=== PATIENT | male | born 1980 | race Caucasian/White ===

== ENCOUNTER 2020-09-24 00:54 | Inpatient (IN) ==
[2020-09-24] MEDS ORDERED: SODIUM CHLORIDE 0.9% 1000ML 1,000 ML IV SCH (01:45)
[2020-09-24 01:46] LABS: iSTAT Creatinine 1.3 mg/dl (0.6-1.3); iSTAT Hemoglobin 18.4 g/dl (14.0-18.0); iSTAT Ionized Calcium 0.98 mmol/l (1.12-1.32); iSTAT Potassium 4.1 mmol/L (3.3-5.0)
[2020-09-24] MEDS ORDERED: LABETALOL HCL IV 5 MG/ML 20ML IV STA (01:46)
[2020-09-24 01:57] LABS: Basophils # (auto) 0.04 K/uL (0-0.2); Basophils % (auto) 0.4 %; Eosinophils # (auto) 0.04 K/uL (0-0.5); Eosinophils % (auto) 0.4 %; Hematocrit (blood only) 51.4 % (42-52); Hemoglobin 17.2 g/dL (14.0-18.0); Immature Granulocytes # (auto) 0.03 K/uL (0.00-0.02); Immature Granulocytes % (auto) 0.3 %; Lymphocytes # (auto) 2.13 K/uL (1.2-3.4); Lymphocytes % (auto) 21.6 %; Mean Corpuscular Hemoglobin 29.8 pg (25-34); Mean Corpuscular Hgb Conc 33.5 g/dL (32-36); Mean Corpuscular Volume 88.9 fL (80-100); Mean Platelet Volume 9.5 fL (7.4-10.4); Monocytes # (auto) 0.51 K/uL (0.11-0.59); Monocytes % (auto) 5.2 %; Neutrophils % (auto) 72.1 %; Platelet Count 364 K/uL (130-400); RDW Coefficient of Variation 14.4 % (11.5-14.5); RDW Standard Deviation 46.6 fL (36.4-46.3); Red Blood Count 5.78 M/uL (4.7-6.1); White Blood Count 9.85 K/uL (4.8-10.8)
[2020-09-24] MEDS ORDERED: OPTIRAY 320 125ml IV ONE (02:04)
[2020-09-24 02:08] LABS: INR 1.4 (0.9-1.1); Partial Thromboplastin Time 26.3 Seconds (21.0-31.0)
[2020-09-24 02:15] LABS: BUN Creatinine Ratio 14.9 (10-20); Calcium 9.1 mg/dl (8.5-10.1); Creatinine Clr Calc Pharmacy 97.4 ml/min; Est GFR (African American) 75.9 ml/min; Est GFR (Non-African American) 65.5 ml/min; Magnesium 1.9 mg/dl (1.8-2.4); Potassium 4.1 mmol/L (3.5-5.1)
[2020-09-24 02:31] LABS: Albumin Globulin Ratio 1.1 (0.9-2); Albumin Level 3.7 gm/dl (3.4-5.0); Bilirubin,Total 1.8 mg/dl (0.2-1); Globulin 3.4 gm/dl (2.5-4.0); Total Protein 7.1 gm/dl (6.4-8.2); Troponin I 0.267 ng/ml (0-0.045)
--- NOTE | 2020-09-24 02:34 | CT Scan Report ---
CT angio abd pelvis wo/w con CT DOSE: 3697.58 mGy.cm CLINICAL HISTORY: pain, sob, htn, diaph TECHNIQUE: A dose lowering technique was utilized adhering to the principles of ALARA. COMPARISON STUDY: None FINDINGS: For limited evaluation of lower chest please see report of CT of the chest performed at the same time . Abdominal aorta is normal in caliber without evidence of aortic wall hematoma, aneurysmal dilatation or dissection. Bilateral renal, celiac and superior mesenteric artery and its branches are patent and well opacified. Liver is normal in size with mild decrease in attenuation of its parenchyma and no evidence of focal lesions. Mild ascites is seen. Gallbladder, spleen, pancreas and bilateral adrenal glands are unremarkable. No hydronephrosis or nephrolithiasis is seen. Urinary bladder is partially decompressed which limits evaluation. Prostate gland is not enlarged. Large left inguinal hernia is seen containing nondilated loop of large bowel. Small hiatal hernia is seen. Small amount of fluid collection is seen surrounding distal aspect of es ophagus. Bowel loops are nondilated. Appendix is not well seen. No free intra-abdominal gas is seen. Diffuse mesenteric edema and mild ascites is seen. Small amount of free fluid is also seen within retroperitoneal region. Multiple small lymph nodes are seen within the retroperitoneal region. No definite lymphadenopathy se en within mesentery. Osseous structures: Multilevel degenerative changes of the spine. Old fracture deformity of the right iliac bone. Diffuse subcutaneous edema is seen. IMPRESSION: 1. No evidence of aortic dissection, aneurysmal dilatation, aortic wall hematoma or fractures seen. 2. Large left inguinal hernia containing nondilated loop of large bowel. No evidence of bowel obstru ction. 3. Mild ascites, anasarca and diffuse mesenteric edema most likely representing edematous state and not acute intra-abdominal process. 4. Normal appearance of the bowel and solid organs. ACT 112: Negative or not required by law. The above report was generated using voice recognition software. It may contain grammatical, syntax o r spelling errors. Electronically signed by: Catherine Robertson DO 09/24/2020 2:33 AM
--- NOTE | 2020-09-24 02:45 | CT Scan Report ---
CT ANGIOGRAM OF THE CHEST COMBO CLINICAL HISTORY: Diaphoresis COMPARISON STUDY: None TECHNIQUE: Before and following the IV administration of 180 cc of Optiray, CT angiogram of the chest was performed from the thoracic inlet to the upper abdomen utilizing the dissection protocol. Images are reviewed in the axial, sagittal, and coronal planes. 3-D MIPS images are created and assessed. I V contrast was administered without complication. A dose lowering technique was utilized adhering to the principles of ALARA. CT DOSE: FINDINGS: Thoracic aorta is normal in caliber without evidence of dissection, hematoma or aneurysmal dilatation . Pulmonary artery is normal in caliber. Opacification within pulmonary artery is insufficient for eval uation for pulmonary artery embolus. There is no axillary, supra clavicle or internal mammary lymphadenopathy seen. There are multiple mottled mediastinal and hilar lymph nodes are seen measuring up to 1.8 cm in short axis. Thyroid: Imaged portions of the thyroid gland are normal in size and attenuation. Heart: Mild four-chamber cardiomegaly. Mild pericardial effusion is seen. Lungs and pleural spaces: Tracheobronchial tree is patent. There is 3.3 x 4.0 cm subpleural mass within left lower lobe with central area of decrease attenuatio n which might represent neoplastic or infectious process. Due to decreased attenuation within center of this mass pulmonary infarct is also possible. Small area of groundglass attenuation is seen at dependent portion of the right lower lobe. Trace edu ateral pleural effusion is seen.. Skeletal structures: No definite aggressive osseous lesions are seen. Mild degenerative changes of th e spine. Bilateral gynecomastia is seen. IMPRESSION: 1. Normal appearance of thoracic aorta without aneurysmal dilatation or dissection. 2. Mild four-chamber cardiomegaly. Pericardial effusion is seen. 3. Mediastinal lymphadenopathy. Questionable mass within left lower lobe as detailed above. Please c orrelate above-mentioned findings with prior history of neoplastic process. 4. Bilateral gynecomastia. ACT 112: Positive. There are findings on this exam that require communication between the performing entity and the patient following Patient Test Result Information Act ([place] Act 112) guidelines. The above report was generated using voice recognition software. It may contain grammatical, syntax o r spelling errors. Electronically signed by: Catherine Robertson DO 09/24/2020 2:43 AM
--- NOTE | 2020-09-24 02:58 | Emergency Department Note ---
History of Present Illness General Chief complaint: GI Assessment Stated complaint: UPSET STOMACH,DIARRHEA,SOME TROUBLE BREATHING Time Seen by Provider: 09/24/20 01:15 History of Present Illness This 40-year-old presents to the ER complaining of shortness of breath, abdominal discomfort, leg swelling, vomiting and diarrhea Location: Generalized Quality: Weak Severity: Moderate Duration: Past 2 weeks Timing: Started 2 weeks ago Context: Symptoms got worse and patient came in Modifying factors: better with rest; worse with activity Patient denies chest pain, fevers, flulike illness, urinary symptoms. He has not seen a doctor in greater than 10 years. No drug use. His appendix has been removed. He lives at home with his brother. Home Medications Medication Instructions Recorded Confirmed Type No Known Home Medications 09/24/20 09/24/20 History Allergies Allergy/AdvReac Type Severity Reaction Status Date / Time mold Allergy Intermediate Difficulty Verified 09/24/20 02:22 Breathing pollen extracts Allergy Intermediate Difficulty Verified 09/24/20 02:22 Breathing Past Med/Surg History Medical History High blood pressure Surgical History History of appendectomy Social History Smoking Status: Never smoker Preferred Language: Kosovan Feels Safe at Home: Yes Review of Systems A total of 10 systems reviewed and were otherwise negative Physical Exam Vital Signs Vital Signs - 24 hr 09/24/20 01:02 09/24/20 02:00 09/24/20 02:28 Temperature 36.4 C L Temperature Source Oral Pulse Rate 121 H 111 H Pulse Rate from SpO2 Sensor 111 H Respiratory Rate 20 16 Respiratory Effort / Characteristics Non-Labored Blood Pressure 171/118 H 162/124 H Blood Pressure Mean 135 136 Pulse Oximetry 100 96 99 Oxygen Delivery Method Room Air Room Air Room Air Sepsis Recent Fever Within 48 Hours No Sepsis New/Unexplained Change in Mental Status No Sepsis Action Taken by Nursing No Action Required 09/24/20 02:30 09/24/20 03:00 09/24/20 03:30 Temperature Temperature Source Pulse Rate 108 H 91 H 94 H Pulse Rate from SpO2 Sensor 108 H 91 H Respiratory Rate 13 18 20 Respiratory Effort / Characteristics Non-Labored Blood Pressure 154/117 H 140/108 H 139/98 Blood Pressure Mean 129 118 111 Pulse Oximetry 99 97 98 Oxygen Delivery Method Room Air Room Air Sepsis Recent Fever Within 48 Hours Sepsis New/Unexplained Change in Mental Status Sepsis Action Taken by Nursing 09/24/20 04:00 09/24/20 04:30 Temperature Temperature Source Pulse Rate 93 H 97 H Pulse Rate from SpO2 Sensor Respiratory Rate 22 22 Respiratory Effort / Characteristics Blood Pressure 146/115 H 146/124 H Blood Pressure Mean 125 131 Pulse Oximetry Oxygen Delivery Method Sepsis Recent Fever Within 48 Hours Sepsis New/Unexplained Change in Mental Status Sepsis Action Taken by Nursing VITALS: Vitals are noted on the nurse's note and reviewed by myself. Vital signs hypertensive tachycardic. GENERAL: Diaphoretic white male who appears unwell with anasarca SKIN: The skin was without rashes,or bruising. There is no tenting of the skin. Capillary reflex less than 2 seconds. HEAD: Normocephalic atraumatic. EARS: External auditory canals clear, tympanic membranes pearly moses without erythema or effusion bilaterally. EYES: Pupils equal round and reactive to light and accommodation. Conjunctivae without injection, sclerae without icterus. Extraocular movements intact. NOSE: Patent, turbinates without inflammation or discharge. No sinus tenderness. MOUTH: Mucous membranes moist. Pharynx without erythema or exudate. Uvula midline. Airway patent. Tongue does not deviate. NECK: Supple without nuchal rigidity. No lymphadenopathy. No thyromegaly. Cervical spine is nontender. No JVD. HEART: Tachycardic rate and rhythm LUNGS: Clear to auscultation bilaterally without wheezes, rales or rhonchi. No retractions or accessory muscle use. ABDOMEN: Positive bowel sounds x 4. Normal tympanic percussion. Soft, nontender, without masses or organomegaly. Guerra sign negative. No guarding or rebound tenderness. No CVA tenderness MUSCULOSKELETAL: No muscle atrophy noted. +2 pitting edema up to the knees bilaterally NEURO: Patient was alert and oriented to person place and time. Normal sensation to light and sharp touch. No focal neurological deficits. Course Administered Medications Heparin Sodium/Dextrose (Heparin Sodium/Dextrose) 25,000 units in 500 mls @ 34 mls/hr IV .[id number] [facility]; Protocol Stop: 10/24/20 04:28 Last Admin: 09/24/20 05:05 Dose: 1,700 units/hr, 34 mls/hr Documented by: [id number] Cosigned by: [id number] Discontinued Medications Furosemide (Furosemide 40 Mg/4 Ml Vial) 20 mg IV NOW STA Stop: 09/24/20 04:42 Last Admin: 09/24/20 05:05 Dose: 20 mg Documented by: [id number] Heparin Sodium/Dextrose (Heparin Iv Adult Wt-Based Standard *No* Bolus Protocol) 1 ea N/A NOW STA; Protocol Stop: 09/24/20 04:23 Last Admin: 09/24/20 04:42 Dose: Not Given Documented by: [id number] Sodium Chloride (Nss 1000ml) 1,000 mls @ 999 mls/hr IV .[id number] [facility] Stop: 09/24/20 02:45 Last Infusion: 09/24/20 03:26 Dose: 0 mls/hr Documented by: [id number] Admin: 09/24/20 02:07 Dose: 999 mls/hr Documented by: [id number] Calcium Gluconate 1,000 mg/ (Sodium Chloride) 60 mls @ 240 mls/hr IV NOW ONE Stop: 09/24/20 04:36 Last Admin: 09/24/20 05:05 Dose: 240 mls/hr Documented by: [id number] Ioversol (Optiray 320 125ml) 125 ml IV ONCE ONE Stop: 09/24/20 02:05 Last Admin: 09/24/20 02:04 Dose: 118 ml Documented by: [id number] Labetalol HCl (Labetalol Hcl Iv 5 Mg/Ml 20ml) 10 mg IV NOW STA Stop: 09/24/20 01:47 Last Admin: 09/24/20 02:29 Dose: 10 mg Documented by: [id number] Cosigned by: [id number] Medical Decision Making Medical Records Attestation: I reviewed the patient's medical records. Laboratory Data Attestation: I reviewed the patient's lab results. Result diagrams: 09/24/20 01:35 09/24/20 01:35 Lab Results 09/24/20 09/24/20 09/24/20 Range/Units 01:25 01:33 01:35 WBC 9.85 (4.8-10.8) K/uL RBC 5.78 (4.7-6.1) M/uL Hgb 17.2 (14.0-18.0) g/dL POC Hgb 18.4 H (14.0-18.0) g/dl Hct 51.4 (42-52) % POC Hct 54 H (42-52) % MCV 88.9 (80-100) fL MCH 29.8 (25-34) pg MCHC 33.5 (32-36) g/dL RDW Std Deviation 46.6 H (36.4-46.3) fL RDW Coeff of Camryn 14.4 (11.5-14.5) % Plt Count 364 (130-400) K/uL MPV 9.5 (7.4-10.4) fL Immature Gran % (Auto) 0.3 % Neut % (Auto) 72.1 % Lymph % (Auto) 21.6 % [place] % (Auto) 5.2 % Eos % (Auto) 0.4 % Baso % (Auto) 0.4 % Neut # (Auto) 7.10 H (1.4-6.5) K/uL Lymph # (Auto) 2.13 (1.2-3.4) K/uL [place] # (Auto) 0.51 (0.11-0.59) K/uL Eos # (Auto) 0.04 (0-0.5) K/uL Baso # (Auto) 0.04 (0-0.2) K/uL Immature Gran # (Auto) 0.03 H (0.00-0.02) K/uL PT (9.0-12.0) Seconds INR (0.9-1.1) APTT (21.0-31.0) Seconds PTT Ratio POC Sodium 136 (135-144) mmol/L Sodium (136-145) mmol/L POC Potassium 4.1 (3.3-5.0) mmol/L Potassium (3.5-5.1) mmol/L POC Chloride 99 L (101-112) mmol/L Chloride (98-107) mmol/L Carbon Dioxide (21-32) mmol/L POC Total CO2 21 L (24-31) mmol/L Anion Gap (3-11) POC Anion Gap 20.0 (16-25) mmol/L POC BUN 21 H (7-18) mg/dl BUN (7-18) mg/dl Creatinine (0.6-1.4) mg/dl POC Creatinine 1.3 (0.6-1.3) mg/dl Est Cr Clr Drug Dosing ml/min Est GFR ( Amer) ml/min Est GFR (Non-Af Amer) ml/min BUN/Creatinine Ratio (10-20) Glucose (70-99) mg/dl POC Glucose (other) 104 H (70-99) mg/dl Lactate (0.4-2.0) mmol/L Calcium (8.5-10.1) mg/dl POC Ioniz Calcium Maykel 0.98 L (1.12-1.32) mmol/l Magnesium (1.8-2.4) mg/dl Ferritin (8-388) ng/ml Total Bilirubin (0.2-1) mg/dl AST (15-37) U/L ALT (12-78) U/L Alkaline Phosphatase (45-117) U/L Troponin I (0-0.045) ng/ml NT-Pro-B Natriuret Pep (0-450) pg/ml Total Protein (6.4-8.2) gm/dl Albumin (3.4-5.0) gm/dl Globulin (2.5-4.0) gm/dl Albumin/Globulin Ratio (0.9-2) Procalcitonin (0-0.5) ng/ml TSH (0.300-4.500) uIu/ml Urine Color Urine Appearance (Clear) Urine pH (4.5-7.5) Ur Specific [place] (1.000-1.030) Urine Protein (Negative) Urine Glucose (UA) (Negative) Urine Ketones (Negative) Urine Blood (Negative) Urine Nitrite (Negative) Urine Bilirubin (Negative) Urine Urobilinogen (Negative) Ur Leukocyte Esterase (Negative) Urine WBC (Auto) (0-5) /hpf Urine RBC (Auto) (0-4) /hpf U Hyaline Cast (Auto) (0-5) /lpf U Epithel Cells (Auto) (0-5) /lpf Urine Bacteria (Auto) (Negative) Urine Opiates Screen (Neg) Ur Methadone, Qual (Neg) Urine Barbiturates (Neg) Ur Phencyclidine (PCP) (Neg) U Amphetamin/Meth Scrn (Neg) MDMA (Ecstasy) Screen (Neg) U Benzodiazepines Scrn (Neg) Ur Cocaine Metabolite (Neg) U Marijuana (THC) Screen (Neg) Anaplasma Smear See Comment Lyme Disease IgG Ab (Negative) Lyme Disease IgM Ab (Negative) COVID-19 Eval Order SARS-CoV-2 (PCR) (Negative) Hep Bs Antigen Neg (Neg) Hepatitis C Antibody Neg (Neg) 09/24/20 09/24/20 09/24/20 Range/Units 01:35 01:35 01:35 WBC (4.8-10.8) K/uL RBC (4.7-6.1) M/uL Hgb (14.0-18.0) g/dL POC Hgb (14.0-18.0) g/dl Hct (42-52) % POC Hct (42-52) % MCV (80-100) fL MCH (25-34) pg MCHC (32-36) g/dL RDW Std Deviation (36.4-46.3) fL RDW Coeff of Camryn (11.5-14.5) % Plt Count (130-400) K/uL MPV (7.4-10.4) fL Immature Gran % (Auto) % Neut % (Auto) % Lymph % (Auto) % [place] % (Auto) % Eos % (Auto) % Baso % (Auto) % Neut # (Auto) (1.4-6.5) K/uL Lymph # (Auto) (1.2-3.4) K/uL [place] # (Auto) (0.11-0.59) K/uL Eos # (Auto) (0-0.5) K/uL Baso # (Auto) (0-0.2) K/uL Immature Gran # (Auto) (0.00-0.02) K/uL PT 14.0 H (9.0-12.0) Seconds INR 1.4 H (0.9-1.1) APTT 26.3 (21.0-31.0) Seconds PTT Ratio 1.0 POC Sodium (135-144) mmol/L Sodium 133 L (136-145) mmol/L POC Potassium (3.3-5.0) mmol/L Potassium 4.1 (3.5-5.1) mmol/L POC Chloride (101-112) mmol/L Chloride 102 (98-107) mmol/L Carbon Dioxide 23 (21-32) mmol/L POC Total CO2 (24-31) mmol/L Anion Gap 8.0 (3-11) POC Anion Gap (16-25) mmol/L POC BUN (7-18) mg/dl BUN 20 H (7-18) mg/dl Creatinine 1.33 (0.6-1.4) mg/dl POC Creatinine (0.6-1.3) mg/dl Est Cr Clr Drug Dosing 97.4 ml/min Est GFR ( Amer) 75.9 ml/min Est GFR (Non-Af Amer) 65.5 ml/min BUN/Creatinine Ratio 14.9 (10-20) Glucose 98 (70-99) mg/dl POC Glucose (other) (70-99) mg/dl Lactate (0.4-2.0) mmol/L Calcium 9.1 (8.5-10.1) mg/dl POC Ioniz Calcium Maykel (1.12-1.32) mmol/l Magnesium 1.9 (1.8-2.4) mg/dl Ferritin (8-388) ng/ml Total Bilirubin 1.8 H (0.2-1) mg/dl AST 71 H (15-37) U/L ALT 271 H (12-78) U/L Alkaline Phosphatase 64 (45-117) U/L Troponin I 0.267 H* (0-0.045) ng/ml NT-Pro-B Natriuret Pep 30571 H (0-450) pg/ml Total Protein 7.1 (6.4-8.2) gm/dl Albumin 3.7 (3.4-5.0) gm/dl Globulin 3.4 (2.5-4.0) gm/dl Albumin/Globulin Ratio 1.1 (0.9-2) Procalcitonin < 0.05 (0-0.5) ng/ml TSH (0.300-4.500) uIu/ml Urine Color Urine Appearance (Clear) Urine pH (4.5-7.5) Ur Specific [place] (1.000-1.030) Urine Protein (Negative) Urine Glucose (UA) (Negative) Urine Ketones (Negative) Urine Blood (Negative) Urine Nitrite (Negative) Urine Bilirubin (Negative) Urine Urobilinogen (Negative) Ur Leukocyte Esterase (Negative) Urine WBC (Auto) (0-5) /hpf Urine RBC (Auto) (0-4) /hpf U Hyaline Cast (Auto) (0-5) /lpf U Epithel Cells (Auto) (0-5) /lpf Urine Bacteria (Auto) (Negative) Urine Opiates Screen (Neg) Ur Methadone, Qual (Neg) Urine Barbiturates (Neg) Ur Phencyclidine (PCP) (Neg) U Amphetamin/Meth Scrn (Neg) MDMA (Ecstasy) Screen (Neg) U Benzodiazepines Scrn (Neg) Ur Cocaine Metabolite (Neg) U Marijuana (THC) Screen (Neg) Anaplasma Smear Lyme Disease IgG Ab (Negative) Lyme Disease IgM Ab (Negative) COVID-19 Eval Order SARS-CoV-2 (PCR) (Negative) Hep Bs Antigen (Neg) Hepatitis C Antibody (Neg) 09/24/20 09/24/20 09/24/20 Range/Units 01:35 01:35 02:21 WBC (4.8-10.8) K/uL RBC (4.7-6.1) M/uL Hgb (14.0-18.0) g/dL POC Hgb (14.0-18.0) g/dl Hct (42-52) % POC Hct (42-52) % MCV (80-100) fL MCH (25-34) pg MCHC (32-36) g/dL RDW Std Deviation (36.4-46.3) fL RDW Coeff of Camryn (11.5-14.5) % Plt Count (130-400) K/uL MPV (7.4-10.4) fL Immature Gran % (Auto) % Neut % (Auto) % Lymph % (Auto) % [place] % (Auto) % Eos % (Auto) % Baso % (Auto) % Neut # (Auto) (1.4-6.5) K/uL Lymph # (Auto) (1.2-3.4) K/uL [place] # (Auto) (0.11-0.59) K/uL Eos # (Auto) (0-0.5) K/uL Baso # (Auto) (0-0.2) K/uL Immature Gran # (Auto) (0.00-0.02) K/uL PT (9.0-12.0) Seconds INR (0.9-1.1) APTT (21.0-31.0) Seconds PTT Ratio POC Sodium (135-144) mmol/L Sodium (136-145) mmol/L POC Potassium (3.3-5.0) mmol/L Potassium (3.5-5.1) mmol/L POC Chloride (101-112) mmol/L Chloride (98-107) mmol/L Carbon Dioxide (21-32) mmol/L POC Total CO2 (24-31) mmol/L Anion Gap (3-11) POC Anion Gap (16-25) mmol/L POC BUN (7-18) mg/dl BUN (7-18) mg/dl Creatinine (0.6-1.4) mg/dl POC Creatinine (0.6-1.3) mg/dl Est Cr Clr Drug Dosing ml/min Est GFR ( Amer) ml/min Est GFR (Non-Af Amer) ml/min BUN/Creatinine Ratio (10-20) Glucose (70-99) mg/dl POC Glucose (other) (70-99) mg/dl Lactate 2.5 H* (0.4-2.0) mmol/L Calcium (8.5-10.1) mg/dl POC Ioniz Calcium Maykel (1.12-1.32) mmol/l Magnesium (1.8-2.4) mg/dl Ferritin (8-388) ng/ml Total Bilirubin (0.2-1) mg/dl AST (15-37) U/L ALT (12-78) U/L Alkaline Phosphatase (45-117) U/L Troponin I (0-0.045) ng/ml NT-Pro-B Natriuret Pep (0-450) pg/ml Total Protein (6.4-8.2) gm/dl Albumin (3.4-5.0) gm/dl Globulin (2.5-4.0) gm/dl Albumin/Globulin Ratio (0.9-2) Procalcitonin (0-0.5) ng/ml TSH (0.300-4.500) uIu/ml Urine Color Urine Appearance (Clear) Urine pH (4.5-7.5) Ur Specific [place] (1.000-1.030) Urine Protein (Negative) Urine Glucose (UA) (Negative) Urine Ketones (Negative) Urine Blood (Negative) Urine Nitrite (Negative) Urine Bilirubin (Negative) Urine Urobilinogen (Negative) Ur Leukocyte Esterase (Negative) Urine WBC (Auto) (0-5) /hpf Urine RBC (Auto) (0-4) /hpf U Hyaline Cast (Auto) (0-5) /lpf U Epithel Cells (Auto) (0-5) /lpf Urine Bacteria (Auto) (Negative) Urine Opiates Screen (Neg) Ur Methadone, Qual (Neg) Urine Barbiturates (Neg) Ur Phencyclidine (PCP) (Neg) U Amphetamin/Meth Scrn (Neg) MDMA (Ecstasy) Screen (Neg) U Benzodiazepines Scrn (Neg) Ur Cocaine Metabolite (Neg) U Marijuana (THC) Screen (Neg) Anaplasma Smear Lyme Disease IgG Ab (Negative) Lyme Disease IgM Ab (Negative) COVID-19 Eval Order Covid19 at [facility] SARS-CoV-2 (PCR) NEGATIVE (Negative) Hep Bs Antigen (Neg) Hepatitis C Antibody (Neg) 09/24/20 09/24/20 09/24/20 Range/Units 03:09 03:09 03:20 WBC (4.8-10.8) K/uL RBC (4.7-6.1) M/uL Hgb (14.0-18.0) g/dL POC Hgb (14.0-18.0) g/dl Hct (42-52) % POC Hct (42-52) % MCV (80-100) fL MCH (25-34) pg MCHC (32-36) g/dL RDW Std Deviation (36.4-46.3) fL RDW Coeff of Camryn (11.5-14.5) % Plt Count (130-400) K/uL MPV (7.4-10.4) fL Immature Gran % (Auto) % Neut % (Auto) % Lymph % (Auto) % [place] % (Auto) % Eos % (Auto) % Baso % (Auto) % Neut # (Auto) (1.4-6.5) K/uL Lymph # (Auto) (1.2-3.4) K/uL [place] # (Auto) (0.11-0.59) K/uL Eos # (Auto) (0-0.5) K/uL Baso # (Auto) (0-0.2) K/uL Immature Gran # (Auto) (0.00-0.02) K/uL PT (9.0-12.0) Seconds INR (0.9-1.1) APTT (21.0-31.0) Seconds PTT Ratio POC Sodium (135-144) mmol/L Sodium (136-145) mmol/L POC Potassium (3.3-5.0) mmol/L Potassium (3.5-5.1) mmol/L POC Chloride (101-112) mmol/L Chloride (98-107) mmol/L Carbon Dioxide (21-32) mmol/L POC Total CO2 (24-31) mmol/L Anion Gap (3-11) POC Anion Gap (16-25) mmol/L POC BUN (7-18) mg/dl BUN (7-18) mg/dl Creatinine (0.6-1.4) mg/dl POC Creatinine (0.6-1.3) mg/dl Est Cr Clr Drug Dosing ml/min Est GFR ( Amer) ml/min Est GFR (Non-Af Amer) ml/min BUN/Creatinine Ratio (10-20) Glucose (70-99) mg/dl POC Glucose (other) (70-99) mg/dl Lactate (0.4-2.0) mmol/L Calcium (8.5-10.1) mg/dl POC Ioniz Calcium [place] (1.12-1.32) mmol/l Magnesium (1.8-2.4) mg/dl Ferritin 232.9 (8-388) ng/ml Total Bilirubin (0.2-1) mg/dl AST (15-37) U/L ALT (12-78) U/L Alkaline Phosphatase (45-117) U/L Troponin I 0.286 H* (0-0.045) ng/ml NT-Pro-B Natriuret Pep (0-450) pg/ml Total Protein (6.4-8.2) gm/dl Albumin (3.4-5.0) gm/dl Globulin (2.5-4.0) gm/dl Albumin/Globulin Ratio (0.9-2) Procalcitonin (0-0.5) ng/ml TSH 3.560 (0.300-4.500) uIu/ml Urine Color Yellow Urine Appearance Clear (Clear) Urine pH 5.5 (4.5-7.5) Ur Specific [place] > 1.045 H (1.000-1.030) Urine Protein 1+ H (Negative) Urine Glucose (UA) Negative (Negative) Urine Ketones Negative (Negative) Urine Blood Negative (Negative) Urine Nitrite Negative (Negative) Urine Bilirubin Negative (Negative) Urine Urobilinogen Negative (Negative) Ur Leukocyte Esterase Negative (Negative) Urine WBC (Auto) 1-5 (0-5) /hpf Urine RBC (Auto) 0-4 (0-4) /hpf U Hyaline Cast (Auto) 0 (0-5) /lpf U Epithel Cells (Auto) 5-10 H (0-5) /lpf Urine Bacteria (Auto) Negative (Negative) Urine Opiates Screen (Neg) Ur Methadone, Qual (Neg) Urine Barbiturates (Neg) Ur Phencyclidine (PCP) (Neg) U Amphetamin/Meth Scrn (Neg) MDMA (Ecstasy) Screen (Neg) U Benzodiazepines Scrn (Neg) Ur Cocaine Metabolite (Neg) U Marijuana (THC) Screen (Neg) Anaplasma Smear Lyme Disease IgG Ab Negative (Negative) Lyme Disease IgM Ab Negative (Negative) COVID-19 Eval Order SARS-CoV-2 (PCR) (Negative) Hep Bs Antigen (Neg) Hepatitis C Antibody (Neg) 09/24/20 09/24/20 Range/Units 03:20 04:18 WBC (4.8-10.8) K/uL RBC (4.7-6.1) M/uL Hgb (14.0-18.0) g/dL POC Hgb (14.0-18.0) g/dl Hct (42-52) % POC Hct (42-52) % MCV (80-100) fL MCH (25-34) pg MCHC (32-36) g/dL RDW Std Deviation (36.4-46.3) fL RDW Coeff of Camryn (11.5-14.5) % Plt Count (130-400) K/uL MPV (7.4-10.4) fL Immature Gran % (Auto) % Neut % (Auto) % Lymph % (Auto) % [place] % (Auto) % Eos % (Auto) % Baso % (Auto) % Neut # (Auto) (1.4-6.5) K/uL Lymph # (Auto) (1.2-3.4) K/uL [place] # (Auto) (0.11-0.59) K/uL Eos # (Auto) (0-0.5) K/uL Baso # (Auto) (0-0.2) K/uL Immature Gran # (Auto) (0.00-0.02) K/uL PT (9.0-12.0) Seconds INR (0.9-1.1) APTT (21.0-31.0) Seconds PTT Ratio POC Sodium (135-144) mmol/L Sodium (136-145) mmol/L POC Potassium (3.3-5.0) mmol/L Potassium (3.5-5.1) mmol/L POC Chloride (101-112) mmol/L Chloride (98-107) mmol/L Carbon Dioxide (21-32) mmol/L POC Total CO2 (24-31) mmol/L Anion Gap (3-11) POC Anion Gap (16-25) mmol/L POC BUN (7-18) mg/dl BUN (7-18) mg/dl Creatinine (0.6-1.4) mg/dl POC Creatinine (0.6-1.3) mg/dl Est Cr Clr Drug Dosing ml/min Est GFR ( Amer) ml/min Est GFR (Non-Af Amer) ml/min BUN/Creatinine Ratio (10-20) Glucose (70-99) mg/dl POC Glucose (other) (70-99) mg/dl Lactate 1.9 (0.4-2.0) mmol/L Calcium (8.5-10.1) mg/dl POC Ioniz Calcium [place] (1.12-1.32) mmol/l Magnesium (1.8-2.4) mg/dl Ferritin (8-388) ng/ml Total Bilirubin (0.2-1) mg/dl AST (15-37) U/L ALT (12-78) U/L Alkaline Phosphatase (45-117) U/L Troponin I (0-0.045) ng/ml NT-Pro-B Natriuret Pep (0-450) pg/ml Total Protein (6.4-8.2) gm/dl Albumin (3.4-5.0) gm/dl Globulin (2.5-4.0) gm/dl Albumin/Globulin Ratio (0.9-2) Procalcitonin (0-0.5) ng/ml TSH (0.300-4.500) uIu/ml Urine Color Urine Appearance (Clear) Urine pH (4.5-7.5) Ur Specific [place] (1.000-1.030) Urine Protein (Negative) Urine Glucose (UA) (Negative) Urine Ketones (Negative) Urine Blood (Negative) Urine Nitrite (Negative) Urine Bilirubin (Negative) Urine Urobilinogen (Negative) Ur Leukocyte Esterase (Negative) Urine WBC (Auto) (0-5) /hpf Urine RBC (Auto) (0-4) /hpf U Hyaline Cast (Auto) (0-5) /lpf U Epithel Cells (Auto) (0-5) /lpf Urine Bacteria (Auto) (Negative) Urine Opiates Screen Neg (Neg) Ur Methadone, Qual Neg (Neg) Urine Barbiturates Neg (Neg) Ur Phencyclidine (PCP) Neg (Neg) U Amphetamin/Meth Scrn Neg (Neg) MDMA (Ecstasy) Screen Neg (Neg) U Benzodiazepines Scrn Neg (Neg) Ur Cocaine Metabolite Neg (Neg) U Marijuana (THC) Screen Neg (Neg) Anaplasma Smear Lyme Disease IgG Ab (Negative) Lyme Disease IgM Ab (Negative) COVID-19 Eval Order SARS-CoV-2 (PCR) (Negative) Hep Bs Antigen (Neg) Hepatitis C Antibody (Neg) Imaging Data Attestation: I personally reviewed and interpreted this imaging study as follows: Radiologist's Impression: Abdomen/Pelvis CTA 09/24/20 01:40 CT angio abd pelvis wo/w con CT DOSE: 3697.58 mGy.cm CLINICAL HISTORY: pain, sob, htn, diaph TECHNIQUE: A dose lowering technique was utilized adhering to the principles of ALARA. COMPARISON STUDY: None FINDINGS: For limited evaluation of lower chest please see report of CT of the chest performed at the same time. Abdominal aorta is normal in caliber without evidence of aortic wall hematoma, aneurysmal dilatation or dissection. Bilateral renal, celiac and superior mesenteric artery and its branches are patent and well opacified. Liver is normal in size with mild decrease in attenuation of its parenchyma and no evidence of focal lesions. Mild ascites is seen. Gallbladder, spleen, pancreas and bilateral adrenal glands are unremarkable. No hydronephrosis or nephrolithiasis is seen. Urinary bladder is partially decompressed which limits evaluation. Prostate gland is not enlarged. Large left inguinal hernia is seen containing nondilated loop of large bowel. Small hiatal hernia is seen. Small amount of fluid collection is seen surrounding distal aspect of esophagus. Bowel loops are nondilated. Appendix is not well seen. No free intra-abdominal gas is seen. Diffuse mesenteric edema and mild ascites is seen. Small amount of free fluid is also seen within retroperitoneal region. Multiple small lymph nodes are seen within the retroperitoneal region. No definite lymphadenopathy seen within mesentery. Osseous structures: Multilevel degenerative changes of the spine. Old fracture deformity of the right iliac bone. Diffuse subcutaneous edema is seen. IMPRESSION: 1. No evidence of aortic dissection, aneurysmal dilatation, aortic wall hematoma or fractures seen. 2. Large left inguinal hernia containing nondilated loop of large bowel. No evidence of bowel obstruction. 3. Mild ascites, anasarca and diffuse mesenteric edema most likely representing edematous state and not acute intra-abdominal process. 4. Normal appearance of the bowel and solid organs. ACT 112: Negative or not required by law. The above report was generated using voice recognition software. It may contain grammatical, syntax or spelling errors. Electronically signed by: Catherine Robertson DO 09/24/2020 2:33 AM Chest CTA 09/24/20 01:40 CT ANGIOGRAM OF THE CHEST COMBO CLINICAL HISTORY: Diaphoresis COMPARISON STUDY: None TECHNIQUE: Before and following the IV administration of 180 cc of Optiray, CT angiogram of the chest was performed from the thoracic inlet to the upper ab domen utilizing the dissection protocol. Images are reviewed in the axial, sagittal, and coronal planes. 3-D MIPS images are created and assessed. IV contrast was administered without complication. A dose lowering technique was utilized adhering to the principles of ALARA. CT DOSE: FINDINGS: Thoracic aorta is normal in caliber without evidence of dissection, hematoma or aneurysmal dilatation. Pulmonary artery is normal in caliber. Opacification within pulmonary artery is insufficient for evaluation for pulmonary artery embolus. There is no axillary, supra clavicle or internal mammary lymphadenopathy seen. There are multiple mottled mediastinal and hilar lymph nodes are seen measuring up to 1.8 cm in short axis. Thyroid: Imaged portions of the thyroid gland are normal in size and attenuation. Heart: Mild four-chamber cardiomegaly. Mild pericardial effusion is seen. Lungs and pleural spaces: Tracheobronchial tree is patent. There is 3.3 x 4.0 cm subpleural mass within left lower lobe with central area of decrease attenuation which might represent neoplastic or infectious process. Due to decreased attenuation within center of this mass pulmonary infarct is also possible. Small area of groundglass attenuation is seen at dependent portion of the right lower lobe. Trace bilateral pleural effusion is seen.. Skeletal structures: No definite aggressive osseous lesions are seen. Mild degenerative changes of the spine. Bilateral gynecomastia is seen. IMPRESSION: 1. Normal appearance of thoracic aorta without aneurysmal dilatation or d issection. 2. Mild four-chamber cardiomegaly. Pericardial effusion is seen. 3. Mediastinal lymphadenopathy. Questionable mass within left lower lobe as detailed above. Please correlate above-mentioned findings with prior history of neoplastic process. 4. Bilateral gynecomastia. ACT 112: Positive. There are findings on this exam that require communication between the performing entity and the patient following Patient Test Result Information Act ([place] Act 112) guidelines. The above report was generated using voice recognition software. It may contain grammatical, syntax or spelling errors. Electronically signed by: Catherine Robertson DO 09/24/2020 2:[address] [facility] Narrative Prior records/ancillary studies reviewed and summarized above. Nursing notes reviewed. Additional history obtained from nursing. The patient's history was concerning for shortness of breath, vomiting, diarrhea, weakness. Differential diagnosis: Etiologies such as metabolic, infection, hypo/hyperglycemia, electrolyte abnormalities, cardiac sources, intracerebral event, toxicologic, neurologic, as well as others were entertained. Physical examination: As above. ER treatment provided: IV Lock An order was placed for continuous cardiac monitoring. The monitor shows a rate of 60-1 30 with a sinus rhythm. IV fluids, labetalol On reassessment the patient felt better. Diagnostics interpretation by me: ECG: Ordered for dyspnea EKG: Poor baseline, Normal sinus, left bundle branch, no acute ST-T wave changes, rate of 112. Impression left bundle branch block interpreted by myself I think arrhythmia is unlikely. EKG shows no interval abnormalities such as QT prolongation or WPW. There are no findings to suggest Brugada syndrome. Cardiac monitoring in the emergency department reveals no tachycardic or bradycardic dysrhythmia. Hypertrophic cardiomyopathy was considered but there are no clear historical elements pointing toward this. EKG is not suggestive. The QRS voltage is not extremely large and there are no suggestive Q waves. The labs revealed elevated troponin, elevated LFTs. Negative procalcitonin Elevated BNP Imaging studies: Chest x-ray with cardiomyopathy with questionable widened mediastinum per my interpretation. Dissection study was ordered and this was reviewed as above Consultation: A consultation was placed with the hospitalist. The case was discussed and diagnostics were reviewed. The patient was evaluated in the ER for further treatment. Exam and history seem consistent with cardiomyopathy with positive troponin and uncontrolled hypertension with anasarca. Patient had a positive troponin. Repeat EKG is unchanged. He felt better after his blood pressure was controlled. Medicine was consulted. He will be evaluated for admission. By the evaluation outlined above emergent etiologies such as infection, electrolyte abnormalities, intracerebral event, toxologic, neurologic, abnormalities blood glucose, metabolic, as well as others were deemed relatively unlikely. The pt informed about the findings as listed above. All questions were answered and pleased with the treatment. The chart was completed utilizing [employer] Speech voice recognition software. Grammatical errors, random word insertions, pronoun errors, and incomplete sente nces are an occassional consequence of this system due to software limitations, ambient noise, and hardware issues. Any formal questions or concerns about the content, text, or information cont grandma ained within the body of this dictation should be directly addressed to the physician automobile mechanic assistant for clarification. Impression & Plan Cardiomegaly, Anasarca, Elevated troponin Discharge Plan Visit Data Chief Complaint: GI Assessment Stated Complaint: UPSET STOMACH,DIARRHEA,SOME TROUBLE BREATHING ED Provider: Sunni Amaral ED Midlevel Provider: Yelitza Singh Discharge Problem: Cardiomegaly, Anasarca, Elevated troponin Patient Disposition: Admitted As Inpatient Condition: Fair Forms Stand Alone Forms: [employer] Prescriptions Prescriptions: No Action No Known Home Medications RF: 0 Referrals Referrals: PCP,NO [Primary Care Provider] -
[2020-09-24 03:29] LABS: Hepatitis B Surf Ag Rflx Conf Neg (Neg)
[2020-09-24 03:33] LABS: Appearance Urine Clear (Clear); Bacteria Urine Automated Negative (Negative); Bilirubin Urine Negative (Negative); Blood Urine Negative (Negative); Cast Urine Automated 0 /lpf (0-5); Color Urine Yellow; Glucose Urine UA Negative (Negative); Ketones Urine Negative (Negative); Leukocyte Esterase Urine Negative (Negative); Nitrite Urine Negative (Negative); Protein Urine 1+ (Negative); RBC Urine Automated 0-4 /hpf (0-4); Specific Gravity Urine > 1.045 (1.000-1.030); Urobilinogen Urine Negative (Negative); pH Urine 5.5 (4.5-7.5)
[2020-09-24 03:57] LABS: Hepatitis C IgG 13Yrs+Old_Rflx Neg (Neg)
[2020-09-24 04:22] LABS: Thyroid Stimulating Hormone 3.56 uIu/ml (0.300-4.500); Troponin I 0.286 ng/ml (0-0.045)
[2020-09-24] MEDS ORDERED: CALCIUM GLUCONATE 10% 1,000 MG in SODIUM CHLORIDE 0.9% 50 ML IV ONE (04:22)
[2020-09-24] MEDS ORDERED: ONDANSETRON INJ 2 MG/ML 2 ML VIAL IV PRN (04:22)
[2020-09-24] MEDS ORDERED: MoRPHine SULFATE 2 MG/ML CARP IV PRN (04:22)
[2020-09-24] MEDS ORDERED: Heparin IV Adult Wt-Based Standard *NO* Bolus Protocol STA (04:22)
[2020-09-24] MEDS ORDERED: NITROGLYCERIN SL 0.4 MG/TAB TAB SL PRN (04:22)
--- NOTE | 2020-09-24 04:28 | History & Physical Report ---
Date of Service September 24, 2020 Assessment & Plan (1) LBBB (left bundle branch block): 40 yo M Hx HTN admitted for ACS rule out, elevated LFTs, and pulmonary mass. Neuro - - No present concerns. Cardiac - LBBB, elevated troponin, cardiomegaly: - Presents without chest pain or pressure, but with abdominal pain with associated SOB and diaphoresis. - Elevated troponin to 0.267 -> 0.286 in ER. LBBB noted on EKG, no baseline to compare. - CXR and CTA Chest show cardiomegaly[place] [address]. - Tick-borne pathogen labwork ordered, CMV, EBV, HIV. - TSH normal. - UDS pending. - Hgb A1c and lipid panel ordered for AM. - Heparin gtt started, aspirin 325mg given. - Suspect structural heart disease such as dilated cardiomyopathy as compared to ischemia. No current symptoms. Will get Echocardiogram and Cardiology consult in AM. HTN: - BP on arrival of 170/110. Received labetalol 10mg IV x1 with decrease in BP to 130s/90s. - Lopressor 5mg IV q4h prn BP >180/100. Will increase beta tunde as needed. - Defer starting PO daily medications to day team. Respiratory - Pulmonary mass: - Noted on imaging to have 3.3x4cm subpleural mass within left lower lobe with central area of decrease attenuation; differentials include neoplastic or infectious process, pulmonary infarct. - No TB or tick exposures to patient's knowledge. HIV, CMV, EBV, tick serologies pending. - Consider pulm consult. Possible with mediastinal lymphadenopathy that this is neoplastic as opposed to viral in etiology if serologies negative. Anasarca: - Noted to have pitting edema on exam, anasarca on imaging, elevated pro-BNP. - Despite fluid overload patient is saturating well on room air. Supplemental O2 as needed. - Lasix 20mg IV x1 given as patient is diuretic naive. - Further diurese as needed based on clinical exam. GI - Elevated LFTs: - Admission labwork shows mildly elevated LFTs, TBili, INR. - CTAP did not note hepatic steatosis, hepatitis. - Did note anasarca and diffuse mesenteric edema. - Suspect elevated LFTs due to hepatic congestion from fluid overload. Other differentials include NAFLD, viral hepatitis. - Daily LFTs, and evaluation as above. RENAL/LYTES - Hypocalcemia: - ICal 0.98 in ER; given calcium gluconate 1g IV. - Repeat BMP later today. - - No present concerns. ENDO - - Normal TSH. - A1c ordered. HEME - - Elevated INR noted. - Suspect liver cause, see above. ID - - HIV, CMV, EBV, Lyme, Anaplasma, Babesia, Ehrlichia labwork ordered. INTEGUMENTARY - - No present concerns. DVT PROPHYLAXIS - - Heparin gtt as above for ACS rule out. Code Status: FULL CODE Diet: NPO Dispo: PCU (2) Elevated troponin: (3) Cardiomegaly: (4) Elevated LFTs: (5) Hypocalcemia: (6) Lung mass: History of Present Illness Chief Complaint: abdominal pain Primary Care Provider: JENNI PCP 40 yo M Hx HTN presented to ER for 1 week of intermittent abdominal pain, nausea, vomiting; with associated diaphoresis and SOB. No correlation that the patient can determine based on foods, activity. No fevers or chills, no sick contacts. Does not smoke or use drugs, no alcohol use. He denies HIV or TB risk factors, and has no tick exposures. Admits to not seeing a doctor in about 10 years, and states he has had HTN "since he was 13". In the ER patient was found to be tachycardic to 110s, with elevated BP 170/110. Labwork revealed largely normal CBC, elevated INR, low ICal, elevated LFTs, elevated troponin, elevated BNP. CXR showed significant cardiomegaly. CTA Chest showed left lung mass, mediastinal lymphadenopathy, and cardiomegaly. CTAP showed left inguinal hernia with portion of non-obstructed large bowel within, mild ascites, anasarca, and diffuse mesenteric edema. No evidence on imaging of aortic aneurysm or dissection. Allergies Allergy/AdvReac Type Severity Reaction Status Date / Time mold Allergy Intermediate Difficulty Verified 09/24/20 02:22 Breathing pollen extracts Allergy Intermediate Difficulty Verified 09/24/20 02:22 Breathing Home Medications Medication Instructions Recorded Confirmed Type No Known Home Medications 09/24/20 09/24/20 History Past Med/Surg History Medical History High blood pressure Surgical History History of appendectomy Social History Smoking Status: Never smoker Preferred Language: Swazi Feels Safe at Home: Yes Review of Systems Review of Systems: All systems reviewed & are unremarkable except as noted in HPI & below Note that ROS in my note is at time of my interview, please see ER record and HPI for prior symptoms Constitutional: no fever, no chills and no malaise Respiratory: no cough and no dyspnea Cardiovascular: no chest pain, no palpitations and no edema Gastrointestinal: no abdominal pain, no constipation and no diarrhea/loose stools Physical Exam Constitutional: well developed and + obese Eyes: PERRL, conjunctivae normal, anicteric sclerae ENMT: external ear and nose normal, oropharynx normal Neck: + thick neck no cervical lymphadenopathy Respiratory: normal respiratory effort, lungs clear to auscultation Cardiovascular: Rate/Rhythm: regular rhythm and + tachycardic Heart Sounds: no murmur Extremities: + edema (3+ pitting edema bilateral LE to knees) Gastrointestinal (Abdomen): normal bowel sounds, soft, nontender, no hepatosplenomegaly Musculoskeletal: no cyanosis or clubbing, extremities motor strength 5/5 Skin: no rashes, warm and dry Neurologic: Alert and oriented, flat affect Psychiatric: A+Ox3, euthymic affect Results & Data Results & Data ([facility]) Vital Signs (Past 12 Hours) Vital Signs Temp Pulse Resp BP Pulse Ox 09/24/20 03:30 94 H 20 139/98 98 09/24/20 03:00 91 H 18 140/108 H 97 09/24/20 02:30 108 H 13 154/117 H 99 09/24/20 02:28 99 09/24/20 02:00 111 H 16 162/124 H 96 09/24/20 01:02 36.4 C L 121 H 20 171/118 H 100 Code Status & VTE Plan VTE Prophylaxis Plan VTE Prophylaxis will be ordered: Yes Supervising Physician Co-Signing Physician Notes Patient seen and examined, chart reviewed, case discussed with Dr. Medina and I agree with her assessment and plan as documented above. Briefly, patient is a 40yo male with longstanding history of HTN (states he was 13 when diagnosed) presents with intermittent epigastric abdominal pain, vomiting and diarrhea. He developed bilateral LE swelling and SOB. Patient tachycardic on exam with bilateral LE edema Labs significant for elevated troponin, BNP, LFTs and INR Imaging with cardiac dilation, LAD and pulmonary lesion EKG with LBBB On exam he is afebrile, tachycardic Skin - warm, dry, eczema present on hands HEENT - NC/AT, PERRL, MMM, Neck supple, +JVD to jaw line Heart - +S1/S2, regular, tachycardic with occasional ectopy, no m/r/g Lungs - CTA Abd - +BS, soft, mildly tender with deep palpation, no rebound/guarding/peritoneal signs Ext - +edema 3+ to knees Labs and images reviewed Assessment/Plan -2D echo -Tox screen, viral panel to include CMV, EBV and HIV, trend troponin -Cardiology consultation -LBB - due to structural disease vs ischemic? -Lung mass - viral workup. Consider pulmonary assessment -Remainder of plan as above
[2020-09-24] MEDS ORDERED: FUROSEMIDE 40 MG/4 ML VIAL IV STA (04:41)
[2020-09-24 04:54] LABS: Ferritin 232.9 ng/ml (8-388)
[2020-09-24 04:56] LABS: Amphetamines+Metham, Urine Neg (Neg); Barbiturates, Urine Neg (Neg); Benzodiazepine, Urine Neg (Neg); Cocaine, Urine Neg (Neg); MDMA (Ecstacy), Urine Neg (Neg); Methadone, Urine Neg (Neg); Opiate, Urine Neg (Neg); Phencyclidine, Urine Neg (Neg)
[2020-09-24 05:00] LABS: Lyme Ab IgG w/WB Rflx Negative (Negative); Lyme Ab IgM w/WB Rflx Negative (Negative)
[2020-09-24] MEDS: HEPARIN SODIUM/DEXTROSE 25,000 UNITS/500 ML BAG IV SCH ×2 (05:05→20:53)
--- NOTE | 2020-09-24 05:52 | Billing Data ---
Date of Service September 24, 2020 Coding Level of Care Code 03849 Initial Inpt Care Lvl 3
[2020-09-24] MEDS: METOPROLOL TARTRATE 1 MG/ML VIAL IV PRN ×2 (06:17→09:53)
--- NOTE | 2020-09-24 07:46 | XRay Report ---
XR chest 1V portable HISTORY: SEPSIS COMPARISON: Chest CTA 09/24/2020. FINDINGS: No pneumothorax. The cardiac silhouette is moderately enlarged. There is perihilar intersti tial/vascular thickening consistent with mild pulmonary edema. There are trace bilateral pleural effu sions. IMPRESSION: Cardiomegaly with mild interstitial pulmonary edema and trace bilateral pleural effusions. ACT 112: Negative or not required by law. Electronically signed by: Waylon Hancock M.D. 09/24/2020 7:45 AM
--- NOTE | 2020-09-24 08:37 | Hospitalist Progress Note ---
Date of Service September 24, 2020 Assessment & Plan (1) LBBB (left bundle branch block): 40 yo M Hx HTN admitted for ACS rule out, elevated LFTs, and pulmonary mass. Neuro - - No present concerns. Cardiac - LBBB, elevated troponin, cardiomegaly: - Presents without chest pain or pressure, but with abdominal pain with associated SOB and diaphoresis. - Elevated troponin to 0.267 -> 0.286 in ER. LBBB noted on EKG, no baseline to compare. - CXR and CTA Chest show cardiomegaly[place] [address]. - Tick-borne pathogen labwork ordered, CMV, EBV, HIV. - TSH normal. - UDS pending. - Hgb A1c and lipid panel ordered for AM. - Heparin gtt started, aspirin 325mg given. - Suspect structural heart disease such as dilated cardiomyopathy as compared to ischemia. No current symptoms. Will get Echocardiogram and Cardiology consult in AM. HTN: - BP on arrival of 170/110. Received labetalol 10mg IV x1 with decrease in BP to 130s/90s. - Lopressor 5mg IV q4h prn BP >180/100. Will increase beta tunde as needed. - Defer starting PO daily medications to day team. Respiratory - Pulmonary mass: - Noted on imaging to have 3.3x4cm subpleural mass within left lower lobe with central area of decrease attenuation; differentials include neoplastic or infectious process, pulmonary infarct. - No TB or tick exposures to patient's knowledge. HIV, CMV, EBV, tick serologies pending. - Consider pulm consult. Possible with mediastinal lymphadenopathy that this is neoplastic as opposed to viral in etiology if serologies negative. Anasarca: - Noted to have pitting edema on exam, anasarca on imaging, elevated pro-BNP. - Despite fluid overload patient is saturating well on room air. Supplemental O2 as needed. - Lasix 20mg IV x1 given as patient is diuretic naive. - Further diurese as needed based on clinical exam. GI - Elevated LFTs: - Admission labwork shows mildly elevated LFTs, TBili, INR. - CTAP did not note hepatic steatosis, hepatitis. - Did note anasarca and diffuse mesenteric edema. - Suspect elevated LFTs due to hepatic congestion from fluid overload. Other differentials include NAFLD, viral hepatitis. - Daily LFTs, and evaluation as above. RENAL/LYTES - Hypocalcemia: - ICal 0.98 in ER; given calcium gluconate 1g IV. - Repeat BMP later today. - - No present concerns. ENDO - - Normal TSH. - A1c ordered. HEME - - Elevated INR noted. - Suspect liver cause, see above. ID - - HIV, CMV, EBV, Lyme, Anaplasma, Babesia, Ehrlichia labwork ordered. INTEGUMENTARY - - No present concerns. DVT PROPHYLAXIS - - Heparin gtt as above for ACS rule out. Code Status: FULL CODE Diet: NPO Dispo: PCU (2) Elevated troponin: (3) Cardiomegaly: (4) Elevated LFTs: (5) Hypocalcemia: (6) Lung mass: Admission and Anticipated Discharge Date Admission Date: September 24, 2020 Results & Data Results & Data ([facility]) Vital Signs (Past 12 Hours) Vital Signs Temp Pulse Resp BP BP Pulse Ox 09/24/20 06:30 21 158/121 H 09/24/20 06:17 92 H 142/100 H 09/24/20 06:10 142/100 H 09/24/20 06:00 103 H 19 09/24/20 05:30 95 H 22 156/118 H 96 09/24/20 05:00 99 H 20 148/118 H 09/24/20 04:30 97 H 22 146/124 H 09/24/20 04:00 93 H 22 146/115 H 09/24/20 03:30 94 H 20 139/98 98 09/24/20 03:00 91 H 18 140/108 H 97 09/24/20 02:30 108 H 13 154/117 H 99 09/24/20 02:28 99 09/24/20 02:00 111 H 16 162/124 H 96 09/24/20 01:02 36.4 C L 121 H 20 171/118 H 100
[2020-09-24] MEDS ORDERED: ASPIRIN 81 MG CHEW PO SCH (09:00)
[2020-09-24] MEDS ORDERED: MAGNESIUM SULFATE / D5W 1 GM/100 ML BAG IV ONE (10:00)
[2020-09-24] MEDS ORDERED: SPIRONOLACTONE 12.5 MG TAB PO ONE (10:44)
--- NOTE | 2020-09-24 11:24 | Cardiology Consultation ---
Date of Consultation September 24, 2020 Assessment & Plan (1) Acute systolic CHF (congestive heart failure): (2) Cardiomyopathy: (3) LBBB (left bundle branch block): (4) Elevated LFTs: (5) Elevated troponin: (6) Ventricular tachycardia: (7) Hypertension: ASSESSMENT/PLAN: 1. Acute systolic CHF: He is hypervolemic and has severely reduced LV systolic function. Elevated transaminase levels possibly due to hepatic congestion. Recommend Lasix 40 mg IV twice daily. Strict I&Os. Daily weights. Low-sodium diet, less than 2000 mg daily. Recommend heart failure program referral. Diagnosis discussed with him in detail. 2. Cardiomyopathy: Severely reduced LV systolic function. Etiology not known. Recommend ischemic evaluation. Cardiac catheterization discussed with him but he declined. Discussed the fact that if he has severe CAD and revascularization not perform, he may not improve. We discussed the fact that his condition could be fatal. He expressed understanding but once again declines. Recommend secondary workup. TSH normal. Check Rui level, SPEP, UPEP, ferritin, transferrin saturation. If high risk, consider HIV labs. Myocarditis a possibility as well. After diuresis, initiate carvedilol 3.125 mg twice daily. Spironolactone 25 mg p.o. daily. Entresto low-dose later this hospitalization. If no improvement with medical therapy over time, would qualify for biventricular ICD which may improve his overall LV systolic function given LBBB greater than 150 milliseconds. If he becomes hypotensive or show signs of end- organ damage from poor perfusion, inotropic therapy may be necessary, but not indicated at this time. 3. LBBB: Newly diagnosed. There was no prior ECG available for review. Plan as above. 4. Elevated transaminase levels: Probably due to hepatic congestion. Diurese as above. Monitor levels. 5. Elevated troponin: He did not present with acute coronary syndrome. Likely due to his CHF and cardiomyopathy. Recommended cardiac catheterization as above but he declined. 6. Hypertension: Blood pressure elevated. Blood pressure should improve with diuresis, beta-tunde, and other heart failure therapies. 7. Nonsustained ventricular tachycardia: Beta-tunde as above. Continue telemetry. 8. Lung mass: As per primary service. Pulmonology consultation is pending. Disposition: Cardiology will continue to follow along. I will be away from the hospital for the next several days. Dr. Mendez will be available to assist in his care. Heart failure program on discharge. Discussed with him that he will likely be here for several days. He stated that he does not wish to be here very long but appeared willing to remain hospitalized for now. Discussed the fact that his heart is very sick and that he could from this illness. He expressed understanding. Plan of care discussed with primary hospitalist service (Dr. Cam) who planned on placing lab orders and ordering medications as discussed. Highly complex medical issues. Thank you for allowing me to participate in the care of your patient. Please call for any other questions or concerns. Sincerely, Deandre Tapia M.D. History of Present Illness Reason for Consultation: [facility] Requesting Physician: Opal Medina Attending Physician: Bayron Cam, History of Present Illness Mr. Galan is a pleasant 40-year-old gentleman with a history significant for hypertension who was admitted on 09/24/2020 with abdominal pain, nausea, vomiting, diaphoresis, diarrhea, and shortness of breath. He states he was diagnosed with hypertension near the age of 12 or 13. He recalls being on medication in the past but has not been followed by PCP for over 10 years. He reports feeling well up until approximately 2 weeks ago. He then developed nausea, vomiting, dry heaves, diarrhea, weakness, dyspnea, orthopnea, and oc casional PND. He has been propping his head up to breathe at night. He has noted swelling in his lower extremities over the past week or so. He does not maintain a low-sodium diet. He denies chest pain, fevers, syncope, near- syncope, palpitations. His abdominal pain is in the periumbilical area and has been intermittent and mild. He denies any significant pain currently. In the emergency department ECG demonstrated left bundle branch block. His troponin was also elevated, peaking at 0.286. ProBNP was 31504 and transaminase levels were mildly elevated. He received intravenous Lasix 20 mg IV x1 and reports having increased urine output following diuretic. Unfortunately, fluid balance is not complete. He denies any history of cardiac issue. He denies any recent sick contact. CT scan on presentation also demonstrated pulmonary mass. He believes that he has been gaining weight, but does not weigh himself on a daily basis. Review of systems: As above. Review of systems otherwise negative/unremarkable. Family history: Mother has hypertension. Paternal grandfather at the age of 32 with presumed [place]. Social history: He denies tobacco, alcohol, or drug abuse. He lives at home with his brother. He has not been . No children. One sibling. 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 He is unaccompanied today. Allergies Allergy/AdvReac Type Severity Reaction Status Date / Time mold Allergy Intermediate Difficulty Verified 09/24/20 02:22 Breathing pollen extracts Allergy Intermediate Difficulty Verified 09/24/20 02:22 Breathing Home Medications Medication Instructions Recorded Confirmed Type No Known Home Medications 09/24/20 09/24/20 History Patient History Medical History High blood pressure Surgical History History of appendectomy Social History Smoking Status: Never smoker Second Hand Exposure: No; Hx Alcohol Use: No Hx Substance Use: No Preferred Language: Citizen Of [place] Communication Ability: Effective An/Ssn 2 4 Operator Required: No Beliefs That Will Affect Care: None Current Living Situation: Family Feels Safe at Home: Yes Assistive Devices: None Physical Exam Physical Exam: Gen.: No acute distress. Alert and oriented. HEENT: Anicteric sclera. Neck: Thick neck. No bruits. Normal carotid upstrokes bilaterally. Cardiac: PMI was nonpalpable. No ventricular heave. Regula. Normal S1-S2. No murmurs, rubs, or gallops. Pulmonary: Mild bibasilar rales. Abdomen: Soft, nontender, nondistended, with normoactive bowel sounds. No bruits noted. Extremities: 2+ radial pulses bilaterally. 2+ posterior tibialis pulses bilaterally. 1-2+ bilateral lower extremity edema to the hips. No cyanosis. Psychiatric: Affect appears appropriate. Results & Data ([facility]) Vital Signs (Past 12 Hours) Vital Signs Temp Pulse Pulse Resp BP BP Pulse Ox 09/24/20 10:12 90 16 138/103 H 09/24/20 09:55 36.8 C 99 H 16 137/105 H 95 09/24/20 09:53 99 H 09/24/20 06:30 21 158/121 H 09/24/20 06:17 92 H 142/100 H 09/24/20 06:10 142/100 H 09/24/20 06:00 103 H 19 09/24/20 05:30 95 H 22 156/118 H 96 09/24/20 05:00 99 H 20 148/118 H 09/24/20 04:30 97 H 22 146/124 H 09/24/20 04:00 93 H 22 146/115 H 09/24/20 03:30 94 H 20 139/98 98 09/24/20 03:00 91 H 18 140/108 H 97 09/24/20 02:30 108 H 13 154/117 H 99 09/24/20 02:28 99 09/24/20 02:00 111 H 16 162/124 H 96 09/24/20 01:02 36.4 C L 121 H 20 171/118 H 100 Intake & Output 09/22/20 09/23/20 09/24/20 09/25/20 06:59 06:59 06:59 06:59 Intake Total 1060 / 1060 Balance 1060 / 1060 Weight 268 lb 1.314 oz 267 lb 13.786 oz Laboratory Results Laboratory Results - last 24 hr 09/24/20 09/24/20 09/24/20 01:25 01:33 01:35 WBC 9.85 RBC 5.78 Hgb 17.2 POC Hgb 18.4 H Hct 51.4 POC Hct 54 H MCV 88.9 MCH 29.8 MCHC 33.5 RDW Std Deviation 46.6 H RDW Coeff of Camryn 14.4 Plt Count 364 MPV 9.5 Immature Gran % (Auto) 0.3 Neut % (Auto) 72.1 Lymph % (Auto) 21.6 [place] % (Auto) 5.2 Eos % (Auto) 0.4 Baso % (Auto) 0.4 Neut # (Auto) 7.10 H Lymph # (Auto) 2.13 [place] # (Auto) 0.51 Eos # (Auto) 0.04 Baso # (Auto) 0.04 Immature Gran # (Auto) 0.03 H PT INR APTT PTT Ratio POC Sodium 136 Sodium POC Potassium 4.1 Potassium POC Chloride 99 L Chloride Carbon Dioxide POC Total CO2 21 L Anion Gap POC Anion Gap 20.0 POC BUN 21 H BUN Creatinine POC Creatinine 1.3 Est Cr Clr Drug Dosing Est GFR ( Amer) Est GFR (Non-Af Amer) BUN/Creatinine Ratio Glucose POC Glucose (other) 104 H Lactate Calcium POC Ioniz Calcium Maykel 0.98 L Magnesium Iron Transferrin Transferrin % Sat Ferritin Total Bilirubin AST ALT Alkaline Phosphatase Troponin I NT-Pro-B Natriuret Pep Total Protein Albumin Globulin Albumin/Globulin Ratio Angiotensin Convert Enz Procalcitonin TSH Urine Color Urine Appearance Urine pH Ur Specific [place] Urine Protein Urine Glucose (UA) Urine Ketones Urine Blood Urine Nitrite Urine Bilirubin Urine Urobilinogen Ur Leukocyte Esterase Urine WBC (Auto) Urine RBC (Auto) U Hyaline Cast (Auto) U Epithel Cells (Auto) Urine Bacteria (Auto) Urine Opiates Screen Ur Methadone, Qual Urine Barbiturates Ur Phencyclidine (PCP) U Amphetamin/Meth Scrn MDMA (Ecstasy) Screen U Benzodiazepines Scrn Ur Cocaine Metabolite U Marijuana (THC) Screen Anaplasma Smear See Comment A. phagocytophilum DNA Babesia microti IgG Ab Babesia microti IgM Ab Babesia Interpretation Lyme Disease IgG Ab Lyme Disease IgM Ab COVID-19 Eval Order SARS-CoV-2 (PCR) CMV IgM Ab CMV IgG Ab/TORCH E. chaffeensis IgG Ab E. chaffeensis IgM Ab E. chaffeensis Interp E. chaffeensis Comment EBV Source EBV DNA, Quant EBV DNA (PCR) Hepatitis A IgM Ab Hep Bs Antigen Neg Hep B Core IgM Ab Hepatitis C Antibody Neg HIV-1 RNA copies/mL HIV-1 RNA logcopies/mL 09/24/20 09/24/20 09/24/20 01:35 01:35 01:35 WBC RBC Hgb POC Hgb Hct POC Hct MCV MCH MCHC RDW Std Deviation RDW Coeff of Camryn Plt Count MPV Immature Gran % (Auto) Neut % (Auto) Lymph % (Auto) [place] % (Auto) Eos % (Auto) Baso % (Auto) Neut # (Auto) Lymph # (Auto) [place] # (Auto) Eos # (Auto) Baso # (Auto) Immature Gran # (Auto) PT 14.0 H INR 1.4 H APTT 26.3 PTT Ratio 1.0 POC Sodium Sodium 133 L POC Potassium Potassium 4.1 POC Chloride Chloride 102 Carbon Dioxide 23 POC Total CO2 Anion Gap 8.0 POC Anion Gap POC BUN BUN 20 H Creatinine 1.33 POC Creatinine Est Cr Clr Drug Dosing 97.4 Est GFR ( Amer) 75.9 Est GFR (Non-Af Amer) 65.5 BUN/Creatinine Ratio 14.9 Glucose 98 POC Glucose (other) Lactate Calcium 9.1 POC Ioniz Calcium Maykel Magnesium 1.9 Iron Transferrin Transferrin % Sat Ferritin Total Bilirubin 1.8 H AST 71 H ALT 271 H Alkaline Phosphatase 64 Troponin I 0.267 H* NT-Pro-B Natriuret Pep 95713 H Total Protein 7.1 Albumin 3.7 Globulin 3.4 Albumin/Globulin Ratio 1.1 Angiotensin Convert Enz Procalcitonin < 0.05 TSH Urine Color Urine Appearance Urine pH Ur Specific [place] Urine Protein Urine Glucose (UA) Urine Ketones Urine Blood Urine Nitrite Urine Bilirubin Urine Urobilinogen Ur Leukocyte Esterase Urine WBC (Auto) Urine RBC (Auto) U Hyaline Cast (Auto) U Epithel Cells (Auto) Urine Bacteria (Auto) Urine Opiates Screen Ur Methadone, Qual Urine Barbiturates Ur Phencyclidine (PCP) U Amphetamin/Meth Scrn MDMA (Ecstasy) Screen U Benzodiazepines Scrn Ur Cocaine Metabolite U Marijuana (THC) Screen Anaplasma Smear A. phagocytophilum DNA Babesia microti IgG Ab Babesia microti IgM Ab Babesia Interpretation Lyme Disease IgG Ab Lyme Disease IgM Ab COVID-19 Eval Order SARS-CoV-2 (PCR) CMV IgM Ab CMV IgG Ab/TORCH E. chaffeensis IgG Ab E. chaffeensis IgM Ab E. chaffeensis Interp E. chaffeensis Comment EBV Source EBV DNA, Quant EBV DNA (PCR) Hepatitis A IgM Ab Hep Bs Antigen Hep B Core IgM Ab Hepatitis C Antibody HIV-1 RNA copies/mL HIV-1 RNA logcopies/mL 09/24/20 09/24/20 09/24/20 01:35 01:35 01:35 WBC RBC Hgb POC Hgb Hct POC Hct MCV MCH MCHC RDW Std Deviation RDW Coeff of Camryn Plt Count MPV Immature Gran % (Auto) Neut % (Auto) Lymph % (Auto) [place] % (Auto) Eos % (Auto) Baso % (Auto) Neut # (Auto) Lymph # (Auto) [place] # (Auto) Eos # (Auto) Baso # (Auto) Immature Gran # (Auto) PT INR APTT PTT Ratio POC Sodium Sodium POC Potassium Potassium POC Chloride Chloride Carbon Dioxide POC Total CO2 Anion Gap POC Anion Gap POC BUN BUN Creatinine POC Creatinine Est Cr Clr Drug Dosing Est GFR ( Amer) Est GFR (Non-Af Amer) BUN/Creatinine Ratio Glucose POC Glucose (other) Lactate Calcium POC Ioniz Calcium Maykel Magnesium Iron Transferrin Transferrin % Sat Ferritin Total Bilirubin AST ALT Alkaline Phosphatase Troponin I NT-Pro-B Natriuret Pep Total Protein Albumin Globulin Albumin/Globulin Ratio Angiotensin Convert Enz Procalcitonin TSH Urine Color Urine Appearance Urine pH Ur Specific [place] Urine Protein Urine Glucose (UA) Urine Ketones Urine Blood Urine Nitrite Urine Bilirubin Urine Urobilinogen Ur Leukocyte Esterase Urine WBC (Auto) Urine RBC (Auto) U Hyaline Cast (Auto) U Epithel Cells (Auto) Urine Bacteria (Auto) Urine Opiates Screen Ur Methadone, Qual Urine Barbiturates Ur Phencyclidine (PCP) U Amphetamin/Meth Scrn MDMA (Ecstasy) Screen U Benzodiazepines Scrn Ur Cocaine Metabolite U Marijuana (THC) Screen Anaplasma Smear A. phagocytophilum DNA Babesia microti IgG Ab Babesia microti IgM Ab Babesia Interpretation Lyme Disease IgG Ab Lyme Disease IgM Ab COVID-19 Eval Order Covid19 at [facility] SARS-CoV-2 (PCR) NEGATIVE CMV IgM Ab CMV IgG Ab/TORCH E. chaffeensis IgG Ab E. chaffeensis IgM Ab E. chaffeensis Interp E. chaffeensis Comment EBV Source EBV DNA, Quant EBV DNA (PCR) Hepatitis A IgM Ab Pending Hep Bs Antigen Hep B Core IgM Ab Pending Hepatitis C Antibody HIV-1 RNA copies/mL HIV-1 RNA logcopies/mL 09/24/20 09/24/20 09/24/20 01:35 02:21 03:09 WBC RBC Hgb POC Hgb Hct POC Hct MCV MCH MCHC RDW Std Deviation RDW Coeff of Camryn Plt Count MPV Immature Gran % (Auto) Neut % (Auto) Lymph % (Auto) [place] % (Auto) Eos % (Auto) Baso % (Auto) Neut # (Auto) Lymph # (Auto) [place] # (Auto) Eos # (Auto) Baso # (Auto) Immature Gran # (Auto) PT INR APTT PTT Ratio POC Sodium Sodium POC Potassium Potassium POC Chloride Chloride Carbon Dioxide POC Total CO2 Anion Gap POC Anion Gap POC BUN BUN Creatinine POC Creatinine Est Cr Clr Drug Dosing Est GFR ( Amer) Est GFR (Non-Af Amer) BUN/Creatinine Ratio Glucose POC Glucose (other) Lactate 2.5 H* Calcium POC Ioniz Calcium Maykel Magnesium Iron Transferrin Transferrin % Sat Ferritin 232.9 Total Bilirubin AST ALT Alkaline Phosphatase Troponin I 0.286 H* NT-Pro-B Natriuret Pep Total Protein Albumin Globulin Albumin/Globulin Ratio Angiotensin Convert Enz Procalcitonin TSH 3.560 Urine Color Urine Appearance Urine pH Ur Specific [place] Urine Protein Urine Glucose (UA) Urine Ketones Urine Blood Urine Nitrite Urine Bilirubin Urine Urobilinogen Ur Leukocyte Esterase Urine WBC (Auto) Urine RBC (Auto) U Hyaline Cast (Auto) U Epithel Cells (Auto) Urine Bacteria (Auto) Urine Opiates Screen Ur Methadone, Qual Urine Barbiturates Ur Phencyclidine (PCP) U Amphetamin/Meth Scrn MDMA (Ecstasy) Screen U Benzodiazepines Scrn Ur Cocaine Metabolite U Marijuana (THC) Screen Anaplasma Smear A. phagocytophilum DNA Pending Babesia microti IgG Ab Babesia microti IgM Ab Babesia Interpretation Lyme Disease IgG Ab Lyme Disease IgM Ab COVID-19 Eval Order SARS-CoV-2 (PCR) CMV IgM Ab CMV IgG Ab/TORCH E. chaffeensis IgG Ab E. chaffeensis IgM Ab E. chaffeensis Interp E. chaffeensis Comment EBV Source EBV DNA, Quant EBV DNA (PCR) Hepatitis A IgM Ab Hep Bs Antigen Hep B Core IgM Ab Hepatitis C Antibody HIV-1 RNA copies/mL HIV-1 RNA logcopies/mL 09/24/20 09/24/20 09/24/20 03:09 03:09 03:20 WBC RBC Hgb POC Hgb Hct POC Hct MCV MCH MCHC RDW Std Deviation RDW Coeff of Camryn Plt Count MPV Immature Gran % (Auto) Neut % (Auto) Lymph % (Auto) [place] % (Auto) Eos % (Auto) Baso % (Auto) Neut # (Auto) Lymph # (Auto) [place] # (Auto) Eos # (Auto) Baso # (Auto) Immature Gran # (Auto) PT INR APTT PTT Ratio POC Sodium Sodium POC Potassium Potassium POC Chloride Chloride Carbon Dioxide POC Total CO2 Anion Gap POC Anion Gap POC BUN BUN Creatinine POC Creatinine Est Cr Clr Drug Dosing Est GFR ( Amer) Est GFR (Non-Af Amer) BUN/Creatinine Ratio Glucose POC Glucose (other) Lactate Calcium POC Ioniz Calcium Maykel Magnesium Iron Transferrin Transferrin % Sat Ferritin Total Bilirubin AST ALT Alkaline Phosphatase Troponin I NT-Pro-B Natriuret Pep Total Protein Albumin Globulin Albumin/Globulin Ratio Angiotensin Convert Enz Pending Procalcitonin TSH Urine Color Yellow Urine Appearance Clear Urine pH 5.5 Ur Specific [place] > 1.045 H Urine Protein 1+ H Urine Glucose (UA) Negative Urine Ketones Negative Urine Blood Negative Urine Nitrite Negative Urine Bilirubin Negative Urine Urobilinogen Negative Ur Leukocyte Esterase Negative Urine WBC (Auto) 1-5 Urine RBC (Auto) 0-4 U Hyaline Cast (Auto) 0 U Epithel Cells (Auto) 5-10 H Urine Bacteria (Auto) Negative Urine Opiates Screen Ur Methadone, Qual Urine Barbiturates Ur Phencyclidine (PCP) U Amphetamin/Meth Scrn MDMA (Ecstasy) Screen U Benzodiazepines Scrn Ur Cocaine Metabolite U Marijuana (THC) Screen Anaplasma Smear A. phagocytophilum DNA Babesia microti IgG Ab Babesia microti IgM Ab Babesia Interpretation Lyme Disease IgG Ab Negative Lyme Disease IgM Ab Negative COVID-19 Eval Order SARS-CoV-2 (PCR) CMV IgM Ab CMV IgG Ab/TORCH E. chaffeensis IgG Ab E. chaffeensis IgM Ab E. chaffeensis Interp E. chaffeensis Comment EBV Source EBV DNA, Quant EBV DNA (PCR) Hepatitis A IgM Ab Hep Bs Antigen Hep B Core IgM Ab Hepatitis C Antibody HIV-1 RNA copies/mL HIV-1 RNA logcopies/mL 09/24/20 09/24/20 09/24/20 03:20 04:18 05:04 WBC RBC Hgb POC Hgb Hct POC Hct MCV MCH MCHC RDW Std Deviation RDW Coeff of Camryn Plt Count MPV Immature Gran % (Auto) Neut % (Auto) Lymph % (Auto) [place] % (Auto) Eos % (Auto) Baso % (Auto) Neut # (Auto) Lymph # (Auto) [place] # (Auto) Eos # (Auto) Baso # (Auto) Immature Gran # (Auto) PT INR APTT PTT Ratio POC Sodium Sodium POC Potassium Potassium POC Chloride Chloride Carbon Dioxide POC Total CO2 Anion Gap POC Anion Gap POC BUN BUN Creatinine POC Creatinine Est Cr Clr Drug Dosing Est GFR ( Amer) Est GFR (Non-Af Amer) BUN/Creatinine Ratio Glucose POC Glucose (other) Lactate 1.9 Calcium POC Ioniz Calcium Maykel Magnesium Iron Transferrin Transferrin % Sat Ferritin Total Bilirubin AST ALT Alkaline Phosphatase Troponin I NT-Pro-B Natriuret Pep Total Protein Albumin Globulin Albumin/Globulin Ratio Angiotensin Convert Enz Procalcitonin TSH Urine Color Urine Appearance Urine pH Ur Specific [place] Urine Protein Urine Glucose (UA) Urine Ketones Urine Blood Urine Nitrite Urine Bilirubin Urine Urobilinogen Ur Leukocyte Esterase Urine WBC (Auto) Urine RBC (Auto) U Hyaline Cast (Auto) U Epithel Cells (Auto) Urine Bacteria (Auto) Urine Opiates Screen Neg Ur Methadone, Qual Neg Urine Barbiturates Neg Ur Phencyclidine (PCP) Neg U Amphetamin/Meth Scrn Neg MDMA (Ecstasy) Screen Neg U Benzodiazepines Scrn Neg Ur Cocaine Metabolite Neg U Marijuana (THC) Screen Neg Anaplasma Smear A. phagocytophilum DNA Babesia microti IgG Ab Pending Babesia microti IgM Ab Pending Babesia Interpretation Pending Lyme Disease IgG Ab Lyme Disease IgM Ab COVID-19 Eval Order SARS-CoV-2 (PCR) CMV IgM Ab Pending CMV IgG Ab/TORCH Pending E. chaffeensis IgG Ab Pending E. chaffeensis IgM Ab Pending E. chaffeensis Interp Pending E. chaffeensis Comment Pending EBV Source Pending EBV DNA, Quant Pending EBV DNA (PCR) Pending Hepatitis A IgM Ab Hep Bs Antigen Hep B Core IgM Ab Hepatitis C Antibody HIV-1 RNA copies/mL Pending HIV-1 RNA logcopies/mL Pending 09/24/20 09/24/20 09:23 09:23 WBC RBC Hgb POC Hgb Hct POC Hct MCV MCH MCHC RDW Std Deviation RDW Coeff of Camryn Plt Count MPV Immature Gran % (Auto) Neut % (Auto) Lymph % (Auto) [place] % (Auto) Eos % (Auto) Baso % (Auto) Neut # (Auto) Lymph # (Auto) [place] # (Auto) Eos # (Auto) Baso # (Auto) Immature Gran # (Auto) PT INR APTT PTT Ratio POC Sodium Sodium POC Potassium Potassium POC Chloride Chloride Carbon Dioxide POC Total CO2 Anion Gap POC Anion Gap POC BUN BUN Creatinine POC Creatinine Est Cr Clr Drug Dosing Est GFR ( Amer) Est GFR (Non-Af Amer) BUN/Creatinine Ratio Glucose POC Glucose (other) Lactate Calcium POC Ioniz Calcium Maykel Magnesium Iron Pending Transferrin Pending Transferrin % Sat Pending Ferritin Pending Total Bilirubin AST ALT Alkaline Phosphatase Troponin I 0.255 H* NT-Pro-B Natriuret Pep Total Protein Albumin Globulin Albumin/Globulin Ratio Angiotensin Convert Enz Procalcitonin TSH Urine Color Urine Appearance Urine pH Ur Specific [place] Urine Protein Urine Glucose (UA) Urine Ketones Urine Blood Urine Nitrite Urine Bilirubin Urine Urobilinogen Ur Leukocyte Esterase Urine WBC (Auto) Urine RBC (Auto) U Hyaline Cast (Auto) U Epithel Cells (Auto) Urine Bacteria (Auto) Urine Opiates Screen Ur Methadone, Qual Urine Barbiturates Ur Phencyclidine (PCP) U Amphetamin/Meth Scrn MDMA (Ecstasy) Screen U Benzodiazepines Scrn Ur Cocaine Metabolite U Marijuana (THC) Screen Anaplasma Smear A. phagocytophilum DNA Babesia microti IgG Ab Babesia microti IgM Ab Babesia Interpretation Lyme Disease IgG Ab Lyme Disease IgM Ab COVID-19 Eval Order SARS-CoV-2 (PCR) CMV IgM Ab CMV IgG Ab/TORCH E. chaffeensis IgG Ab E. chaffeensis IgM Ab E. chaffeensis Interp E. chaffeensis Comment EBV Source EBV DNA, Quant EBV DNA (PCR) Hepatitis A IgM Ab Hep Bs Antigen Hep B Core IgM Ab Hepatitis C Antibody HIV-1 RNA copies/mL HIV-1 RNA logcopies/mL Diagnostic Findings Echocardiogram 09/24/2020 preliminary review: Severely reduced LV systolic function with global LV hypokinesis. No severe valvular stenosis or regurgitation. Formal review to follow. Telemetry personally reviewed: Sinus rhythm. Brief episodes of nonsustained ventricular tachycardia. ECGs personally reviewed: ECG 09/24/2020 at 1:33 a.m.: Sinus tachycardia with fusion complex. 112 beats per minute. LBBB. ECG 09/24/2020 at 2:34 a.m.: Sinus rhythm 98 beats per minute. LBBB. CTA chest 09/24/2020: No aortic dissection. Pericardial effusion. Mediastinal lymphadenopathy. 3.3 x 4 cm subpleural mass left lower lobe per Radiology. CT abdomen/pelvis 09/24/2020: Mild ascites, anasarca and diffuse mesenteric edema. Large left inguinal hernia. Medications Administered Current Inpatient Medications Aspirin (Aspirin 81 Mg Ectab) 81 mg PO QAM [facility] Stop: 10/24/20 10:44 Last Admin: 09/24/20 11:36 Dose: 81 mg Documented by: Atorvastatin Calcium (Atorvastatin 40 Mg Tab) 80 mg PO QAM [facility] Stop: 10/25/20 08:59 Carvedilol (Carvedilol 3.125 Mg Tab) 3.125 mg PO BID [facility] Stop: 10/24/20 10:44 Last Admin: 09/24/20 11:36 Dose: 3.125 mg Documented by: Heparin Sodium/Dextrose (Heparin Sodium/Dextrose) 25,000 units in 500 mls @ 34 mls/hr IV .[id number] [facility]; Protocol Stop: 10/24/20 04:28 Last Admin: 09/24/20 05:05 Dose: 1,700 units/hr, 34 mls/hr Documented by: Magnesium Sulfate/Dextrose (Magnesium Sulfate / D5w) 1 gm in 100 mls @ 50 mls/hr IV ONE ONE Stop: 09/24/20 11:59 Last Admin: 09/24/20 11:36 Dose: 50 mls/hr Documented by: Furosemide 40 mg/ Syringe 4 mls @ 4 mls/min IV [id number] [facility] Stop: 10/24/20 10:44 Last Admin: 09/24/20 11:36 Dose: 4 mls/min Documented by: Morphine Sulfate (Morphine Sulfate 2 Mg/Ml Carp) 2 mg IV Q30M PRN PRN Reason: Chest Pain Stop: 10/08/20 04:21 Nitroglycerin (Nitroglycerin Sl 0.4 Mg/Tab Tab) 0.4 mg SL UD PRN PRN Reason: Chest Pain Stop: 10/24/20 04:21 Ondansetron HCl (Ondansetron Inj 2 Mg/Ml 2 Ml Vial) 4 mg IV Q6H PRN PRN Reason: Nausea Stop: 10/24/20 04:21 PG Care Time/CCT Total # of Minutes Spent Total Time Spent with Patient: Total time spent is greater than 50% in coordination of care (as documented) at patient's floor/unit and/or counseling patient: Coding Level of Care Code 82133 Inpt Consult Level 5 Diagnoses Acute systolic CHF (congestive heart failure) I50.21 Cardiomyopathy I42.9 LBBB (left bundle branch block) I44.7 Elevated LFTs R79.89 Elevated troponin R77.8 Ventricular tachycardia I47.2 Hypertension I10
[2020-09-24] MEDS: ASPIRIN 81 MG ECTAB PO SCH (11:36)
[2020-09-24] MEDS: FUROSEMIDE 40 MG in SYRINGE 0 ML IV SCH ×2 (11:36→16:53)
[2020-09-24] MEDS: carvediloL 3.125 MG TAB PO SCH ×2 (11:36→20:53)
[2020-09-24 11:54] LABS: Ferritin 250.9 ng/ml (8-388)
[2020-09-24 12:55] LABS: BUN Creatinine Ratio 15.8 (10-20); Calcium 8.6 mg/dl (8.5-10.1); Creatinine Clr Calc Pharmacy 97.4 ml/min; Est GFR (African American) 75.9 ml/min; Est GFR (Non-African American) 65.5 ml/min; Potassium 3.6 mmol/L (3.5-5.1)
--- NOTE | 2020-09-24 13:17 | Medical Student Progress Note ---
Date of Service September 24, 2020 Assessment & Plan (1) Acute systolic CHF (congestive heart failure): 40 yo male with hx of allergies and hypertension admitted for evaluation and management of new acute systolic CHF. New acute systolic CHF - CXR- Cardiomegaly with mild interstitial pulmonary edema and trace bilateral pleural effusions - Chest CTA-mild four-chamber cardiomegaly. Mild pericardial effusion seen - Echo- severely reduced ejection fraction -20% (final report pending) - Etiology unclear but differential includes ischemia and myocarditis - LBBB on EKG, no comparison, concern recent LA causing conduction abnormality - BNP 75103, troponin trending 0.267, 0.286, 0.255 - Recommendations from cardiology appreciated - Heart failure program referral - Cardiac cath recommended, but patient declined at this time - Lasix 40 mg IV - Carvedilol 3.125 mg BID. - Spironolactone 25 mg p.o. QD - Begin Entresto later in hospitalization - If no improvement with medical therapy, can consider biventricular ICD - Inotropic therapy not indicated at this time Nonsustained ventricular tachycardia: - 7 beats - Carvedilol as above - Continue telemetry Transaminitis - cardiohepatic congestion from acute CHF - hepatic panel negative, no masses or lesions or signs or cirrhosis appreciated on CTAP - CMP tomorrow after diuresis Cardiac disease of unknown etiology - Hx of HTN from age 13 - Cardiology recommended secondary cardiac workup - TSH normal - Checking BERNABE level, SPEP, UPEP, ferritin, transferrin saturation, and HIV Hypertension - Secondary workup as above - Carvedilol, Lasix, and Spironolactone as above GI symptoms - Likely stemming from acute CHF with severely reduced EF resulting in diffuse edema and poor perfusion. - Abdominal/ pelvis CTA- anasarca and diffuse mesenteric edema - Albumin normal Hypocalcemia: - ICal 0.98 in ER; given calcium gluconate 1g IV. - Repeat BMP tomorrow Lung mass -Chest CTA- 3.3 x 4.0 cm subpleural mass within left lower lobe with central area of decrease attenuation which might represent neoplastic or infectious process - Pt previously lived in a moldy apartment, no smoking hx - Pulmonology consulted Dispo: tele Diet: heart healthy, low sodium DVT prophylaxis: heparin IV Code: Full code Admission and Anticipated Discharge Date Admission Date: September 24, 2020 Supervising Attestation I personally examined the patient and verified all smith points of history and exam, discussed case, and agree with decision making with Lina Chi. Seen in follow-up from early a.m. admission. Seems mostly fatigued, but no new acute complaints. In discussion of his situation, he expresses pretty good understanding of what is going on, does not want a heart cath donebut is not able to voice a very specific concern as to whymostly just "I do not want that procedure done" or "I do not want that done now" or similar. Case discussed with cardiology as well Vitals noted, in general he is very fatigued appearing but otherwise no distress. HEENT normocephalic atraumatic mucous membranes moist. Breathing unlabored no accessory muscle use good effort. Skin shows no rashes no pallor or icterus. Neuro shows no focal deficits. New onset CHF/systolic dilated cardiomyopathybiggest concern would be ischemic. He did have an abrupt worsening of his symptoms by history that is concerning for an LA a week or 2 prior to admission. At the same time certainly this could also be idiopathic/viral/other forms of cardiomyopathy. At any rate a heart cath would be quite helpful in discerning thisbut he does not want to undergo one at this time. Since he is not having a STEMI and does not have active ischemic symptoms, there is far less emergency to it however, we discussed the utility in this in helping to better care for himand discussed that it is possible that he is currently not wanting anything done just because he has had so much information, of such overwhelming gravity, jumped up on him all at once, that he is just having a hard time processing everything. We discussed that he is certainly free to make his own decisions, but that given the gravity/severity of the illness as we are talking about, it would be better if he was saying no to the heart cath for specific reasons rather than a vagal in. He understood this. In the meantime afterload reduction, beta-blockade, treat presumptively medically as though he has coronary disease. Lipids and A1c pending. Elevated LFTsstrongly suspect hepatic congestion/"nutmeg liver" from his CHF, although certainly could also have nonalcoholic fatty liver as well. Lung massanother unfortunate cause of concernfortunately he is never a smokerpulmonary input pending. Otherwise as above. Subjective No acute concerns. Endorses generalized fatigue. Noticed LE edema over the past 1-2 weeks. Denies chest pain, shortness of breath, abdominal pain, nausea/ vomiting. Denies any recent changes in weight. Reports being treated for hypertension at age 13, but as not seen a doctor for 10+ years. Reports a family history of cardiac disease, but he unsure of what. Paternal grandfather of an LA in his 30s. Denies personal or family history of liver disease. Denies any personal history of cardiac disease other than HTN. Denies history of tobacco or alcohol use. 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 Lives in a newly constructed apartment, but previously lived in an apartment with mold. Review of Systems Review of Systems: All systems reviewed & are unremarkable except as noted in HPI & below Physical Exam Physical Exam: GENERAL: nad HEENT: atraumatic, conjunctiva without injection b/l, external nose and pinna are normal CHEST: cta bilaterally with no wheezes, rhonchi or rales, normal respiratory effort CARDIOVASCULAR: heart regular rate and rhythm, no murmurs, gallops or rubs, 2+ lower extremity edema to knees ABD: nontender to palpation, nondistended, normal active bowel sounds NEURO: PERRLA, EOMI Results & Data ([facility]) Vital Signs (Past 12 Hours) Vital Signs Temp Pulse Pulse Resp BP BP Pulse Ox 09/24/20 11:58 36.9 C 88 16 145/117 H 95 09/24/20 10:12 90 16 138/103 H 09/24/20 09:55 36.8 C 99 H 16 137/105 H 95 09/24/20 09:53 99 H 09/24/20 06:30 21 158/121 H 09/24/20 06:17 92 H 142/100 H 09/24/20 06:10 142/100 H 09/24/20 06:00 103 H 19 09/24/20 05:30 95 H 22 156/118 H 96 09/24/20 05:00 99 H 20 148/118 H 09/24/20 04:30 97 H 22 146/124 H 09/24/20 04:00 93 H 22 146/115 H 09/24/20 03:30 94 H 20 139/98 98 09/24/20 03:00 91 H 18 140/108 H 97 09/24/20 02:30 108 H 13 154/117 H 99 09/24/20 02:28 99 09/24/20 02:00 111 H 16 162/124 H 96
[2020-09-24 13:44] LABS: Partial Thromboplastin Ratio 2.2
[2020-09-24 13:47] LABS: Partial Thromboplastin Time 58.1 Seconds (21.0-31.0)
--- NOTE | 2020-09-24 14:30 | Pulmonary Consultation ---
Date of Consultation September 24, 2020 Assessment & Plan (1) Abnormal chest CT: CT chest 09/24/2020 personally reviewed: Small bilateral pleural effusions, left lower lobe 4 x 3.3 cm opacity peripheral, supradiaphragmatic. Looks like reverse halo sign Mediastinal lymphadenopathy appreciated --Abnormal chest CT Left lower lobe 4 x 3.3 cm opacity Looks like Atoll sign Patient is totally asymptomatic It can be seen in variety of things including but not limited to infection, autoimmune as well as cryptogenic organizing pneumonia In autoimmune :- sarcoid, granulomatosis with polyangiitis, lipoid pneumonitis can present this way Infectious could include invasive pulmonary aspergillosis, pulmonary mucormycosis (patient is not that sick for him to have this disease.), Coccidioidomycosis Malignancy is also in the differential were very low on the list Procalcitonin negative Autoimmune work-up has been ordered, BERNABE level, ESR/CRP Repeat CT chest in 6-8 weeks --Mediastinal adenopathy I think this is reactive to the low ejection fraction that the patient has causing passive congestion of the lymph nodes --History of asthma Not on any inhalers at home Outpatient pulmonary follow-up for PFTs --Bilateral pleural effusion Small Continue with diuretics Plan: I would treat the patient with atypical antibiotic coverage like doxycycline for 5 days given the patient's prolonged QTC Doing bronchoscopy with BAL of the left lower lobe could be thought of which can be possibly done on Sunday the patient will still be in the hospital Patient will need a repeat CT chest without contrast to be done in approximately 8 weeks to see if there is any decrease in size or resolution of the left lower lobe opacity Patient CTA was negative for pulmonary embolism. The possibility of the opacity being a pulmonary infarct is very low. Case was discussed with Dr. Campoverde Please note the above document was generated using voice recognition software. It may contain grammatical, syntax or spelling errors.Any formal questions or co ncerns about the content, text or information contained within the body of this dictation should be directly addressed to the provider for clarification. (2) LAD (lymphadenopathy), mediastinal: (3) Pleural effusion: (4) Asthma: History of Present Illness Attending Physician: Bayron Cam DO History of Present Illness 40-year-old male with past medical history of hypertension diagnosed at the age of 13 not on any medication presented to the hospital with abdominal pain diarrhea nausea and vomiting. Patient had CT chest done in the ED and there was an abnormal finding Pulmonary were consulted for the same At the time of examination patient denies any issues when it comes to his breathing He denies any cough. No chest pain, no chest tightness. Denies any recent upper respiratory tract infection. Denies any history of trauma. No weight loss. He does complain of occasional night sweats which he relates to increased temperature. No headache, no blurry vision. No known history of contact with TB. No personal history of tuberculosis. No recent travel history. Patient does state he has history of asthma but is not on any inhalers at home Social history: Non-smoker, denies any illicit drug use, no alcohol use. 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 No birds or pets at home Allergies Allergy/AdvReac Type Severity Reaction Status Date / Time mold Allergy Intermediate Difficulty Verified 09/24/20 02:22 Breathing pollen extracts Allergy Intermediate Difficulty Verified 09/24/20 02:22 Breathing Home Medications Medication Instructions Recorded Confirmed Type No Known Home Medications 09/24/20 09/24/20 History Patient History Medical History (Updated 09/24/20 @ 17:54 by Harleen Stallings MD) Hypertension Surgical History History of appendectomy Social History Smoking Status: Never smoker Second Hand Exposure: No; Hx Alcohol Use: No Hx Substance Use: No Preferred Language: [place] Citizen Communication Ability: Effective 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 Required: No Beliefs That Will Affect Care: None Current Living Situation: Family Feels Safe at Home: Yes Assistive Devices: None Review of Systems Review of Systems: All systems reviewed & are unremarkable except as noted in HPI & below Physical Exam Physical Exam: Constitutional: No acute distress HEENT: EOMI, PERRLA Respiratory system: Decreased air entry bilaterally, no wheeze, no rhonchi, no crackles CVS: S1-S2 positive, no murmurs or gallops Abdomen: Soft, nontender, nondistended, positive bowel sounds x4, obese Extremities: +2 pulses bilaterally radialis/ dorsalis pedis, no cyanosis, +3 pitting edema bilateral lower extremity Neuro: Awake alert oriented x3 Psych: Normal mood and affect G/U: No Mendo[place] Skin: no rashes, warm and dry Lymphatic: no cervical or axillary lymphadenopathy Results & Data Results & Data ([facility]) Vital Signs (Past 12 Hours) Vital Signs Temp Pulse Pulse Resp BP BP Pulse Ox 09/24/20 11:58 36.9 C 88 16 145/117 H 95 09/24/20 10:12 90 16 138/103 H 09/24/20 09:55 36.8 C 99 H 16 137/105 H 95 09/24/20 09:53 99 H 09/24/20 06:30 21 158/121 H 09/24/20 06:17 92 H 142/100 H 09/24/20 06:10 142/100 H 09/24/20 06:00 103 H 19 09/24/20 05:30 95 H 22 156/118 H 96 09/24/20 05:00 99 H 20 148/118 H 09/24/20 04:30 97 H 22 146/124 H 09/24/20 04:00 93 H 22 146/115 H 09/24/20 03:30 94 H 20 139/98 98 09/24/20 03:00 91 H 18 140/108 H 97 09/24/20 02:30 108 H 13 154/117 H 99 09/24/20 02:28 99 09/24/20 01:35 09/24/20 12:15 PG Care Time/CCT Total # of Minutes Spent Total Time Spent with Patient: Total time spent is greater than 50% in coordination of care (as documented) at patient's floor/unit and/or counseling patient: Coding Level of Care Code 85966 Inpt Consult Level [address] R93.89 LAD (lymphadenopathy), mediastinal R59.0 Pleural effusion J90 Asthma J45.909
--- NOTE | 2020-09-24 14:49 | XCELERA ---
[id number]
[2020-09-24] MEDS: DOXYCYCLINE HYCLATE 100 MG CAP PO SCH (20:52)
[2020-09-24] MEDS ORDERED: METOPROLOL TARTRATE 25 MG TAB PO SCH (21:00)
[2020-09-25] MEDS ORDERED: POTASSIUM CHLORIDE CRTAB 20 MEQ TABCR PO STA ×2 (00:33→19:28)
[2020-09-25] MEDS ORDERED: FUROSEMIDE 20 MG in SYRINGE 0 ML IV ONE (02:30)
[2020-09-25] MEDS ORDERED: POTASSIUM CHLORIDE CRTAB 20 MEQ TABCR PO ONE (02:30)
[2020-09-25 05:07] LABS: Hepatitis A Antibody IgM NON-REACTIVE (NON-REACTIVE); Hepatitis B Core Antibody IgM NON-REACTIVE (NON-REACTIVE)
--- NOTE | 2020-09-25 06:18 | Electrocardiogram Report ---
Test Reason : Blood Pressure : / mmHG Vent. Rate : 112 BPM Atrial Rate : 112 BPM P-R Int : 150 ms QRS Dur : 164 ms QT Int : 342 ms P-R-T Axes : 078 049 -89 degrees QTc Int : 466 ms Sinus tachycardia with Fusion complexes Left atrial enlargement Left bundle branch block Abnormal ECG No previous ECGs available Confirmed by Kamran Tapia ([id number]) on 09/25/2020 6:17:49 AM Referred By: REFERRED SELF Confirmed By:Kamran Tapia
--- NOTE | 2020-09-25 06:18 | Electrocardiogram Report ---
Test Reason : Blood Pressure : / mmHG Vent. Rate : 098 BPM Atrial Rate : 098 BPM P-R Int : 172 ms QRS Dur : 170 ms QT Int : 442 ms P-R-T Axes : 071 031 225 degrees QTc Int : 564 ms Normal sinus rhythm Possible Left atrial enlargement Left bundle branch block Abnormal ECG When compared with ECG of 24-SEP-2020 01:33, Fusion complexes are no longer Present Confirmed by Kamran Tapia ([id number]) on 09/25/2020 6:18:03 AM Referred By: REFERRED SELF Confirmed By:Kamran Tapia
[2020-09-25 06:57] LABS: Basophils # (auto) 0.06 K/uL (0-0.2); Basophils % (auto) 0.5 %; Eosinophils # (auto) 0.05 K/uL (0-0.5); Eosinophils % (auto) 0.5 %; Hematocrit (blood only) 49.2 % (42-52); Hemoglobin 16.4 g/dL (14.0-18.0); Immature Granulocytes # (auto) 0.03 K/uL (0.00-0.02); Immature Granulocytes % (auto) 0.3 %; Lymphocytes # (auto) 2.07 K/uL (1.2-3.4); Lymphocytes % (auto) 18.9 %; Mean Corpuscular Hemoglobin 29.8 pg (25-34); Mean Corpuscular Hgb Conc 33.3 g/dL (32-36); Mean Corpuscular Volume 89.3 fL (80-100); Mean Platelet Volume 8.9 fL (7.4-10.4); Monocytes # (auto) 0.88 K/uL (0.11-0.59); Neutrophils # (auto) 7.87 K/uL (1.4-6.5); Neutrophils % (auto) 71.8 %; Platelet Count 370 K/uL (130-400); RDW Coefficient of Variation 14.5 % (11.5-14.5); RDW Standard Deviation 46.9 fL (36.4-46.3); Red Blood Count 5.51 M/uL (4.7-6.1); White Blood Count 10.96 K/uL (4.8-10.8)
[2020-09-25 07:24] LABS: BUN Creatinine Ratio 20.6 (10-20); Calcium 8.8 mg/dl (8.5-10.1); Creatinine Clr Calc Pharmacy 94.5 ml/min; Est GFR (African American) 73.9 ml/min; Est GFR (Non-African American) 63.7 ml/min; Potassium 3.6 mmol/L (3.5-5.1)
[2020-09-25 07:27] LABS: C Reactive Protein 0.87 mg/dl (0-0.29)
[2020-09-25 07:37] LABS: Partial Thromboplastin Ratio 2.2
[2020-09-25 07:39] LABS: Partial Thromboplastin Time 56.7 Seconds (21.0-31.0)
[2020-09-25 07:48] LABS: Estimated Average Glucose 123 mg/dl; Hemoglobin A1C 5.9 % (4.5-5.6)
[2020-09-25] MEDS ORDERED: FUROSEMIDE 60 MG in SYRINGE 0 ML IV ONE (08:00)
[2020-09-25] MEDS: carvediloL 3.125 MG TAB PO SCH ×2 (08:30→20:08)
[2020-09-25] MEDS: ASPIRIN 81 MG ECTAB PO SCH (08:30)
--- NOTE | 2020-09-25 08:30 | Hospitalist Progress Note ---
Date of Service September 25, 2020 Assessment & Plan (1) LBBB (left bundle branch block): (1) Acute systolic CHF (congestive heart failure): 40 yo male with hx of allergies and hypertension admitted for evaluation and management of new acute systolic CHF. New onset HFrEF - Chest CTA-mild four-chamber cardiomegaly. Mild pericardial effusion w/o tamponade - Echo- severely reduced ejection fraction 15-20% EF, global hypokinesis - LBBB on EKG, no comparison, concern recent WA causing conduction abnormality - 7 beat run nonsustained Vtach on 09/24, asymptomatic - troponins downtrended, BNP elevated 17k - Recommendations from cardiology appreciated - Heart failure program referral - Cardiac cath recommended, but patient declined at this time - Lasix 40 mg IV BID. one time 60 mg IV dose this AM instead of 40. - Carvedilol 3.125 mg BID. - Spironolactone 25 mg p.o. QD - Entresto to begin this PM. - If no improvement with medical therapy, can consider biventricular ICD Transaminitis, improving - cardiohepatic congestion from acute CHF - hepatic panel negative, no masses or lesions or signs or cirrhosis appreciated on CTAP - CMP tomorrow after diuresis Resistant HTN workup - Hx of HTN from age 13 - TSH normal, A1c 5.9 - Lipid:Cholesterol 69, LDL32, HDL 24 - BERNABE level, UPEP, SPEP pending - iron panel WNL - HIV pending - Anaplasma/Erlichiosis/EBV pending Coronary artery disease (suspected) - lipid panel WNL as above - ASA 81 daily GI symptoms - Likely stemming from acute CHF with severely reduced EF resulting in diffuse edema and poor perfusion. - Abdominal/ pelvis CTA- anasarca and diffuse mesenteric edema - Albumin normal - Giardia, Cdiff pending Hypocalcemia: - ICal 0.98 in ER; given calcium gluconate 1g IV. Lung mass - Chest CTA- 3.3 x 4.0 cm subpleural mass within left lower lobe with central area of decrease attenuation which might represent neoplastic or infectious process - Pt previously lived in a moldy apartment, no smoking hx - Pulmonology consulted: fungal labs pending, started on doxycycline BID for bacterial mass coverage. Discussed possibility of EBUS/Bronchoscopy on sunday for examination of mass Dispo: tele Diet: heart healthy, low sodium DVT prophylaxis: heparin drip Code: Full code (2) Elevated troponin: (3) Cardiomegaly: (4) Elevated LFTs: (5) Hypocalcemia: (6) Lung mass: Admission and Anticipated Discharge Date Admission Date: September 24, 2020 Supervising Physician Co-Signing Physician Notes I personally saw and examined the patient. I verified all smith points and agree with Dr Ana Campoverde, resident physician with the following exceptions and/or additions: Reports having a "reflux" episode 2 weeks prior. 1 week of progressive shortness of breath, weight gain and leg swelling. General anasarca improving but still a lot of swelling in his legs. O/E HS RRR, no murmurs, Chest - bibasal decreased breath sounds A/P Acute HFrEF - Hold off Entresto as Cr up this afternoon, can start tomorrow if Cr stabilizes. Continue carvedilol and current lasix dosing to aim 1L negative fluid balance daily. Highly recommended further ischemic workup with cardiac catheterization. He is yet to tell his mother and highly recommend he discusses his decisions with his family. Subjective no complaints chest pain, chest pressure, Sob overnight. no sx of hypertension.no trouble getting up and going to the bathroom. discussed pulmonology consult and EBUS/bronch on sunday. patient is hesitant to undergo anesthesia and be "under". discussed benefit of information + benefit of cardiac catheterization. Review of Systems Cardiovascular: + edema (improving); no chest pain, no radiating jaw, neck or arm pain, no dyspnea, no dyspnea on exertion, no paroxysmal nocturnal dyspnea, no palpitations, no lightheadedness and no calf pain Gastrointestinal: + diarrhea/loose stools; no abdominal pain, no early satiety, no nausea and no vomiting Physical Exam Physical Exam: Constitutional: obese, in no apparent distress, sitting comfortably in bed. Eyes: EOMI, pupils equal and reactive bilaterally, no scleral icterus Cardiac: RRR, no murmurs, gallops or rubs. Normal S1, S2 Pulm: CTA BL, no wheezes, rhonchi, crackles or rubs, moving air well throughout both lungs Abd: soft, nontender, nondistended, normal bowel sounds, no rebound or guarding Extremities: 2+ peripheral pulses, 3+ pitting edema to knees bilaterally Neuro: no focal deficits, moving all 4 limbs, A&Ox3 Results & Data Results & Data ([facility]) Vital Signs (Past 12 Hours) Vital Signs Temp Pulse Pulse Resp BP BP Pulse Ox 09/25/20 07:23 100 H 09/25/20 06:17 149/106 H 09/25/20 03:30 36.8 C 96 H 18 147/112 H 98 09/25/20 02:09 94 H 151/114 H 151/113 H 09/24/20 23:59 92 H 09/24/20 23:54 95 H 148/101 H 96 09/24/20 22:43 36.5 C 92 H 16 146/109 H 98 09/24/20 20:51 96 H 153/107 H Laboratory Results WBC 10.96 K/uL (4.8-10.8) H 09/25/20 06:30 RBC 5.51 M/uL (4.7-6.1) 09/25/20 06:30 Hgb 16.4 g/dL (14.0-18.0) 09/25/20 06:30 POC Hgb 18.4 g/dl (14.0-18.0) H 09/24/20 01:33 Hct 49.2 % (42-52) 09/25/20 06:30 POC Hct 54 % (42-52) H 09/24/20 01:33 MCV 89.3 fL (80-100) 09/25/20 06:30 MCH 29.8 pg (25-34) 09/25/20 06:30 MCHC 33.3 g/dL (32-36) 09/25/20 06:30 RDW Std Deviation 46.9 fL (36.4-46.3) H 09/25/20 06:30 RDW Coeff of Camryn 14.5 % (11.5-14.5) 09/25/20 06:30 Plt Count 370 K/uL (130-400) 09/25/20 06:30 MPV 8.9 fL (7.4-10.4) 09/25/20 06:30 Immature Gran % (Auto) 0.3 % 09/25/20 06:30 Neut % (Auto) 71.8 % 09/25/20 06:30 Lymph % (Auto) 18.9 % 09/25/20 06:30 [place] % (Auto) 8.0 % 09/25/20 06:30 Eos % (Auto) 0.5 % 09/25/20 06:30 Baso % (Auto) 0.5 % 09/25/20 06:30 Neut # (Auto) 7.87 K/uL (1.4-6.5) H 09/25/20 06:30 Lymph # (Auto) 2.07 K/uL (1.2-3.4) 09/25/20 06:30 [place] # (Auto) 0.88 K/uL (0.11-0.59) H 09/25/20 06:30 Eos # (Auto) 0.05 K/uL (0-0.5) 09/25/20 06:30 Baso # (Auto) 0.06 K/uL (0-0.2) 09/25/20 06:30 Immature Gran # (Auto) 0.03 K/uL (0.00-0.02) H 09/25/20 06:30 ESR 8 mm/hr (0-15) 09/25/20 06:30 PT 14.0 Seconds (9.0-12.0) H 09/24/20 01:35 INR 1.4 (0.9-1.1) H 09/24/20 01:35 APTT 56.7 Seconds (21.0-31.0) H* 09/25/20 06:30 PTT Ratio 2.2 09/25/20 06:30 POC Sodium 136 mmol/L (135-144) 09/24/20 01:33 Sodium 136 mmol/L (136-145) 09/25/20 12:02 POC Potassium 4.1 mmol/L (3.3-5.0) 09/24/20 01:33 Potassium 3.4 mmol/L (3.5-5.1) L 09/25/20 12:02 POC Chloride 99 mmol/L (101-112) L 09/24/20 01:33 Chloride 104 mmol/L (98-107) 09/25/20 12:02 Carbon Dioxide 25 mmol/L (21-32) 09/25/20 12:02 POC Total CO2 21 mmol/L (24-31) L 09/24/20 01:33 Anion Gap 7.0 (3-11) 09/25/20 12:02 POC Anion Gap 20.0 mmol/L (16-25) 09/24/20 01:33 POC BUN 21 mg/dl (7-18) H 09/24/20 01:33 BUN 27 mg/dl (7-18) H 09/25/20 12:02 Creatinine 1.32 mg/dl (0.6-1.4) 09/25/20 12:02 POC Creatinine 1.3 mg/dl (0.6-1.3) 09/24/20 01:33 Est Cr Clr Drug Dosing 97.3 ml/min 09/25/20 12:02 Est GFR ( Amer) 76.6 ml/min 09/25/20 12:02 Est GFR (Non-Af Amer) 66.1 ml/min 09/25/20 12:02 BUN/Creatinine Ratio 20.1 (10-20) H 09/25/20 12:02 Glucose 114 mg/dl (70-99) H 09/25/20 12:02 POC Glucose (other) 104 mg/dl (70-99) H 09/24/20 01:33 Estimat Average Glucose 123 mg/dl 09/25/20 06:30 Hemoglobin A1c 5.9 % (4.5-5.6) H 09/25/20 06:30 Lactate 1.9 mmol/L (0.4-2.0) 09/24/20 04:18 Calcium 8.5 mg/dl (8.5-10.1) 09/25/20 12:02 POC Ioniz Calcium [place] 0.98 mmol/l (1.12-1.32) L 09/24/20 01:33 Ionized Calcium 1.03 mmol/L (1.12-1.32) L 09/24/20 12:15 Magnesium 1.9 mg/dl (1.8-2.4) 09/24/20 01:35 Iron 116 mcg/dl (35-175) 09/24/20 09:23 Transferrin 262 mg/dl (200-360) 09/24/20 09:23 Transferrin % Sat 31 % (20-50) 09/24/20 09:23 Ferritin 250.9 ng/ml (8-388) 09/24/20 09:23 Total Bilirubin 2.0 mg/dl (0.2-1) H 09/25/20 06:45 Direct Bilirubin 0.9 mg/dl (0-0.2) H 09/25/20 06:45 AST 67 U/L (15-37) H 09/25/20 06:45 ALT 207 U/L (12-78) H 09/25/20 06:45 Alkaline Phosphatase 54 U/L (45-117) 09/25/20 06:45 Troponin I 0.165 ng/ml (0-0.045) H* 09/25/20 06:45 C-Reactive Protein 0.87 mg/dl (0-0.29) H 09/25/20 06:30 NT-Pro-B Natriuret Pep 61077 pg/ml (0-450) H 09/24/20 01:35 Total Protein 6.6 gm/dl (6.4-8.2) 09/25/20 06:45 Albumin 3.1 gm/dl (3.4-5.0) L 09/25/20 06:45 Globulin 3.4 gm/dl (2.5-4.0) 09/24/20 01:35 Albumin/Globulin Ratio 1.1 (0.9-2) 09/24/20 01:35 Triglycerides 63 mg/dl (0-150) 09/25/20 06:30 Cholesterol 69 mg/dl (0-200) 09/25/20 06:30 LDL Cholesterol, Calc 32 mg/dl 09/25/20 06:30 VLDL Cholesterol, Calc 13 mg/dl 09/25/20 06:30 HDL Cholesterol 24 mg/dl 09/25/20 06:30 Cholesterol/HDL Ratio 3 09/25/20 06:30 Angiotensin Convert Enz Cancelled 09/24/20 03:09 Procalcitonin < 0.05 ng/ml (0-0.5) 09/24/20 01:35 TSH 3.560 uIu/ml (0.300-4.500) 09/24/20 03:09 Urine Color Yellow 09/24/20 03:20 Urine Appearance Clear (Clear) 09/24/20 03:20 Urine pH 5.5 (4.5-7.5) 09/24/20 03:20 Ur Specific [place] > 1.045 (1.000-1.030) H 09/24/20 03:20 Urine Protein 1+ (Negative) H 09/24/20 03:20 Urine Glucose (UA) Negative (Negative) 09/24/20 03:20 Urine Ketones Negative (Negative) 09/24/20 03:20 Urine Blood Negative (Negative) 09/24/20 03:20 Urine Nitrite Negative (Negative) 09/24/20 03:20 Urine Bilirubin Negative (Negative) 09/24/20 03:20 Urine Urobilinogen Negative (Negative) 09/24/20 03:20 Ur Leukocyte Esterase Negative (Negative) 09/24/20 03:20 Urine WBC (Auto) 1-5 /hpf (0-5) 09/24/20 03:20 Urine RBC (Auto) 0-4 /hpf (0-4) 09/24/20 03:20 U Hyaline Cast (Auto) 0 /lpf (0-5) 09/24/20 03:20 U Epithel Cells (Auto) 5-10 /lpf (0-5) H 09/24/20 03:20 Urine Bacteria (Auto) Negative (Negative) 09/24/20 03:20 Urine Opiates Screen Neg (Neg) 09/24/20 03:20 Ur Methadone, Qual Neg (Neg) 09/24/20 03:20 Urine Barbiturates Neg (Neg) 09/24/20 03:20 Ur Phencyclidine (PCP) Neg (Neg) 09/24/20 03:20 U Amphetamin/Meth Scrn Neg (Neg) 09/24/20 03:20 MDMA (Ecstasy) Screen Neg (Neg) 09/24/20 03:20 U Benzodiazepines Scrn Neg (Neg) 09/24/20 03:20 Ur Cocaine Metabolite Neg (Neg) 09/24/20 03:20 U Marijuana (THC) Screen Neg (Neg) 09/24/20 03:20 Anaplasma Smear See Comment 09/24/20 01:35 Lyme Disease IgG Ab Negative (Negative) 09/24/20 03:09 Lyme Disease IgM Ab Negative (Negative) 09/24/20 03:09 COVID-19 Eval Order Covid19 at [facility] 09/24/20 01:35 SARS-CoV-2 (PCR) NEGATIVE (Negative) 09/24/20 01:35 Hepatitis A IgM Ab NON-REACTIVE (NON-REACTIVE) 09/24/20 03:09 Hep Bs Antigen Neg (Neg) 09/24/20 01:25 Hep B Core IgM Ab NON-REACTIVE (NON-REACTIVE) 09/24/20 03:09 Hepatitis C Antibody Neg (Neg) 09/24/20 01:25 Impressions Chest X-Ray 09/24/20 01:36 XR chest 1V portable HISTORY: SEPSIS COMPARISON: Chest CTA 09/24/2020. FINDINGS: No pneumothorax. The cardiac silhouette is moderately enlarged. There is perihilar interstitial/vascular thickening consistent with mild pulmonary edema. There are trace bilateral pleural effusions. IMPRESSION: Cardiomegaly with mild interstitial pulmonary edema and trace bilateral pleural effusions. ACT 112: Negative or not required by law. Electronically signed by: Waylon Hancock M.D. 09/24/2020 7:45 AM Abdomen/Pelvis CTA 09/24/20 01:40 CT angio abd pelvis wo/w con CT DOSE: 3697.58 mGy.cm CLINICAL HISTORY: pain, sob, htn, diaph TECHNIQUE: A dose lowering technique was utilized adhering to the principles of ALARA. COMPARISON STUDY: None FINDINGS: For limited evaluation of lower chest please see report of CT of the chest performed at the same time. Abdominal aorta is normal in caliber without evidence of aortic wall hematoma, aneurysmal dilatation or dissection. Bilateral renal, celiac and superior mesenteric artery and its branches are patent and well opacified. Liver is normal in size with mild decrease in attenuation of its parenchyma and no evidence of focal lesions. Mild ascites is seen. Gallbladder, spleen, pancreas and bilateral adrenal glands are unremarkable. No hydronephrosis or nephrolithiasis is seen. Urinary bladder is partially decompressed which limits evaluation. Prostate gland is not enlarged. Large left inguinal hernia is seen containing nondilated loop of large bowel. Small hiatal hernia is seen. Small amount of fluid collection is seen surrounding distal aspect of esophagus. Bowel loops are nondilated. Appendix is not well seen. No free intra-abdominal gas is seen. Diffuse mesenteric edema and mild ascites is seen. Small amount of free fluid is also seen within retroperitoneal region. Multiple small lymph nodes are seen within the retroperitoneal region. No definite lymphadenopathy seen within mesentery. Osseous structures: Multilevel degenerative changes of the spine. Old fracture deformity of the right iliac bone. Diffuse subcutaneous edema is seen. IMPRESSION: 1. No evidence of aortic dissection, aneurysmal dilatation, aortic wall hematoma or fractures seen. 2. Large left inguinal hernia containing nondilated loop of large bowel. No evidence of bowel obstruction. 3. Mild ascites, anasarca and diffuse mesenteric edema most likely representing edematous state and not acute intra-abdominal process. 4. Normal appearance of the bowel and solid organs. ACT 112: Negative or not required by law. The above report was generated using voice recognition software. It may contain grammatical, syntax or spelling errors. Electronically signed by: Catherine Robertson DO 09/24/2020 2:33 AM Chest CTA 09/24/20 01:40 CT ANGIOGRAM OF THE CHEST COMBO CLINICAL HISTORY: Diaphoresis COMPARISON STUDY: None TECHNIQUE: Before and following the IV administration of 180 cc of Optiray, CT angiogram of the chest was performed from the thoracic inlet to the upper abdomen utilizing the dissection protocol. Images are reviewed in the axial, sagittal, and coronal planes. 3-D MIPS images are created and assessed. IV contrast was administered without complication. A dose lowering technique was utilized adhering to the principles of ALARA. CT DOSE: FINDINGS: Thoracic aorta is normal in caliber without evidence of dissection, hematoma or aneurysmal dilatation. Pulmonary artery is normal in caliber. Opacification within pulmonary artery is insufficient for evaluation for pulmonary artery embolus. There is no axillary, supra clavicle or internal mammary lymphadenopathy seen. There are multiple mottled mediastinal and hilar lymph nodes are seen measuring up to 1.8 cm in short axis. Thyroid: Imaged portions of the thyroid gland are normal in size and attenuation. Heart: Mild four-chamber cardiomegaly. Mild pericardial effusion is seen. Lungs and pleural spaces: Tracheobronchial tree is patent. There is 3.3 x 4.0 cm subpleural mass within left lower lobe with central area of decrease attenuation which might represent neoplastic or infectious process. Due to decreased attenuation within center of this mass pulmonary infarct is also possible. Small area of groundglass attenuation is seen at dependent portion of the right lower lobe. Trace bilateral pleural effusion is seen.. Skeletal structures: No definite aggressive osseous lesions are seen. Mild degenerative changes of the spine. Bilateral gynecomastia is seen. IMPRESSION: 1. Normal appearance of thoracic aorta without aneurysmal dilatation or dissection. 2. Mild four-chamber cardiomegaly. Pericardial effusion is seen. 3. Mediastinal lymphadenopathy. Questionable mass within left lower lobe as detailed above. Please correlate above-mentioned findings with prior history of neoplastic process. 4. Bilateral gynecomastia. ACT 112: Positive. There are findings on this exam that require communication between the performing entity and the patient following Patient Test Result Information Act ([place] Act 112) guidelines.
[2020-09-25] MEDS: DOXYCYCLINE HYCLATE 100 MG CAP PO SCH ×2 (08:31→20:05)
[2020-09-25] MEDS: ATORVASTATIN 40 MG TAB PO SCH (08:32)
--- NOTE | 2020-09-25 09:31 | Cardiology Progress Note ---
Date of Service September 25, 2020 Assessment & Plan (1) Acute systolic CHF (congestive heart failure): (2) Cardiomyopathy: (3) LBBB (left bundle branch block): (4) Elevated LFTs: (5) Elevated troponin: (6) Ventricular tachycardia: (7) Hypertension: ASSESSMENT/PLAN: 1. Acute systolic CHF: He continues to be hypervolemic, but did affect a good diuresis yesterday. Perhaps some improvement in symptoms and notable improvement in the abdominal edema. Renal function appears stable. Autumn ctrolytes stable. I will continue his current dose of diuretic. 2. Cardiomyopathy: Unclear etiology. Multiple serum studies performed today. Ischemic etiology less likely given the appearance of his heart on echocardiogram. However, he certainly has risk factors for coronary disease. No exertional angina by report. Apparently not amenable to coronary angiography at this point in any event. He was started on low-dose carvedilol. Will continue diuresis. Spironolactone started. Entresto will be started today both for his cardiomyopathy as well as improved blood pressure control. 3. LBBB: Newly diagnosed. No symptoms suggestive of an acute coronary syndrome 4. Elevated transaminase levels: Probably due to hepatic congestion. 5. Elevated troponin: He did not present with acute coronary syndrome. No cardiac indication for continued anticoagulation. 6. Hypertension: Blood pressure elevated. Increasing blood pressure medications and adding spironolactone and Entresto 7. Nonsustained ventricular tachycardia: No recurrence 8. Lung mass: Outpatient follow-up planned Admission and Anticipated Discharge Date Admission Date: September 24, 2020 Subjective This morning patient claimed he feeling well. He did not report symptoms of chest discomfort or palpitations. Did not report dizziness or lightheadedness when ambulating to the restroom. He continues to have an element of mild dyspnea, but none at rest. Review of Systems Review of Systems: Per HPI Physical Exam Physical Exam: The patient is alert and oriented. Mood and affect appeared normal. He answered all questions appropriately. HEENT: Pupils are equal and reactive to light and accommodation. Extraocular movements are intact. The sclerae are anicteric. Neuro: Cranial nerves intact Lungs: Crackles throughout both lungs mendez. Normal respiratory effort. No expiratory wheezing. Cardiac: Heart demonstrates a regular rate and rhythm. Normal S1 and S2. No murmurs on examination. Pulses: The patient has palpable radial pulses bilaterally that are equal in intensity Extremities: There was no evidence of hypoperfusion. There is no cyanosis or clubbing. Mild to moderate bilateral lower extremity edema Skin: I did not appreciate any rashes on examination today. Results & Data ([facility]) Vital Signs (Past 12 Hours) Vital Signs Temp Pulse Pulse Resp BP BP Pulse Ox 09/25/20 08:40 163/129 H 09/25/20 08:38 36.6 C 95 H 16 154/120 H 98 09/25/20 07:23 100 H 09/25/20 06:17 149/106 H 09/25/20 03:30 36.8 C 96 H 18 147/112 H 98 09/25/20 02:09 94 H 151/114 H 151/113 H 09/24/20 23:59 92 H 09/24/20 23:54 95 H 148/101 H 96 09/24/20 22:43 36.5 C 92 H 16 146/109 H 98 Laboratory Results Abnormal Lab Results 09/24/20 09/24/20 09/24/20 03:09 03:09 09:23 WBC RBC Hgb Hct MCV MCH MCHC RDW Std Deviation RDW Coeff of Camryn Plt Count MPV Immature Gran % (Auto) Neut % (Auto) Lymph % (Auto) [place] % (Auto) Eos % (Auto) Baso % (Auto) Neut # (Auto) Lymph # (Auto) [place] # (Auto) Eos # (Auto) Baso # (Auto) Immature Gran # (Auto) ESR APTT PTT Ratio Sodium Potassium Chloride Carbon Dioxide Anion Gap BUN Creatinine Est Cr Clr Drug Dosing Est GFR ( Amer) Est GFR (Non-Af Amer) BUN/Creatinine Ratio Glucose Estimat Average Glucose Hemoglobin A1c Calcium Ionized Calcium Iron Transferrin Transferrin % Sat Ferritin Troponin I 0.255 H* C-Reactive Protein Triglycerides Cholesterol LDL Cholesterol, Calc VLDL Cholesterol, Calc HDL Cholesterol Cholesterol/HDL Ratio Angiotensin Convert Enz Cancelled Hepatitis A IgM Ab NON-REACTIVE Hep B Core IgM Ab NON-REACTIVE 09/24/20 09/24/20 09/24/20 09:23 12:15 12:15 WBC RBC Hgb Hct MCV MCH MCHC RDW Std Deviation RDW Coeff of Camryn Plt Count MPV Immature Gran % (Auto) Neut % (Auto) Lymph % (Auto) [place] % (Auto) Eos % (Auto) Baso % (Auto) Neut # (Auto) Lymph # (Auto) [place] # (Auto) Eos # (Auto) Baso # (Auto) Immature Gran # (Auto) ESR APTT PTT Ratio Sodium 133 L Potassium 3.6 Chloride 103 Carbon Dioxide 22 Anion Gap 8.0 BUN 21 H Creatinine 1.33 Est Cr Clr Drug Dosing 97.4 Est GFR ( Amer) 75.9 Est GFR (Non-Af Amer) 65.5 BUN/Creatinine Ratio 15.8 Glucose 110 H Estimat Average Glucose Hemoglobin A1c Calcium 8.6 Ionized Calcium 1.03 L Iron 116 Transferrin 262 Transferrin % Sat 31 Ferritin 250.9 Troponin I C-Reactive Protein Triglycerides Cholesterol LDL Cholesterol, Calc VLDL Cholesterol, Calc HDL Cholesterol Cholesterol/HDL Ratio Angiotensin Convert Enz Hepatitis A IgM Ab Hep B Core IgM Ab 09/24/20 09/25/20 09/25/20 13:14 06:30 06:30 WBC RBC Hgb Hct MCV MCH MCHC RDW Std Deviation RDW Coeff of Camryn Plt Count MPV Immature Gran % (Auto) Neut % (Auto) Lymph % (Auto) [place] % (Auto) Eos % (Auto) Baso % (Auto) Neut # (Auto) Lymph # (Auto) [place] # (Auto) Eos # (Auto) Baso # (Auto) Immature Gran # (Auto) ESR APTT 58.1 H* PTT Ratio 2.2 Sodium 136 Potassium 3.6 Chloride 104 Carbon Dioxide 20 L Anion Gap 12.0 H BUN 28 H Creatinine 1.36 Est Cr Clr Drug Dosing 94.5 Est GFR ( Amer) 73.9 Est GFR (Non-Af Amer) 63.7 BUN/Creatinine Ratio 20.6 H Glucose 89 Estimat Average Glucose 123 Hemoglobin A1c 5.9 H Calcium 8.8 Ionized Calcium Iron Transferrin Transferrin % Sat Ferritin Troponin I C-Reactive Protein 0.87 H Triglycerides 63 Cholesterol 69 LDL Cholesterol, Calc 32 VLDL Cholesterol, Calc 13 HDL Cholesterol 24 Cholesterol/HDL Ratio 3 Angiotensin Convert Enz Hepatitis A IgM Ab Hep B Core IgM Ab 09/25/20 09/25/20 09/25/20 06:30 06:30 06:30 WBC 10.96 H RBC 5.51 Hgb 16.4 Hct 49.2 MCV 89.3 MCH 29.8 MCHC 33.3 RDW Std Deviation 46.9 H RDW Coeff of Camryn 14.5 Plt Count 370 MPV 8.9 Immature Gran % (Auto) 0.3 Neut % (Auto) 71.8 Lymph % (Auto) 18.9 [place] % (Auto) 8.0 Eos % (Auto) 0.5 Baso % (Auto) 0.5 Neut # (Auto) 7.87 H Lymph # (Auto) 2.07 [place] # (Auto) 0.88 H Eos # (Auto) 0.05 Baso # (Auto) 0.06 Immature Gran # (Auto) 0.03 H ESR 8 APTT 56.7 H* PTT Ratio 2.2 Sodium Potassium Chloride Carbon Dioxide Anion Gap BUN Creatinine Est Cr Clr Drug Dosing Est GFR ( Amer) Est GFR (Non-Af Amer) BUN/Creatinine Ratio Glucose Estimat Average Glucose Hemoglobin A1c Calcium Ionized Calcium Iron Transferrin Transferrin % Sat Ferritin Troponin I C-Reactive Protein Triglycerides Cholesterol LDL Cholesterol, Calc VLDL Cholesterol, Calc HDL Cholesterol Cholesterol/HDL Ratio Angiotensin Convert Enz Hepatitis A IgM Ab Hep B Core IgM Ab Diagnostic Findings Echocardiogram performed on 09/24/2020: Moderately dilated left ventricle with ejection fraction of 15-20%. Severe global hypokinesis. Moderate LVH. Moderately dilated right ventricle with moderately reduced systolic function. Severe left atrial dilation. Mild mitral regurgitation. Estimated right brendan tricular systolic pressure of 41 mm of mercury. PG Care Time/CCT Total # of Minutes Spent Total Time Spent with Patient: Total time spent is greater than 50% in coordination of care (as documented) at patient's floor/unit and/or counseling patient: Coding Level of Care Code 47855 Subseq Hosp Care Lvl 2 Diagnoses Acute systolic CHF (congestive heart failure) I50.21 Cardiomyopathy I42.9 LBBB (left bundle branch block) I44.7 Elevated LFTs R79.89 Elevated troponin R77.8 Ventricular tachycardia I47.2 Hypertension I10
--- NOTE | 2020-09-25 10:25 | Electrocardiogram Report ---
Test Reason : Blood Pressure : / mmHG Vent. Rate : 096 BPM Atrial Rate : 096 BPM P-R Int : 180 ms QRS Dur : 168 ms QT Int : 438 ms P-R-T Axes : 067 022 153 degrees QTc Int : 553 ms Normal sinus rhythm Left atrial enlargement Left bundle branch block Abnormal ECG When compared with ECG of 24-SEP-2020 02:34, No significant change was found Confirmed by Bertin Mendez ([id number] on 09/25/2020 10:25:25 AM Referred By: REFERRED SELF Confirmed By:Waldemar Mendez
[2020-09-25] MEDS: HEPARIN SODIUM/DEXTROSE 25,000 UNITS/500 ML BAG IV SCH (10:34)
[2020-09-25 10:55] LABS: Albumin Level 3.1 gm/dl (3.4-5.0); Bilirubin Direct 0.9 mg/dl (0-0.2); Total Protein 6.6 gm/dl (6.4-8.2); Troponin I 0.165 ng/ml (0-0.045)
[2020-09-25] MEDS ORDERED: levoFLOXacin 750 MG TAB PO SCH (11:00)
[2020-09-25 12:38] LABS: BUN Creatinine Ratio 20.1 (10-20); Calcium 8.5 mg/dl (8.5-10.1); Creatinine Clr Calc Pharmacy 97.3 ml/min; Est GFR (African American) 76.6 ml/min; Est GFR (Non-African American) 66.1 ml/min; Potassium 3.4 mmol/L (3.5-5.1)
--- NOTE | 2020-09-25 12:47 | Pulmonology Progress Note ---
Date of Service September 25, 2020 Assessment & Plan (1) Abnormal chest CT: CT chest 09/24/2020 personally reviewed: Small bilateral pleural effusions, left lower lobe 4 x 3.3 cm opacity peripheral, supradiaphragmatic. Looks like reverse halo sign Mediastinal lymphadenopathy appreciated --Abnormal chest CT Left lower lobe 4 x 3.3 cm opacity Looks like Atoll sign Patient is asymptomatic It can be seen in variety of things including but not limited to infection, a utoimmune as well as cryptogenic organizing pneumonia In autoimmune :- sarcoid, granulomatosis with polyangiitis, lipoid pneumonitis can present this way Infectious could include invasive pulmonary aspergillosis, pulmonary mucormycosis (patient is not that sick for him to have this disease.), Cocc idioidomycosis Malignancy is also in the differential were very low on the list Procalcitonin negative Autoimmune work-up has been ordered, BERNABE level ESR 8, CRP 0.[address] chest in 6-8 weeks --Mediastinal adenopathy I think this is reactive to the low ejection fraction that the patient has causing passive congestion of the lymph nodes --History of asthma Not on any inhalers at home Outpatient pulmonary follow-up for PFTs --Bilateral pleural effusion Small Continue with diuretics Plan: Continue with doxycycline for 5 days Doing bronchoscopy with BAL and TBBBx of the left lower lobe could be thought of, another option would be repeating a CAT scan in 8 weeks to see if that opacity still present. He said he is going to think about it and let us know Please note the above document was generated using voice recognition software. It may contain grammatical, syntax or spelling errors.Any formal questions or concerns about the content, text or information contained within the body of this dictation should be directly addressed to the provider for clarification. (2) LAD (lymphadenopathy), mediastinal: (3) Pleural effusion: (4) Asthma: Admission and Anticipated Discharge Date Admission Date: September 24, 2020 Subjective Patient seen and examined at bedside. No acute distress. States that he is feeling better. Was complaining of feeling a bit hot but followed by saying that he is always hot. Denies any dysuria. Has been urinating well. Fair appetite. No headache, no dizziness, no shortness of breath, no cough. Denies any chest p ain Review of Systems Review of Systems: All systems reviewed & are unremarkable except as noted in Subjective Physical Exam Physical Exam: Constitutional: No acute distress HEENT: EOMI, PERRLA Respiratory system: Decreased air entry bilaterally, no wheeze, no rhonchi, positive crackles bilateral lower lobes CVS: S1-S2 positive, no murmurs or gallops Abdomen: Soft, nontender, nondistended, positive bowel sounds x4, obese Extremities: +2 pulses bilaterally radialis/ dorsalis pedis, no cyanosis, +3 pitting edema bilateral lower extremity Neuro: Awake alert oriented x3 Psych: Normal mood and affect G/U: No Mendoza Skin: no rashes, warm and dry Lymphatic: no cervical or axillary lymphadenopathy Results & Data Results & Data ([facility]) Vital Signs (Past 12 Hours) Vital Signs Temp Pulse Pulse Resp BP BP Pulse Ox 09/25/20 12:22 36.6 C 97 H 16 142/103 H 142/102 H 98 09/25/20 09:30 149/114 H 09/25/20 08:40 163/129 H 09/25/20 08:38 36.6 C 95 H 16 154/120 H 98 09/25/20 07:23 100 H 09/25/20 06:17 149/106 H 09/25/20 03:30 36.8 C 96 H 18 147/112 H 98 09/25/20 02:09 94 H 151/114 H 151/113 H 09/25/20 06:30 09/25/20 12:02 PG Care Time/CCT Total # of Minutes Spent Total Time Spent with Patient: Total time spent is greater than 50% in coor dination of care (as documented) at patient's floor/unit and/or counseling patient: Coding Level of Care Code 30524 Subseq Hosp Care Lvl [address] R93.89 LAD (lymphadenopathy), mediastinal R59.0 Pleural effusion J90 Asthma J45.909
[2020-09-25] MEDS: FUROSEMIDE 40 MG in SYRINGE 0 ML IV SCH (17:14)
[2020-09-25 17:24] LABS: BUN Creatinine Ratio 18.5 (10-20); Calcium 8.7 mg/dl (8.5-10.1); Est GFR (African American) 64.1 ml/min; Est GFR (Non-African American) 55.3 ml/min; Potassium 3.5 mmol/L (3.5-5.1)
[2020-09-25] MEDS ORDERED: POTASSIUM CHLORIDE / WTR 10 MEQ/100 ML PLCT IV STA (19:28)
[2020-09-25] MEDS: POTASSIUM CHLORIDE / WTR 10 MEQ/100 ML PLCT IV SCH ×3 (20:42→22:45)
[2020-09-25] MEDS ORDERED: SACUBITRIL-VALSARTAN 24-26 MG TAB PO SCH (21:00)
[2020-09-25] MEDS ORDERED: SODIUM CHLORIDE 0.65% NA SOLN 45 ML (OCEAN) ONE (23:23)
[2020-09-26] MEDS: POTASSIUM CHLORIDE / WTR 10 MEQ/100 ML PLCT IV SCH (00:09)
[2020-09-26] MEDS ORDERED: hydrALAZINE HCL 20 MG/ML VIAL IV STA (03:42)
[2020-09-26] MEDS ORDERED: hydrALAZINE HCL 20 MG/ML VIAL ONE (03:45)
[2020-09-26 07:29] LABS: Basophils # (auto) 0.03 K/uL (0-0.2); Basophils % (auto) 0.4 %; Eosinophils # (auto) 0.07 K/uL (0-0.5); Eosinophils % (auto) 0.8 %; Hematocrit (blood only) 49.2 % (42-52); Immature Granulocytes # (auto) 0.02 K/uL (0.00-0.02); Immature Granulocytes % (auto) 0.2 %; Lymphocytes # (auto) 1.59 K/uL (1.2-3.4); Mean Corpuscular Hemoglobin 29.5 pg (25-34); Mean Corpuscular Hgb Conc 32.5 g/dL (32-36); Mean Corpuscular Volume 90.8 fL (80-100); Mean Platelet Volume 9.1 fL (7.4-10.4); Monocytes % (auto) 7.2 %; Neutrophils # (auto) 6.07 K/uL (1.4-6.5); Neutrophils % (auto) 72.4 %; Platelet Count 304 K/uL (130-400); RDW Coefficient of Variation 14.8 % (11.5-14.5); RDW Standard Deviation 48.5 fL (36.4-46.3); Red Blood Count 5.42 M/uL (4.7-6.1); White Blood Count 8.38 K/uL (4.8-10.8)
--- NOTE | 2020-09-26 07:34 | Hospitalist Progress Note ---
Date of Service September 26, 2020 Assessment & Plan (1) LBBB (left bundle branch block): (1) Acute systolic CHF (congestive heart failure): 40 yo male with hx of allergies and hypertension admitted for evaluation and management of new acute systolic CHF. New onset HFrEF - Chest CTA-mild four-chamber cardiomegaly. Mild pericardial effusion w/o tamponade - Echo- severely reduced ejection fraction 15-20% EF, global hypokinesis - troponins downtrended, BNP elevated 17k - Recommendations from cardiology appreciated - Heart failure program referral - Cardiac cath recommended, but patient declined at this time - Lasix 40 mg IV BID. I/O -1.5L for stay - Carvedilol 3.125 mg BID. - Spironolactone 25 mg p.o. QD - Entresto BID. - If no improvement with medical therapy, can consider biventricular ICD LBBB - new? no EKGs for comparison - stable on repeat EKGs - likely due to DC (reflux event) that occurred 2 weeks ago CardioHepatic Congestion, improving - transaminits due to acute CHF - hepatic panel negative, no masses or lesions or signs or cirrhosis appreciated on CTAP - Continue trending CMP Dilated Cardiomyopathy and resistant HTN workup - Hx of HTN from age 13 - Fmhx of PGF dying at 30 of DC - TSH normal, A1c 5.9 - Lipid:Cholesterol 69, LDL32, HDL 24 - BERNABE level, UPEP, SPEP pending - iron panel WNL - HIV pending - Anaplasma/Erlichiosis/EBV pending - CT A/P w/o mention of renal artery stenosis Coronary artery disease (suspected) - lipid panel WNL as above - ASA 81 daily GI symptoms - Likely stemming from acute CHF with severely reduced EF resulting in diffuse edema and poor perfusion. - Abdominal/ pelvis CTA- anasarca and diffuse mesenteric edema - Albumin normal - Giardia, Cdiff pending Hypocalcemia: - ICal 0.98 in ER; given calcium gluconate 1g IV. Lung mass - Chest CTA- 3.3 x 4.0 cm subpleural mass within left lower lobe with central area of decrease attenuation which might represent neoplastic or infectious process - Pt previously lived in a moldy apartment, no smoking hx - Pulmonology consulted: fungal labs pending, started on doxycycline BID. Discussed possibility of EBUS/Bronchoscopy on sunday for examination of mass Dispo: tele Diet: heart healthy, low sodium DVT prophylaxis: ambulation, SCDs Code: Full code (2) Elevated troponin: (3) Cardiomegaly: (4) Elevated LFTs: (5) Hypocalcemia: (6) Lung mass: Admission and Anticipated Discharge Date Admission Date: September 24, 2020 Supervising Physician Co-Signing Physician Notes I personally saw and examined the patient. I verified all smith points and agree with Dr Ana Campoverde, resident physician with the following exceptions and/or additions: No shortness of breath or chest pain. Improved leg swelling. O/E No respiratory distress, 2+ bilateral LE pitting edema A/P Acute HFrEF - Start Entresto. Continue carvedilol and current lasix dosing to aim 1L negative fluid balance daily. Highly recommended further ischemic workup with cardiac catheterization. He is yet to tell his mother and highly recommend he discusses his decisions with his family. Subjective continues to feel okay. denies any symptoms associated with elevated blood pre ssures. no chest pain, pain with exertion, SOB. discussed at length options of medical management vs. catheterization for workup of CHF. he is considering cath, but remains hesitant and concerned that "they might find something worse"/"about going under". Review of Systems Constitutional: no fever, no sweats and no body aches Respiratory: no cough, no dyspnea and no pain on inspiration Cardiovascular: + edema; no chest pain, no radiating jaw, neck or arm pain, no dyspnea on exertion and no palpitations Physical Exam Physical Exam: Constitutional: obese, in no apparent distress, sitting comfortably in bedside chair Eyes: EOMI, pupils equal and reactive bilaterally, no scleral icterus Cardiac: RRR, no murmurs, gallops or rubs. Normal S1, S2 Pulm: CTA BL, no wheezes, rhonchi, crackles or rubs, moving air well throughout both lungs Abd: soft, nontender, nondistended, normal bowel sounds, no rebound or guarding Extremities: 2+ peripheral pulses, 2+ pitting edema to knees bilaterally Neuro: no focal deficits, moving all 4 limbs, A&Ox3 Results & Data Results & Data ([facility]) Vital Signs (Past 12 Hours) Vital Signs Temp Pulse Pulse Pulse Resp BP BP 09/26/20 07:18 92 H 09/26/20 04:53 149/95 H 128/88 09/26/20 03:48 147/108 H 137/102 H 09/26/20 03:30 36.5 C 92 H 16 141/103 H 146/116 H 09/25/20 23:59 89 09/25/20 23:11 36.5 C 90 16 127/89 09/25/20 22:25 132/96 09/25/20 20:07 95 H 150/108 H Pulse Ox 09/26/20 07:18 09/26/20 04:53 09/26/20 03:48 09/26/20 03:30 98 09/25/20 23:59 09/25/20 23:11 97 09/25/20 22:25 09/25/20 20:07 Laboratory Results WBC 8.38 K/uL (4.8-10.8) 09/26/20 07:14 RBC 5.42 M/uL (4.7-6.1) 09/26/20 07:14 Hgb 16.0 g/dL (14.0-18.0) 09/26/20 07:14 POC Hgb 18.4 g/dl (14.0-18.0) H 09/24/20 01:33 Hct 49.2 % (42-52) 09/26/20 07:14 POC Hct 54 % (42-52) H 09/24/20 01:33 MCV 90.8 fL (80-100) 09/26/20 07:14 MCH 29.5 pg (25-34) 09/26/20 07:14 MCHC 32.5 g/dL (32-36) 09/26/20 07:14 RDW Std Deviation 48.5 fL (36.4-46.3) H 09/26/20 07:14 RDW Coeff of Camryn 14.8 % (11.5-14.5) H 09/26/20 07:14 Plt Count 304 K/uL (130-400) 09/26/20 07:14 MPV 9.1 fL (7.4-10.4) 09/26/20 07:14 Immature Gran % (Auto) 0.2 % 09/26/20 07:14 Neut % (Auto) 72.4 % 09/26/20 07:14 Lymph % (Auto) 19.0 % 09/26/20 07:14 Brule % (Auto) 7.2 % 09/26/20 07:14 Eos % (Auto) 0.8 % 09/26/20 07:14 Baso % (Auto) 0.4 % 09/26/20 07:14 Neut # (Auto) 6.07 K/uL (1.4-6.5) 09/26/20 07:14 Lymph # (Auto) 1.59 K/uL (1.2-3.4) 09/26/20 07:14 Brule # (Auto) 0.60 K/uL (0.11-0.59) H 09/26/20 07:14 Eos # (Auto) 0.07 K/uL (0-0.5) 09/26/20 07:14 Baso # (Auto) 0.03 K/uL (0-0.2) 09/26/20 07:14 Immature Gran # (Auto) 0.02 K/uL (0.00-0.02) 09/26/20 07:14 ESR 8 mm/hr (0-15) 09/25/20 06:30 PT 14.0 Seconds (9.0-12.0) H 09/24/20 01:35 INR 1.4 (0.9-1.1) H 09/24/20 01:35 APTT 28.8 Seconds (21.0-31.0) 09/26/20 07:14 PTT Ratio 1.1 09/26/20 07:14 POC Sodium 136 mmol/L (135-144) 09/24/20 01:33 Sodium 136 mmol/L (136-145) 09/26/20 07:14 POC Potassium 4.1 mmol/L (3.3-5.0) 09/24/20 01:33 Potassium 3.7 mmol/L (3.5-5.1) 09/26/20 07:14 POC Chloride 99 mmol/L (101-112) L 09/24/20 01:33 Chloride 104 mmol/L (98-107) 09/26/20 07:14 Carbon Dioxide 29 mmol/L (21-32) 09/26/20 07:14 POC Total CO2 21 mmol/L (24-31) L 09/24/20 01:33 Anion Gap 4.0 (3-11) 09/26/20 07:14 POC Anion Gap 20.0 mmol/L (16-25) 09/24/20 01:33 POC BUN 21 mg/dl (7-18) H 09/24/20 01:33 BUN 26 mg/dl (7-18) H 09/26/20 07:14 Creatinine 1.32 mg/dl (0.6-1.4) 09/26/20 07:14 POC Creatinine 1.3 mg/dl (0.6-1.3) 09/24/20 01:33 Est Cr Clr Drug Dosing 97.3 ml/min 09/26/20 07:14 Est GFR ( Amer) 76.6 ml/min 09/26/20 07:14 Est GFR (Non-Af Amer) 66.1 ml/min 09/26/20 07:14 BUN/Creatinine Ratio 20.0 (10-20) 09/26/20 07:14 Glucose 84 mg/dl (70-99) 09/26/20 07:14 POC Glucose (other) 104 mg/dl (70-99) H 09/24/20 01:33 Estimat Average Glucose 123 mg/dl 09/25/20 06:30 Hemoglobin A1c 5.9 % (4.5-5.6) H 09/25/20 06:30 Lactate 1.9 mmol/L (0.4-2.0) 09/24/20 04:18 Calcium 8.4 mg/dl (8.5-10.1) L 09/26/20 07:14 POC Ioniz Calcium [place] 0.98 mmol/l (1.12-1.32) L 09/24/20 01:33 Ionized Calcium 1.03 mmol/L (1.12-1.32) L 09/24/20 12:15 Phosphorus 2.7 mg/dl (2.5-4.9) 09/26/20 07:14 Magnesium 1.8 mg/dl (1.8-2.4) 09/26/20 07:14 Iron 116 mcg/dl (35-175) 09/24/20 09:23 Transferrin 262 mg/dl (200-360) 09/24/20 09:23 Transferrin % Sat 31 % (20-50) 09/24/20 09:23 Ferritin 250.9 ng/ml (8-388) 09/24/20 09:23 Total Bilirubin 2.0 mg/dl (0.2-1) H 09/25/20 06:45 Direct Bilirubin 0.9 mg/dl (0-0.2) H 09/25/20 06:45 AST 67 U/L (15-37) H 09/25/20 06:45 ALT 207 U/L (12-78) H 09/25/20 06:45 Alkaline Phosphatase 54 U/L (45-117) 09/25/20 06:45 Troponin I 0.165 ng/ml (0-0.045) H* 09/25/20 06:45 C-Reactive Protein 0.87 mg/dl (0-0.29) H 09/25/20 06:30 NT-Pro-B Natriuret Pep 13865 pg/ml (0-450) H 09/24/20 01:35 Total Protein 6.6 gm/dl (6.4-8.2) 09/25/20 06:45 Albumin 3.1 gm/dl (3.4-5.0) L 09/25/20 06:45 Globulin 3.4 gm/dl (2.5-4.0) 09/24/20 01:35 Albumin/Globulin Ratio 1.1 (0.9-2) 09/24/20 01:35 Triglycerides 63 mg/dl (0-150) 09/25/20 06:30 Cholesterol 69 mg/dl (0-200) 09/25/20 06:30 LDL Cholesterol, Calc 32 mg/dl 09/25/20 06:30 VLDL Cholesterol, Calc 13 mg/dl 09/25/20 06:30 HDL Cholesterol 24 mg/dl 09/25/20 06:30 Cholesterol/HDL Ratio 3 09/25/20 06:30 Angiotensin Convert Enz Cancelled 09/24/20 03:09 Procalcitonin < 0.05 ng/ml (0-0.5) 09/24/20 01:35 TSH 3.560 uIu/ml (0.300-4.500) 09/24/20 03:09 Urine Color Yellow 09/24/20 03:20 Urine Appearance Clear (Clear) 09/24/20 03:20 Urine pH 5.5 (4.5-7.5) 09/24/20 03:20 Ur Specific [place] > 1.045 (1.000-1.030) H 09/24/20 03:20 Urine Protein 1+ (Negative) H 09/24/20 03:20 Urine Glucose (UA) Negative (Negative) 09/24/20 03:20 Urine Ketones Negative (Negative) 09/24/20 03:20 Urine Blood Negative (Negative) 09/24/20 03:20 Urine Nitrite Negative (Negative) 09/24/20 03:20 Urine Bilirubin Negative (Negative) 09/24/20 03:20 Urine Urobilinogen Negative (Negative) 09/24/20 03:20 Ur Leukocyte Esterase Negative (Negative) 09/24/20 03:20 Urine WBC (Auto) 1-5 /hpf (0-5) 09/24/20 03:20 Urine RBC (Auto) 0-4 /hpf (0-4) 09/24/20 03:20 U Hyaline Cast (Auto) 0 /lpf (0-5) 09/24/20 03:20 U Epithel Cells (Auto) 5-10 /lpf (0-5) H 09/24/20 03:20 Urine Bacteria (Auto) Negative (Negative) 09/24/20 03:20 Urine Opiates Screen Neg (Neg) 09/24/20 03:20 Ur Methadone, Qual Neg (Neg) 09/24/20 03:20 Urine Barbiturates Neg (Neg) 09/24/20 03:20 Ur Phencyclidine (PCP) Neg (Neg) 09/24/20 03:20 U Amphetamin/Meth Scrn Neg (Neg) 09/24/20 03:20 MDMA (Ecstasy) Screen Neg (Neg) 09/24/20 03:20 U Benzodiazepines Scrn Neg (Neg) 09/24/20 03:20 Ur Cocaine Metabolite Neg (Neg) 09/24/20 03:20 U Marijuana (THC) Screen Neg (Neg) 09/24/20 03:20 Anaplasma Smear See Comment 09/24/20 01:35 Lyme Disease IgG Ab Negative (Negative) 09/24/20 03:09 Lyme Disease IgM Ab Negative (Negative) 09/24/20 03:09 COVID-19 Eval Order Covid19 at [facility] 09/24/20 01:35 SARS-CoV-2 (PCR) NEGATIVE (Negative) 09/24/20 01:35 Hepatitis A IgM Ab NON-REACTIVE (NON-REACTIVE) 09/24/20 03:09 Hep Bs Antigen Neg (Neg) 09/24/20 01:25 Hep B Core IgM Ab NON-REACTIVE (NON-REACTIVE) 09/24/20 03:09 Hepatitis C Antibody Neg (Neg) 09/24/20 01:25 Impressions Chest X-Ray 09/24/20 01:36 XR chest 1V portable HISTORY: SEPSIS COMPARISON: Chest CTA 09/24/2020. FINDINGS: No pneumothorax. The cardiac silhouette is moderately enlarged. There is perihilar interstitial/vascular thickening consistent with mild pulmonary edema. There are trace bilateral pleural effusions. IMPRESSION: Cardiomegaly with mild interstitial pulmonary edema and trace bilateral pleural effusions. ACT 112: Negative or not required by law. Electronically signed by: Waylon Hancock M.D. 09/24/2020 7:45 AM Abdomen/Pelvis CTA 09/24/20 01:40 CT angio abd pelvis wo/w con CT DOSE: 3697.58 mGy.cm CLINICAL HISTORY: pain, sob, htn, diaph TECHNIQUE: A dose lowering technique was utilized adhering to the principles of ALARA. COMPARISON STUDY: None FINDINGS: For limited evaluation of lower chest please see report of CT of the chest performed at the same time. Abdominal aorta is normal in caliber without evidence of aortic wall hematoma, aneurysmal dilatation or dissection. Bilateral renal, celiac and superior mesenteric artery and its branches are patent and well opacified. Liver is normal in size with mild decrease in attenuation of its parenchyma and no evidence of focal lesions. Mild ascites is seen. Gallbladder, spleen, pancreas and bilateral adrenal glands are unremarkable. No hydronephrosis or nephrolithiasis is seen. Urinary bladder is partially decompressed which limits evaluation. Prostate gland is not enlarged. Large left inguinal hernia is seen containing nondilated loop of large bowel. Small hiatal hernia is seen. Small amount of fluid collection is seen surrounding distal aspect of esophagus. Bowel loops are nondilated. Appendix is not well seen. No free intra-abdominal gas is seen. Diffuse mesenteric edema and mild ascites is seen. Small amount of free fluid is also seen within retroperitoneal region. Multiple small lymph nodes are seen within the retroperitoneal region. No definite lymphadenopathy seen within mesentery. Osseous structures: Multilevel degenerative changes of the spine. Old fracture deformity of the right iliac bone. Diffuse subcutaneous edema is seen. IMPRESSION: 1. No evidence of aortic dissection, aneurysmal dilatation, aortic wall hematoma or fractures seen. 2. Large left inguinal hernia containing nondilated loop of large bowel. No evidence of bowel obstruction. 3. Mild ascites, anasarca and diffuse mesenteric edema most likely representing edematous state and not acute intra-abdominal process. 4. Normal appearance of the bowel and solid organs. ACT 112: Negative or not required by law. The above report was generated using voice recognition software. It may contain grammatical, syntax or spelling errors. Electronically signed by: Catherine Robertson DO 09/24/2020 2:33 AM Chest CTA 09/24/20 01:40 CT ANGIOGRAM OF THE CHEST COMBO CLINICAL HISTORY: Diaphoresis COMPARISON STUDY: None TECHNIQUE: Before and following the IV administration of 180 cc of Optiray, CT angiogram of the chest was performed from the thoracic inlet to the upper abdomen utilizing the dissection protocol. Images are reviewed in the axial, sagittal, and coronal planes. 3-D MIPS images are created and assessed. IV contrast was administered without complication. A dose lowering technique was utilized adhering to the principles of ALARA. CT DOSE: FINDINGS: Thoracic aorta is normal in caliber without evidence of dissection, hematoma or aneurysmal dilatation. Pulmonary artery is normal in caliber. Opacification within pulmonary artery is insufficient for evaluation for pulmonary artery embolus. There is no axillary, supra clavicle or internal mammary lymphadenopathy seen. There are multiple mottled mediastinal and hilar lymph nodes are seen measuring up to 1.8 cm in short axis. Thyroid: Imaged portions of the thyroid gland are normal in size and attenuation. Heart: Mild four-chamber cardiomegaly. Mild pericardial effusion is seen. Lungs and pleural spaces: Tracheobronchial tree is patent. There is 3.3 x 4.0 cm subpleural mass within left lower lobe with central area of decrease attenuation which might represent neoplastic or infectious process. Due to decreased attenuation within center of this mass pulmonary infarct is also possible. Small area of groundglass attenuation is seen at dependent portion of the right lower lobe. Trace bilateral pleural effusion is seen.. Skeletal structures: No definite aggressive osseous lesions are seen. Mild degenerative changes of the spine. Bilateral gynecomastia is seen. IMPRESSION: 1. Normal appearance of thoracic aorta without aneurysmal dilatation or dissection. 2. Mild four-chamber cardiomegaly. Pericardial effusion is seen. 3. Mediastinal lymphadenopathy. Questionable mass within left lower lobe as detailed above. Please correlate above-mentioned findings with prior history of neoplastic process. 4. Bilateral gynecomastia. Resident Activity Tracking Resident Involvement: Resident Care Provided Care Provided: Adult [facility]
[2020-09-26 07:39] LABS: Partial Thromboplastin Ratio 1.1; Partial Thromboplastin Time 28.8 Seconds (21.0-31.0)
--- NOTE | 2020-09-26 07:44 | Electrocardiogram Report ---
Test Reason : Blood Pressure : / mmHG Vent. Rate : 092 BPM Atrial Rate : 092 BPM P-R Int : 188 ms QRS Dur : 174 ms QT Int : 442 ms P-R-T Axes : 061 034 219 degrees QTc Int : 546 ms Sinus rhythm with Fusion complexes Left atrial enlargement Left bundle branch block Abnormal ECG When compared with ECG of 25-SEP-2020 05:23, Fusion complexes are now Present Confirmed by Bertin Mendez ([id number]) on 09/26/2020 7:44:31 AM Referred By: REFERRED SELF Confirmed By:Waldemar Mendez
[2020-09-26 07:46] LABS: Calcium 8.4 mg/dl (8.5-10.1); Creatinine Clr Calc Pharmacy 97.3 ml/min; Est GFR (African American) 76.6 ml/min; Est GFR (Non-African American) 66.1 ml/min; Magnesium 1.8 mg/dl (1.8-2.4); Phosphorus 2.7 mg/dl (2.5-4.9); Potassium 3.7 mmol/L (3.5-5.1)
[2020-09-26] MEDS: ATORVASTATIN 40 MG TAB PO SCH (08:36)
[2020-09-26] MEDS: ASPIRIN 81 MG ECTAB PO SCH (08:36)
[2020-09-26] MEDS: carvediloL 3.125 MG TAB PO SCH ×2 (08:36→20:00)
[2020-09-26] MEDS: DOXYCYCLINE HYCLATE 100 MG CAP PO SCH ×2 (08:37→19:59)
[2020-09-26] MEDS: FUROSEMIDE 40 MG in SYRINGE 0 ML IV SCH ×2 (08:37→16:39)
[2020-09-26] MEDS: SACUBITRIL-VALSARTAN 24-26 MG TAB PO SCH ×2 (10:08→19:59)
--- NOTE | 2020-09-26 10:21 | Cardiology Progress Note ---
Date of Service September 26, 2020 Assessment & Plan (1) Acute systolic CHF (congestive heart failure): (2) Cardiomyopathy: (3) LBBB (left bundle branch block): (4) Elevated LFTs: (5) Elevated troponin: (6) Ventricular tachycardia: (7) Hypertension: ASSESSMENT/PLAN: 1. Acute systolic CHF: Clinically improving. His recorded output yesterday was disappointing, but this could be artifactual or related to a recording error. He feels that his edema is improved. He will need continued diuresis. Renal function and electrolytes are stable. At some point we will transition him to an oral regimen and he can continue his diuresis as an outpatient. 2. Cardiomyopathy: Unclear etiology. Iron studies did not suggest hemochromatosis. Remaining laboratory tests still pending. Will continue carvedilol. Started on Entresto this morning. Spironolactone can also be added, likely tomorrow morning. 3. LBBB: More recent EKGs are suggestive of a nonspecific intraventricular conduction delay. 4. Elevated transaminase levels: Probably due to hepatic congestion. 5. Elevated troponin: Due to his cardiomyopathy and decompensation. 6. Hypertension: Gradually increasing his medications for better control. 7. Nonsustained ventricular tachycardia: No recurrence 8. Lung mass: Outpatient follow-up planned Admission and Anticipated Discharge Date Admission Date: September 24, 2020 Subjective This morning patient claimed he feeling well. He has not ambulated much, but was anxious to ambulate more now that he is disconnected from his IV. He did not report dizziness or lightheadedness getting back and forth to the bathroom. He denies any sense of palpitations. No chest pain. He feels that his edema continues to improve in that his upper thighs are less swollen. Review of Systems Review of Systems: Per HPI Physical Exam Physical Exam: The patient is alert and oriented. Mood and affect appeared normal. He answered all questions appropriately. HEENT: Pupils are equal and reactive to light and accommodation. Extraocular movements are intact. The sclerae are anicteric. Neuro: Cranial nerves intact Lungs: Crackles throughout both lungs mendez. Normal respiratory effort. No expiratory wheezing. Cardiac: Heart demonstrates a regular rate and rhythm. Normal S1 and S2. No murmurs on examination. Pulses: The patient has palpable radial pulses bilaterally that are equal in intensity Extremities: There was no evidence of hypoperfusion. There is no cyanosis or clubbing. Mild to moderate bilateral lower extremity edema Skin: I did not appreciate any rashes on examination today. Results & Data ([facility]) Vital Signs (Past 12 Hours) Vital Signs Temp Pulse Pulse Resp BP BP Pulse Ox 09/26/20 08:11 36.4 C L 94 H 16 152/105 H 100 09/26/20 07:18 92 H 09/26/20 04:53 149/95 H 128/88 09/26/20 03:48 147/108 H 137/102 H 09/26/20 03:30 36.5 C 92 H 16 141/103 H 146/116 H 98 09/25/20 23:59 89 09/25/20 23:11 36.5 C 90 16 127/89 97 09/25/20 22:25 132/96 Laboratory Results Abnormal Lab Results 09/25/20 09/25/20 09/25/20 06:45 12:02 16:29 WBC RBC Hgb Hct MCV MCH MCHC RDW Std Deviation RDW Coeff of Camryn Plt Count MPV Immature Gran % (Auto) Neut % (Auto) Lymph % (Auto) Branch % (Auto) Eos % (Auto) Baso % (Auto) Neut # (Auto) Lymph # (Auto) Branch # (Auto) Eos # (Auto) Baso # (Auto) Immature Gran # (Auto) APTT PTT Ratio Sodium 136 136 Potassium 3.4 L 3.5 Chloride 104 103 Carbon Dioxide 25 26 Anion Gap 7.0 7.0 BUN 27 H 28 H Creatinine 1.32 1.53 H Est Cr Clr Drug Dosing 97.3 84.0 Est GFR ( Amer) 76.6 64.1 Est GFR (Non-Af Amer) 66.1 55.3 BUN/Creatinine Ratio 20.1 H 18.5 Glucose 114 H 94 Calcium 8.5 8.7 Phosphorus Magnesium Total Bilirubin 2.0 H Direct Bilirubin 0.9 H AST 67 H ALT 207 H Alkaline Phosphatase 54 Troponin I 0.165 H* Total Protein 6.6 Albumin 3.1 L 09/26/20 09/26/20 09/26/20 07:14 07:14 07:14 WBC 8.38 RBC 5.42 Hgb 16.0 Hct 49.2 MCV 90.8 MCH 29.5 MCHC 32.5 RDW Std Deviation 48.5 H RDW Coeff of Camryn 14.8 H Plt Count 304 MPV 9.1 Immature Gran % (Auto) 0.2 Neut % (Auto) 72.4 Lymph % (Auto) 19.0 Branch % (Auto) 7.2 Eos % (Auto) 0.8 Baso % (Auto) 0.4 Neut # (Auto) 6.07 Lymph # (Auto) 1.59 Branch # (Auto) 0.60 H Eos # (Auto) 0.07 Baso # (Auto) 0.03 Immature Gran # (Auto) 0.02 APTT 28.8 PTT Ratio 1.1 Sodium 136 Potassium 3.7 Chloride 104 Carbon Dioxide 29 Anion Gap 4.0 BUN 26 H Creatinine 1.32 Est Cr Clr Drug Dosing 97.3 Est GFR ( Amer) 76.6 Est GFR (Non-Af Amer) 66.1 BUN/Creatinine Ratio 20.0 Glucose 84 Calcium 8.4 L Phosphorus 2.7 Magnesium 1.8 Total Bilirubin Direct Bilirubin AST ALT Alkaline Phosphatase Troponin I Total Protein Albumin Diagnostic Findings Echocardiogram performed on 09/24/2020: Moderately dilated left ventricle with ejection fraction of 15-20%. Severe global hypokinesis. Moderate LVH. Moderately dilated right ventricle with moderately reduced systolic function. Severe left atrial dilation. Mild mitral regurgitation. Estimated right ventricular systolic pressure of 41 mm of mercury. PG Care Time/CCT Total # of Minutes Spent Total Time Spent with Patient: Total time spent is greater than 50% in coordination of care (as documented) at patient's floor/unit and/or counseling patient: Coding Level of Care Code 33981 Subseq Hosp Care Lvl 2 Diagnoses Acute systolic CHF (congestive heart failure) I50.21 Cardiomyopathy I42.9 LBBB (left bundle branch block) I44.7 Elevated LFTs R79.89 Elevated troponin R77.8 Ventricular tachycardia I47.2 Hypertension I10
--- NOTE | 2020-09-26 11:03 | Pulmonology Progress Note ---
Date of Service September 26, 2020 Assessment & Plan (1) Abnormal chest CT: CT chest 09/24/2020 personally reviewed: Small bilateral pleural effusions, left lower lobe 4 x 3.3 cm opacity peripheral, supradiaphragmatic. Looks like reverse halo sign Mediastinal lymphadenopathy appreciated --Abnormal chest CT Left lower lobe 4 x 3.3 cm opacity Looks like Atoll sign Patient is asymptomatic It can be seen in variety of things including but not limited to infection, a utoimmune as well as cryptogenic organizing pneumonia In autoimmune :- sarcoid, granulomatosis with polyangiitis, lipoid pneumonitis can present this way Infectious could include invasive pulmonary aspergillosis, pulmonary mucormycosis (patient is not that sick for him to have this disease.), Cocc idioidomycosis Malignancy is also in the differential were very low on the list Procalcitonin negative Autoimmune work-up has been ordered, BERNABE level ESR 8, CRP 0.[address] chest in 6-8 weeks --Mediastinal adenopathy I think this is reactive to the low ejection fraction that the patient has causing passive congestion of the lymph nodes --History of asthma Not on any inhalers at home Outpatient pulmonary follow-up for PFTs --Bilateral pleural effusion Small Continue with diuretics Plan: Continue with doxycycline for total of 5 days Bronchoscopy with BAL and TBBBx of the left lower lobe could be thought of during this admission once his cardiac status has been stabilized. Another option would be repeating a CAT scan in 8 weeks to see if that opacity still present. He said he is going to think about it and let us know Follow-up autoimmune work-up Please note the above document was generated using voice recognition software. It may contain grammatical, syntax or spelling errors.Any formal questions or concerns about the content, text or information contained within the body of this dictation should be directly addressed to the provider for clarification. (2) LAD (lymphadenopathy), mediastinal: (3) Pleural effusion: (4) Asthma: Admission and Anticipated Discharge Date Admission Date: September 24, 2020 Subjective Patient seen and examined at bedside. No acute distress, no adverse events overnight. Denies any issues with breathing. No chest pain No cough. Has been urinating well. Denies any belly pain. Fair appetite. Review of Systems Review of Systems: All systems reviewed & are unremarkable except as noted in Subjective Physical Exam Physical Exam: Constitutional: No acute distress HEENT: EOMI, PERRLA Respiratory system: Decreased air entry bilaterally, no wheeze, no rhonchi, positive crackles bilateral lower lobes CVS: S1-S2 positive, no murmurs or gallops Abdomen: Soft, nontender, nondistended, positive bowel sounds x4, obese Extremities: +2 pulses bilaterally radialis/ dorsalis pedis, no cyanosis, +3 pitting edema bilateral lower extremity Neuro: Awake alert oriented x3 Psych: Normal mood and affect G/U: No Mendoza Skin: no rashes, warm and dry Lymphatic: no cervical or axillary lymphadenopathy Results & Data Results & Data ([facility]) Vital Signs (Past 12 Hours) Vital Signs Temp Pulse Pulse Resp BP BP Pulse Ox 09/26/20 08:11 36.4 C L 94 H 16 152/105 H 100 09/26/20 07:18 92 H 09/26/20 04:53 149/95 H 128/88 09/26/20 03:48 147/108 H 137/102 H 09/26/20 03:30 36.5 C 92 H 16 141/103 H 146/116 H 98 09/25/20 23:59 89 09/25/20 23:11 36.5 C 90 16 127/89 97 09/26/20 07:14 09/26/20 07:14 PG Care Time/CCT Total # of Minutes Spent Total Time Spent with Patient: Total time spent is greater than 50% in coordination of care (as documented) at patient's floor/unit and/or counseling patient: Coding Level of Care Code 17890 Subseq Hosp Care Lvl [address] R93.89 LAD (lymphadenopathy), mediastinal R59.0 Pleural effusion J90 Asthma J45.909
--- NOTE | 2020-09-27 03:54 | Billing Data ---
Date of Service September 25, 2020 Coding Level of Care Code 60144 Subseq Hosp Care Lvl 2
--- NOTE | 2020-09-27 04:07 | Billing Data ---
Date of Service September 26, 2020 Coding Level of Care Code 16011 Subseq Hosp Care Lvl 2
--- NOTE | 2020-09-27 07:52 | Hospitalist Progress Note ---
Date of Service September 27, 2020 Assessment & Plan (1) LBBB (left bundle branch block): 40 yo male with hx of allergies and hypertension admitted for evaluation and management of new acute systolic CHF. (1) New onset HFrEF Chest CTA-mild four-chamber cardiomegaly. Mild pericardial effusion w/o tamponade. Echo- severely reduced ejection fraction 15-20% EF, global hypokinesis. Troponins downtrended, BNP elevated 17k. Cardiology consulted. Refered to heart failure program. - Cardiac cath recommended, but patient hesitant at this time - Lasix 40 mg IV BID., weight down 15lbs, cardio recommends transitioning to Bumex PO - Carvedilol 3.125 mg BID. - Lipitor 80mg po - Aspirin 81mg po - Entresto 24/ BID. - If no improvement with medical therapy, can consider biventricular ICD - may add spironolactone tomorrow (2) LBBB May be new, no EKGs for comparison, stable on repeat EKGs, likely due to IL that occurred 3 weeks ago - If no improvement with medical therapy, can consider biventricular ICD (3) CardioHepatic Congestion, improving Transaminits due to acute CHF. 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 TSH normal, A1c 5.9. Lipid:Cholesterol 69, LDL32, HDL 24 - BERNABE level, UPEP, SPEP pending - iron panel WNL - HIV pending - Anaplasma/Erlichiosis/EBV pending - CT A/P w/o mention of renal artery stenosis (5) Coronary artery disease (suspected) Lipid panel WNL as above - ASA 81 daily (6) GI symptoms Likely stemming from acute CHF with severely reduced EF resulting in diffuse edema and poor perfusion. Abdominal/ pelvis CTA- anasarca and diffuse mesenteric edema. Albumin normal - Giardia pending (7) Hypocalcemia: ICal 0.98 in ER; given calcium gluconate 1g IV. - Ca currently 8.5 (8) Lung mass Chest CTA- 3.3 x 4.0 cm subpleural mass within left lower lobe with central area of decrease attenuation which might represent neoplastic or infectious process. Pt previously lived in a moldy apartment, no smoking hx. Pulmonology consulted: fungal labs pending, started on doxycycline BID. Discussed possibility of EBUS/Bronchoscopy on sunday for examination of mass - Patient prefers to follow up on this in outpatient Dispo: tele Diet: heart healthy, low sodium DVT prophylaxis: ambulation, SCDs Code: Full code (2) Elevated troponin: (3) Cardiomegaly: (4) Elevated LFTs: (5) Hypocalcemia: (6) Lung mass: Admission and Anticipated Discharge Date Admission Date: September 24, 2020 Supervising Physician Co-Signing Physician Notes Attending attestation Pt seen and examined in concert with Dr. Serrano. In agreement with the documented findings as noted in the resident documentation with any exceptions or additions as noted here. Persistent c/o swelling of LE bilaterally without SOB with activity or laying flat. No chest pain, THOMASON, lightheadedness, n/v/d/c On examination, S1/S2 nl RRR no MCG. Decreased breath sounds of bilateral bases. Abd NT/ND BS+ve HFrEF w/ dilated cardiomyopathy, new LBBB, suspected CAD - cardiology consultation - tolerating entresto and preventative therapy well. Hesitance for further evaluation (cath) based in concern for finding worse results, fear of surgery. Transition to PO bumetanide and re-evaluate w/ I/O in AM Lung mass - noted on CTA - similarly, hesitant to pursue further evaluation at this time for reasons above. Counseled further w/u as outpatient with f/u with pulmonology Hyperlipidemia - tolerating statin therapy Transaminitis - downtrending. Follow up tick borne illness panel Else see resident documentation as noted. Subjective Patient seen at bedside. Says he is doing well, speaks quickly, good appetite, slept well, had some loose BM last night, says the swelling on his legs is much improved. Patient understands his heart needs further examination but is hesitant toward catheterization. He would like to postpone lung mass examination until later. Nurse remarked last night his BP elevated to 147/104, did not give medication. Was sinus rhythm last night. Review of Systems Review of Systems: +swelling in b/l extremities negative fever chills nausea vomitting headache dizziness constipation diarrhea numbness tingling rashes SOB palpitations Physical Exam Physical Exam: Heart: RRR, no gallops/rubs/murmurs Lungs: cta b/l, no wheezes/rales/rhonchi Extremities: +2 pitting edema b/l lower extremities, no rashes Results & Data Results & Data ([facility]) Vital Signs (Past 12 Hours) Vital Signs Temp Pulse Pulse Resp BP BP Pulse Ox 09/27/20 07:00 36.9 C 92 H 20 147/104 H 143/105 H 96 09/27/20 04:00 36.6 C 88 18 136/99 100 09/27/20 03:29 80 09/26/20 23:00 36.7 C 80 18 155/80 H 95 Laboratory Results 09/27/20 Range/Units 07:13 Sodium 141 (136-145) mmol/L Potassium 3.4 L (3.5-5.1) mmol/L Chloride 105 (98-107) mmol/L Carbon Dioxide 31 (21-32) mmol/L Anion Gap 4.0 (3-11) BUN 20 H (7-18) mg/dl Creatinine 1.09 (0.6-1.4) mg/dl Est Cr Clr Drug Dosing 115.7 ml/min Est GFR ( Amer) 96.5 ml/min Est GFR (Non-Af Amer) 83.3 ml/min BUN/Creatinine Ratio 18.7 (10-20) Glucose 74 (70-99) mg/dl Calcium 8.3 L (8.5-10.1) mg/dl Medications Administered Current Inpatient Medications Aspirin (Aspirin 81 Mg Ectab) 81 mg PO QAM [facility] Stop: 10/24/20 10:44 Last Admin: 09/26/20 08:36 Dose: 81 mg Documented by: Atorvastatin Calcium (Atorvastatin 40 Mg Tab) 80 mg PO QAM [facility] Stop: 10/25/20 08:59 Last Admin: 09/26/20 08:36 Dose: 80 mg Documented by: Carvedilol (Carvedilol 3.125 Mg Tab) 3.125 mg PO BID [facility] Stop: 10/24/20 10:44 Last Admin: 09/26/20 20:00 Dose: 3.125 mg Documented by: Doxycycline Hyclate (Doxycycline Hyclate 100 Mg Cap) 100 mg PO BID [facility] Stop: 09/29/20 20:59 Last Admin: 09/26/20 19:59 Dose: 100 mg Documented by: Furosemide 40 mg/ Syringe 4 mls @ 4 mls/min IV [id number] LORRIE Stop: 10/24/20 10:44 Last Admin: 09/26/20 16:39 Dose: 4 mls/min Documented by: Morphine Sulfate (Morphine Sulfate 2 Mg/Ml Carp) 2 mg IV Q30M PRN PRN Reason: Chest Pain Stop: 10/08/20 04:21 Nitroglycerin (Nitroglycerin Sl 0.4 Mg/Tab Tab) 0.4 mg SL UD PRN PRN Reason: Chest Pain Stop: 10/24/20 04:21 Ondansetron HCl (Ondansetron Inj 2 Mg/Ml 2 Ml Vial) 4 mg IV Q6H PRN PRN Reason: Nausea Stop: 10/24/20 04:21 Sacubitril/Valsartan (Sacubitril-Valsartan 24-26 Mg Tab) 1 tab PO BID LORRIE Stop: 10/26/20 09:59 Last Admin: 09/26/20 19:59 Dose: 1 tab Documented by: Resident Activity Tracking Resident Involvement: Resident Care Provided Care Provided: Adult Hospital Medicine
[2020-09-27] MEDS: ASPIRIN 81 MG ECTAB PO SCH (08:07)
[2020-09-27] MEDS: ATORVASTATIN 40 MG TAB PO SCH (08:07)
[2020-09-27] MEDS: carvediloL 3.125 MG TAB PO SCH ×2 (08:08→20:20)
[2020-09-27] MEDS: DOXYCYCLINE HYCLATE 100 MG CAP PO SCH ×2 (08:08→20:21)
[2020-09-27] MEDS: FUROSEMIDE 40 MG in SYRINGE 0 ML IV SCH ×2 (08:08→17:31)
[2020-09-27] MEDS: SACUBITRIL-VALSARTAN 24-26 MG TAB PO SCH ×2 (08:08→20:21)
[2020-09-27 08:17] LABS: BUN Creatinine Ratio 18.7 (10-20); Calcium 8.3 mg/dl (8.5-10.1); Creatinine Clr Calc Pharmacy 115.7 ml/min; Est GFR (African American) 96.5 ml/min; Est GFR (Non-African American) 83.3 ml/min; Potassium 3.4 mmol/L (3.5-5.1)
--- NOTE | 2020-09-27 09:19 | Pulmonology Progress Note ---
Date of Service September 27, 2020 Assessment & Plan (1) Abnormal chest CT: Impression: 40-year-old male admitted with abdominal pain nausea vomiting diaphoresis and shortness of breath. He was found to have a decreased ejection fraction. He incidentally was noted to have a subpleural complex soft tissue density with some small areas of groundglass opacity. No prior imaging for comparison available. Serologies are pending. Procalcitonin negative. Recommendations: 1. Abnormal CT scan: Discussed with the patient. We discussed a conservative versus aggressive approach. At this point time he would like to see how he responds to medical management which given his current heart failure I think is reasonable. Short-term follow-up CT scan in 6 to 8 weeks is recommended. Could consider PET scanning as well. If the lesion persists, would recommend CT- guided transthoracic needle aspiration given its subpleural location. If malignancy were identified, could then consider staging procedures with endobronchial ultrasound however I feel this is less likely. Follow-up with serologies which are currently pending. 2. Asthma: Outpatient PFTs recommended. 3. 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 The patient can follow-up with Dr. Faye with a repeat CT scan in 6 weeks time. Will sign off at this point time. Feel free to contact us if we can be of additional assistance. (2) LAD (lymphadenopathy), mediastinal: (3) Pleural effusion: Admission and Anticipated Discharge Date Admission Date: September 24, 2020 Subjective Patient seen and examined. EMR reviewed. Discussed with off going pulmono logist. The patient states he feels well. He is awake alert and conversant. He is ambulating. He is not using any supplemental oxygen. He is eating well. No chest pain palpitations fevers chills night sweats. Review of Systems Review of Systems: All systems reviewed & are unremarkable except as noted in HPI & below Physical Exam Constitutional: WD/WN, vitals as above Neck: trachea midline, no thyromegaly Respiratory: normal respiratory effort, lungs clear to auscultation Cardiovascular: RRR, no murmur, no edema Gastrointestinal (Abdomen): normal bowel sounds, soft, nontender, no hepatosplenomegaly Musculoskeletal: Extremities: extremities normal to inspection Skin: no rashes, warm and dry Neurologic: Nonfocal exam Lymphatic: no cervical lymphadenopathy Results & Data Results & Data ([facility]) Vital Signs (Past 12 Hours) Vital Signs Temp Pulse Pulse Resp BP BP Pulse Ox 09/27/20 08:00 141/103 H 09/27/20 07:00 36.9 C 92 H 20 147/104 H 143/105 H 96 09/27/20 04:00 36.6 C 88 18 136/99 100 09/27/20 03:29 80 09/26/20 23:00 36.7 C 80 18 155/80 H 95 Laboratory Results 09/26/20 07:14 09/27/20 07:13 Serologies pending PG Care Time/CCT Total # of Minutes Spent Total Time Spent with Patient: Total time spent is greater than 50% in coordination of care (as documented) at patient's floor/unit and/or counseling patient: Coding Level of Care Code 23763 Subseq Hosp Care Lvl [address] R93.89 LAD (lymphadenopathy), mediastinal R59.0 Pleural effusion J90 Time Spent (min) 36
--- NOTE | 2020-09-27 12:58 | Cardiology Progress Note ---
Date of Service September 27, 2020 Assessment & Plan (1) Acute systolic CHF (congestive heart failure): (2) Cardiomyopathy: (3) LBBB (left bundle branch block): (4) Elevated LFTs: (5) Elevated troponin: (6) Ventricular tachycardia: (7) Hypertension: ASSESSMENT/PLAN: 1. Acute systolic CHF: Clinically improving. Very brisk diuresis yesterday. I think we should work towards transitioning him to an oral regimen with which she could be discharged. I think tomorrow bumetanide 1 mg twice daily can be tried. If he continues his diuresis throughout the morning and perhaps he could be discharged with continued follow-up in the outpatient clinic. 2. Cardiomyopathy: Unclear etiology. Tolerating carvedilol and Entresto. I think adding spironolactone tomorrow morning would be worthwhile. Renal function electrolytes appear stable. 3. LBBB: Likely due to his cardiomyopathy 4. Elevated transaminase levels: Probably due to hepatic congestion. 5. Elevated troponin: Due to his cardiomyopathy and decompensation. 6. Hypertension: Improved 7. Nonsustained ventricular tachycardia: No recurrence. Very brief arrhythmia last evening consistent with an atrial tachycardia. No symptoms. 8. Lung mass: Outpatient follow-up planned Admission and Anticipated Discharge Date Admission Date: September 24, 2020 Subjective This morning the patient claims a healing well. He was told that he needs to stay in bed today, he has done minimal ambulation. However, he did not report dizziness or lightheadedness. His breathing has improved. He was quite happy with the improvement in his lower extremity edema. No sense of palpitation. Review of Systems Review of Systems: Per HPI Physical Exam Physical Exam: The patient is alert and oriented. Mood and affect appeared n ormal. He answered all questions appropriately. Neuro: Cranial nerves intact Lungs: Some rales at the bases. Upper lungs appear more clear. No expiratory wheezing. Normal respiratory effort. Cardiac: Heart demonstrates a regular rate and rhythm. Normal S1 and S2. No murmurs on examination. Pulses: The patient has palpable radial pulses bilaterally that are equal in intensity Extremities: There was no evidence of hypoperfusion. There is no cyanosis or clubbing. Mild edema Skin: I did not appreciate any rashes on examination today. Results & Data ([facility]) Vital Signs (Past 12 Hours) Vital Signs Temp Pulse Pulse Resp BP BP Pulse Ox 09/27/20 10:55 36.5 C 96 H 18 120/84 96 09/27/20 10:40 87 09/27/20 08:00 141/103 H 09/27/20 07:00 36.9 C 92 H 20 147/104 H 143/105 H 96 09/27/20 04:00 36.6 C 88 18 136/99 100 09/27/20 03:29 80 Laboratory Results Abnormal Lab Results 09/27/20 07:13 Sodium 141 Potassium 3.4 L Chloride 105 Carbon Dioxide 31 Anion Gap 4.0 BUN 20 H Creatinine 1.09 Est Cr Clr Drug Dosing 115.7 Est GFR ( Amer) 96.5 Est GFR (Non-Af Amer) 83.3 BUN/Creatinine Ratio 18.7 Glucose 74 Calcium 8.3 L Diagnostic Findings Echocardiogram performed on 09/24/2020: Moderately dilated left ventricle with ejection fraction of 15-20%. Severe global hypokinesis. Moderate LVH. Moderately dilated right ventricle with moderately reduced systolic function. Severe left atrial dilation. Mild mitral regurgitation. Estimated right ventricular systolic pressure of 41 mm of mercury. PG Care Time/CCT Total # of Minutes Spent Total Time Spent with Patient: Total time spent is greater than 50% in coordination of care (as documented) at patient's floor/unit and/or counseling patient: Coding Level of Care Code 47530 Subseq Hosp Care Lvl 2 Diagnoses Acute systolic CHF (congestive heart failure) I50.21 Cardiomyopathy I42.9 LBBB (left bundle branch block) I44.7 Elevated LFTs R79.89 Elevated troponin R77.8 Ventricular tachycardia I47.2 Hypertension I10
--- NOTE | 2020-09-27 15:13 | Heart Failure Progress Note ---
Date of Service September 27, 2020 Assessment & Plan (1) Acute systolic CHF (congestive heart failure): (2) Cardiomyopathy: (3) LBBB (left bundle branch block): Patient has been referred to the heart failure program. We discussed the nature of heart failure and the goals of the program. He is agreeable to ongoing participation. He is responding very well to Lasix 40 mg IV BID but continues to exam hypervolemic. He's negative 4.5 L so far this admission. Weight is down almost 15 lb. Kidney function and electrolytes are stable. Consider transitioning to Bumex 1 mg BID PO tomorrow. Ancipitate patient will continue to diurese as an outpatient. EF 15-20%. Cardiac catheterization recommended but patient has declined. Secondary workup is underway- TSH and iron studies are WNL. BERNABE, PEP, UPEP still pending. He's tolerating low dose Entresto and Carvedilol. BP and heart rate are adequate, heart rate is borderline tachycardic at rest. Could consider an increase in Carvedilol prior to discharge. Also planning to add Spironolactone [address] Mendez. Will continue to optimize his GDMT over the next 2-3 months. Continue daily standing weights. Strict I&Os while inpatient. Low sodium diet, less than 2,000 mg daily. Disposition: Recommend close outpatient follow up for volume management and medication titration. Follow up has been arranged for 10/04 at 2:00 pm. Admission and Anticipated Discharge Date Admission Date: September 24, 2020 Subjective Patient has been referred to the heart failure program by the cardiology service. See full cardiology consult for details. He reports he's feeling well this afternoon. He had a large diuresis yesterday. He notes significant improvement in his breathing. He still continues to have moderate lower extremity edema although improved. Results & Data ([facility]) Vital Signs (Past 12 Hours) Vital Signs Temp Pulse Pulse Resp BP BP Pulse Ox 09/27/20 10:55 97.7 F 96 H 18 120/84 96 09/27/20 10:40 87 09/27/20 08:00 141/103 H 09/27/20 07:00 98.4 F 92 H 20 147/104 H 143/105 H 96 09/27/20 04:00 97.9 F 88 18 136/99 100 09/27/20 03:29 80 PG Care Time/CCT Total # of Minutes Spent Total Time Spent with Patient: Total time spent is greater than 50% in coordination of care (as documented) at patient's floor/unit and/or counseling patient: Heart Failure Data/Metrics Heart Failure Type: Systolic Ejection Fraction: 15-20% NYHA classification: II: Sx w/ usual activity Risk Stratification: B Pacemaker: No Implanted Cardiac Defibrillator (ICD): No Bi-V Pacemaker: No Bi-V Defibrillator: No Advanced Directives Discussed/Complete: No Diabetes Mellitus: No Evidenced Based Beta Herlinda Therapy Beta Herlinda Therapy: Yes Beta Herlinda Name: Carvedilol Beta Herlinda Target Therapy: Not at Target Therapy BERNABE/ARB/ARNI Therapy BERNABE/ARB/ARNI Therapy: Yes BERNABE/ARB/ARNI Name: Entresto BERNABE/ARB/ARNI Target Therapy: Not at Target Therapy Coding Level of Care Code None Diagnoses Acute systolic CHF (congestive heart failure) I50.21 Cardiomyopathy I42.9 LBBB (left bundle branch block) I44.7
--- NOTE | 2020-09-28 06:57 | Hospitalist Progress Note ---
Date of Service September 28, 2020 Assessment & Plan Admission and Anticipated Discharge Date Admission Date: September 24, 2020 Subjective Patient seen at bedside. Patient says he is doing well, AAOx3, states leg and ankle swelling is much improved, ate and slept well voiding normally. He has spoken with the heart failure program and is scheduled with them for outpatient followup, he is excited to be discharged. As of today all medications have been transitioned to PO. Review of Systems Review of Systems: negative fever chills nausea vomitting SOB palpitations headache dizziness diarrhea constipation numbness tingling rashes Physical Exam Physical Exam: Heart: RRR, no gallops/rubs/murmurs Lungs: cta b/l, no wheezes/rales/rhonchi Extremities: +1 pitting edema to mid jarrett b/l Results & Data Results & Data ([facility]) Vital Signs (Past 12 Hours) Vital Signs Temp Pulse Pulse Resp BP Pulse Ox 09/28/20 03:57 36.5 C 97 H 20 121/82 96 09/28/20 03:09 98 H 09/27/20 23:12 36.5 C 101 H 20 129/90 97 09/27/20 19:29 36.9 C 104 H 24 133/91 97 Laboratory Results 09/28/20 09/28/20 09/25/20 Range/Units 07:09 07:09 01:08 WBC 5.95 (4.8-10.8) K/uL RBC 5.81 (4.7-6.1) M/uL Hgb 17.1 (14.0-18.0) g/dL Hct 52.6 H (42-52) % MCV 90.5 (80-100) fL MCH 29.4 (25-34) pg MCHC 32.5 (32-36) g/dL RDW Std Deviation 48.6 H (36.4-46.3) fL RDW Coeff of Camryn 15.0 H (11.5-14.5) % Plt Count 237 (130-400) K/uL MPV 8.9 (7.4-10.4) fL Immature Gran % (Auto) 0.3 % Neut % (Auto) 63.1 % Lymph % (Auto) 24.2 % [place] % (Auto) 9.2 % Eos % (Auto) 2.5 % Baso % (Auto) 0.7 % Neut # (Auto) 3.75 (1.4-6.5) K/uL Lymph # (Auto) 1.44 (1.2-3.4) K/uL [place] # (Auto) 0.55 (0.11-0.59) K/uL Eos # (Auto) 0.15 (0-0.5) K/uL Baso # (Auto) 0.04 (0-0.2) K/uL Immature Gran # (Auto) 0.02 (0.00-0.02) K/uL Sodium 141 (136-145) mmol/L Potassium 3.8 (3.5-5.1) mmol/L Chloride 108 H (98-107) mmol/L Carbon Dioxide 28 (21-32) mmol/L Anion Gap 5.0 (3-11) BUN 20 H (7-18) mg/dl Creatinine 1.14 (0.6-1.4) mg/dl Est Cr Clr Drug Dosing 109.7 ml/min Est GFR ( Amer) 91.4 ml/min Est GFR (Non-Af Amer) 78.9 ml/min BUN/Creatinine Ratio 17.7 (10-20) Glucose 80 (70-99) mg/dl Calcium 8.4 L (8.5-10.1) mg/dl Giardia Antigen SEE NOTE Medications Administered Current Inpatient Medications Aspirin (Aspirin 81 Mg Ectab) 81 mg PO [facility] Stop: 10/24/20 10:44 Last Admin: 09/27/20 08:07 Dose: 81 mg Documented by: Atorvastatin Calcium (Atorvastatin 40 Mg Tab) 80 mg PO [facility] Stop: 10/25/20 08:59 Last Admin: 09/28/20 09:24 Dose: 80 mg Documented by: Bumetanide ([facility] 1 Mg Tab) [facility] Stop: 10/28/20 08:59 Last Admin: 09/28/20 09:43 Dose: 1 mg Documented by: Carvedilol (Carvedilol 3.125 Mg Tab) 3.125 mg PO BID [facility] Stop: 10/24/20 10:44 Last Admin: 09/28/20 09:25 Dose: 3.125 mg Documented by: Doxycycline Hyclate (Doxycycline Hyclate 100 Mg Cap) 100 mg PO BID [facility] Stop: 09/29/20 20:59 Last Admin: 09/28/20 09:24 Dose: 100 mg Documented by: Morphine Sulfate (Morphine Sulfate 2 Mg/Ml Carp) 2 mg IV Q30M PRN PRN Reason: Chest Pain Stop: 10/08/20 04:21 Nitroglycerin (Nitroglycerin Sl 0.4 Mg/Tab Tab) 0.4 mg SL UD PRN PRN Reason: Chest Pain Stop: 10/24/20 04:21 Ondansetron HCl (Ondansetron Inj 2 Mg/Ml 2 Ml Vial) 4 mg IV Q6H PRN PRN Reason: Nausea Stop: 10/24/20 04:21 Sacubitril/Valsartan (Sacubitril-Valsartan 24-26 Mg Tab) 1 tab PO BID [facility] Stop: 10/26/20 09:59 Last Admin: 09/28/20 09:26 Dose: 1 tab Documented by: Spironolactone (Spironolactone 12.5 Mg Tab) 12.5 mg PO DAILY [facility] Stop: 10/28/20 08:59 Last Admin: 09/28/20 09:43 Dose: 12.5 mg Documented by: Resident Activity Tracking Resident Involvement: Resident Care Provided Care Provided: Adult Hospital Medicine
[2020-09-28 07:29] LABS: Basophils # (auto) 0.04 K/uL (0-0.2); Basophils % (auto) 0.7 %; Eosinophils # (auto) 0.15 K/uL (0-0.5); Eosinophils % (auto) 2.5 %; Hematocrit (blood only) 52.6 % (42-52); Hemoglobin 17.1 g/dL (14.0-18.0); Immature Granulocytes # (auto) 0.02 K/uL (0.00-0.02); Immature Granulocytes % (auto) 0.3 %; Lymphocytes # (auto) 1.44 K/uL (1.2-3.4); Lymphocytes % (auto) 24.2 %; Mean Corpuscular Hemoglobin 29.4 pg (25-34); Mean Corpuscular Hgb Conc 32.5 g/dL (32-36); Mean Corpuscular Volume 90.5 fL (80-100); Mean Platelet Volume 8.9 fL (7.4-10.4); Monocytes # (auto) 0.55 K/uL (0.11-0.59); Monocytes % (auto) 9.2 %; Neutrophils # (auto) 3.75 K/uL (1.4-6.5); Neutrophils % (auto) 63.1 %; Platelet Count 237 K/uL (130-400); RDW Standard Deviation 48.6 fL (36.4-46.3); Red Blood Count 5.81 M/uL (4.7-6.1); White Blood Count 5.95 K/uL (4.8-10.8)
[2020-09-28 07:55] LABS: BUN Creatinine Ratio 17.7 (10-20); Calcium 8.4 mg/dl (8.5-10.1); Creatinine Clr Calc Pharmacy 109.7 ml/min; Est GFR (African American) 91.4 ml/min; Est GFR (Non-African American) 78.9 ml/min; Potassium 3.8 mmol/L (3.5-5.1)
[2020-09-28] MEDS ORDERED: BUMETANIDE 1 MG TAB PO SCH (09:00)
[2020-09-28] MEDS ORDERED: SPIRONOLACTONE 12.5 MG TAB PO SCH (09:00)
[2020-09-28] MEDS: DOXYCYCLINE HYCLATE 100 MG CAP PO SCH (09:24)
[2020-09-28] MEDS: ATORVASTATIN 40 MG TAB PO SCH (09:24)
[2020-09-28] MEDS: carvediloL 3.125 MG TAB PO SCH (09:25)
[2020-09-28] MEDS: SACUBITRIL-VALSARTAN 24-26 MG TAB PO SCH (09:26)
[2020-09-28] MEDS: ASPIRIN 81 MG ECTAB PO SCH (10:46)
--- NOTE | 2020-09-28 12:59 | Discharge Summary ---
Date of Service September 28, 2020 Admission HPI Per Admitting Provider 40 yo M Hx HTN presented to ER for 1 week of intermittent abdominal pain, nausea, vomiting; with associated diaphoresis and SOB. No correlation that the patient can determine based on foods, activity. No fevers or chills, no sick contacts. Does not smoke or use drugs, no alcohol use. He denies HIV or TB risk factors, and has no tick exposures. Admits to not seeing a doctor in about 10 years, and states he has had HTN "since he was 13". In the ER patient was found to be tachycardic to 110s, with elevated BP 170/110. Labwork revealed largely normal CBC, elevated INR, low ICal, elevated LFTs, elevated troponin, elevated BNP. CXR showed significant cardiomegaly. CTA Chest showed left lung mass, mediastinal lymphadenopathy, and cardiomegaly. CTAP showed left inguinal hernia with portion of non-obstructed large bowel within, mild ascites, anasarca, and diffuse mesenteric edema. No evidence on imaging of aortic aneurysm or dissection. Admission Exam Per Admitting Provider Constitutional: well developed and + obese Eyes: PERRL, conjunctivae normal, anicteric sclerae ENMT: external ear and nose normal, oropharynx normal Neck: + thick neck no cervical lymphadenopathy Respiratory: normal respiratory effort, lungs clear to auscultation Cardiovascular: Rate/Rhythm: regular rhythm and + tachycardic Heart Sounds: no murmur Extremities: + edema (3+ pitting edema bilateral LE to knees) Gastrointestinal (Abdomen): normal bowel sounds, soft, nontender, no hepatosplenomegaly Musculoskeletal: no cyanosis or clubbing, extremities motor strength 5/5 Skin: no rashes, warm and dry Neurologic: Alert and oriented, flat affect Psychiatric: A+Ox3, euthymic affect Principal Diagnosis Heart Failure with Reduced Ejection Fraction of 15-20% Discharge Exam Heart: RRR, no gallops/rubs/murmurs Lungs: cta b/l, no wheezes/rales/rhonchi Extremities: +1 pitting edema b/l LE up to shins Constitutional well developed, well nourished, healthy appearing, cooperative and comfortable Eyes PERRL, conjunctivae normal, anicteric sclerae normal visual mendez by confrontation; no scleral abnormality and no photophobia ENMT Ears: no hearing impairment Nose: nasal mucous membranes not dry Discharge Data Allergies Allergy/AdvReac Type Severity Reaction Status Date / Time mold Allergy Intermediate Difficulty Verified 09/24/20 02:22 Breathing pollen extracts Allergy Intermediate Difficulty Verified 09/24/20 02:22 Breathing Consultations 09/24/20 02:46 ED Decision to Admit Stat 09/24/20 04:22 Consult Cardiology Routine 09/24/20 11:14 Consult Pulmonology Routine Ordered Studies 09/24/20 01:40 CT angio abd pelvis wo/w con Stat CT angio chest dissec wo/w con Stat Hospital Course (1) LBBB (left bundle branch block): 40 yo male with hx of allergies and hypertension admitted for evaluation and management of new acute systolic CHF. (1) New onset HFrEF Patient admitted to hospital for abdominal pain, SOB, leg swelling. Chest CTA revealed mild four-chamber cardiomegaly and mild pericardial effusion w/o tamponade. Echo revealed severely reduced ejection fraction 15-20% EF with global hypokinesis. EKG revealed LBBB likely due to WI. Troponins downtrended, BNP elevated 17k. Cardiology consulted, referred to heart failure program, recommended medication and catheterization. Patient declined cardiac catheterization. Family medicine explained benefits and risks of cardiac catheterization. Patient again declined cardiac catheterization. Patient stabilized in hospital and was transitioned to oral medication for discharge. Patient discharged on atorvastatin, ASA, carvedilol, bumex, entresto, spironolactone. If no improvement with medical therapy, can consider biventricular ICD - Patient is scheduled for followup with outpatient cardiology, outpatient labs - Follow up labs with primary care outpatient (2) LBBB See above (3) CardioHepatic Congestion, improving Patient found with transaminitis likely due to acute CHF. Hepatic panel negative, no masses or lesions or signs or cirrhosis appreciated on CTAP. Ordered tick borne illnesses panel, results pending. 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 A/P did not mention renal artery stenosis. TSH normal, A1c 5.9. Lipid:Cholesterol 69, LDL32, HDL 24. Iron panel WNL. Other labs to investigate origin of cardiomyopathy and HTN pending, follow up in outpatient with primary care. - BERNABE level, UPEP, SPEP pending - HIV pending - Tick borne illness labs pending (5) Coronary artery disease (suspected) Patient presented with LBBB thought to be caused by WI. Patient refused cardiac catheterization. Lipid panel WNL as above. Patient started on atorvastatin, ASA, carvedilol, bumex, entresto, spironolactone. (6) GI symptoms Patient admitted to hospital with abdominal pain, nausea and vomitting. Likely stemming from acute CHF with severely reduced EF resulting in diffuse edema and poor perfusion. Abdominal/ pelvis CTA revealed anasarca and diffuse mesenteric edema. Albumin was normal, Giardia negative. Symptoms resolved with cardiac management. (7) Hypocalcemia: Calcium was found to be low on initial labs, ICal 0.98 in ER; given calcium gluconate 1g IV. Ca currently 8.5, issue is resolved. (8) Lung mass On chest CTA patient was found to have a 3.3 x 4.0 cm subpleural mass within left lower lobe with central area of decrease attenuation which might represent neoplastic or infectious process. Pt previously lived in a moldy apartment, no smoking hx. Pulmonology consulted, started on doxycycline BID. Pulmonology and Family Medicine discussed possibility of EBUS/Bronchoscopy for examination of mass, patient declined investigation in hospital and would like to follow up outpatient in several months. (2) Cardiomegaly: (3) Elevated LFTs: (4) Hypocalcemia: (5) Lung mass: Total Time Total Time Spent Total Time Spent (In Minutes): 48 min Discharge Plan Discharge Items Patient Disposition: Home - Self-Care Reason For Visit: LBBB, ELEVATED TROP, L LUNG MASS, CARDIOMEGALY, HT Discharge Diagnosis: Heart Failure with Reduced Ejection Fraction of 15-20% Condition on Discharge: Fair Activity: Resume your previous activity Non-emergency contact: Primary Care Provider Call non-emergency contact if: you have any medication questions and your symptoms worsen Follow-up/Referrals: Asuncion Marie PA-C [Physician Radio Station Engineer] - 10/04/20 2:00 pm (Congestive Heart Failure Program Appointment Information Early follow up is essential to managing your heart failure. An appointment has been scheduled for you with the [facility] Heart Failure Program within 7 days of discharge. Anticipate this visit to be 30-60 minutes long. Please expect a dispatch machine runner phone call from one of our nurses approximately 48 hours from discharge. They will also be placing an order for lab work to be completed 1-2 days prior to your heart failure follow up appointment. Please be sure to have this done so we can go over the results when you come in. Office Location The cardiology office building is located in front of the hospital at [address] [address] [facility] [address]. Bring the following with you to your follow-up doctor appointments: Please bring your daily weight log any discharge paperwork all of your medication bottles with you to this visit. ) PCP,NO [Physician] - 10/01/20 12:00 pm (DR MARIE) Diet: Regular Addtl Attending Provider Instructions: Call your Primary Care doctor if any of the following symptoms or problems start or get worse: * Shortness of breath or difficulty breathing * Wake up at night short of breath * Chest pain * Cough * Swelling of your hands, feet, or legs * More fatigued or tired with your normal activity * Palpitations - sudden fast heart beats WEIGHT * Weigh yourself every morning after using the bathroom. * Use the same scale. * Wear the same amount of clothing. * Write your weight down on a chart. * Call your Primary Care doctor if you gain more than 2-3 pounds in 1-2 days. MEDICATIONS * Use this discharge instruction sheet for medication instructions. * Take your medications at the time your doctor ordered. * Do not skip a dose of your medicines. * If you miss a dose of medicine, take it as soon as possible, but DO NOT DOUBLE A DOSE. * Read your medicine information when you get home. * Know all of the side effects of your medicine. If in doubt, ask your pharmacist * Call your Primary Care doctor's office if you have any side effects. * Be sure all of your doctors know what medicine and herbs you take (including cold, flu, and herbal medicine). Take the following with you to your follow-up doctor appointments: * Weight Chart * Medication List * List of questions Do not drink excessive alcohol, beer or wine. Pending Studies at Discharge: Yes Studies:: Tick borne illness labs Stand-Alone Forms: My [employer], Work/School Release, Smoking Cessat ion Medications and DC Order Prescriptions: New atorvastatin 40 mg Tablet 80 mg PO QAM 30 Days Qty: 60 RF: 1 carvedilol 3.125 mg Tablet 3.125 mg PO BID 30 Days Qty: 60 RF: 1 aspirin 81 mg Tablet,Delayed Release (Dr/Ec) 81 mg PO QAM 30 Days Qty: 30 RF: 0 spironolactone 25 mg Tablet 12.5 mg PO DAILY 30 Days Qty: 15 RF: 1 bumetanide 1 mg tablet 1 mg PO QAM 30 Days Qty: 30 RF: 1 doxycycline hyclate 100 mg Capsule 100 mg PO BID 30 Days Qty: 60 RF: 1 Entresto 24-26 mg Tablet 1 tab PO BID 30 Days Qty: 60 RF: 1 Discharge Orders: Discharge Order (Routine); Ordered 09/28/20 Ordered By: Racheal Monae/Other Patient Handouts: Heart Failure Meds, Controlling High Blood Pressure, What Is Heart Failure, Heart Failure Signs of Flare-Up, Heart Failure: Tracking Your Weight, Heart Failure: Being Active, Medicines for Cardiomyo prerna, What Is High Blood Pressure?, Heart Failure Procedures, Coping with Heart Failure, Heart Failure Making Changes to ..., Heart Failure: Evaluating Your Heart, Cardiomyopathy Dc, Heart Failure Dc, Hypertension Dc, Identifying Your Heart Risks, Eating Heart-Healthy Foods, Understanding Left Bundle Branch Block, Treatment for Left Bundle Branch Block, My Heart Failure Symptoms Chart, Heart Failure: Know Your Baselines, Heart Failure Sleep Problems, Heart Failure: Travel Concerns, ED Hypertension, New (Begin Treatment), Heart Failure Admission Data Admit Date/Time: 09/24/20 04:22 Attending Provider: Dale Shi Admit Provider: Opal Medina Primary Care Provider: Rose Currie Other Providers: Chela Sapp ; Kamran Tapia ; Harleen Stallings Other Interventions: Discharge Summary Assessment (RN) Last Done: 09/28/20 17:50 Supervising Physician Co-Signing Physician Notes Attending attestation Pt seen and examined in concert with Dr. Serrano. In agreement with the documented findings as noted in the resident documentation with any exceptions or additions as noted here. Significant improvement in b/l LE edema with diuresis overnight and today. Still denies chest pain, THOMASON, lightheadedness, n/v/d/c. Still hesitant re: further procedure and evaluation. Encouraged strongly to follow up with PCP and for further investigation 2/2 recurrent and worsening nature of suspected underlying cardiac and pulmonary disease. On examination, S1/S2 nl RRR no MCG. Decreased breath sounds of bilateral bases. Abd NT/ND BS+ve. 1+ pitting edema to the midshin. HFrEF w/ dilated cardiomyopathy, new LBBB, suspected CAD - cardiology consult - continue entresto, carvedilol and atorvastatin. Bumetanide daily with daily weights and precautions re: weight loss and sodium intake. Follow up set with cards and STRONGLY encourage further evaluation and monitoring. Lung mass - noted on CTA - hesitant to pursue further evaluation at this time. Counseled further w/u as outpatient with f/u with pulmonology but has not made appointment at time of D/C, would strongly encourage same. Will complete course of doxycycline for ?infectious etiology, may warrant repeat CXR at or around follow up based on response and symptoms. Hyperlipidemia - tolerating statin therapy Else see resident documentation as noted. Total attending time spent on this case on the day of discharge: 35 min Resident Activity Tracking Resident Involvement: Resident Care Provided Care Provided: Adult Hospital Medicine
[2020-09-28 13:27] LABS: Creatinine Ur 37 mg/dL (20-320); Protein, Urine Random 34 mg/dL (5-25); Ur Protein/Creat Ratio mg/g 919 mg/g creat (22-128); Urine Abnormal Protein Band 1 DNR mg/dL (NONE DETECTED); Urine Abnormal Protein Band 2 DNR mg/dL (NONE DETECTED); Urine Abnormal Protein Band 3 DNR mg/dL (NONE DETECTED); Urine Protein/Creatinine Ratio 0.919 (0.022-0.128)
--- NOTE | 2020-09-28 15:21 | Cardiology Progress Note ---
Date of Service September 28, 2020 Assessment & Plan (1) Acute systolic CHF (congestive heart failure): (2) Cardiomyopathy: (3) LBBB (left bundle branch block): The patient is much improved. I think he could be safely discharged on his current medical regimen. He has close follow-up scheduled in the outpatient setting for evaluation of electrolytes and continued diuresis. Admission and Anticipated Discharge Date Admission Date: September 24, 2020 Subjective This afternoon the patient clinically feeling well. He reported being ambulatory without significant dizziness or lightheadedness. Breathing much improved. No limiting dyspnea. Edema improved. Review of Systems Review of Systems: Per HPI Physical Exam Physical Exam: The patient is alert and oriented. Mood and affect appeared normal. He answered all questions appropriately. Neuro: Cranial nerves intact Lungs: Some rales at the bases. Upper lungs appear more clear. No expiratory wheezing. Normal respiratory effort. Cardiac: Heart demonstrates a regular rate and rhythm. Normal S1 and S2. No murmurs on examination. Pulses: The patient has palpable radial pulses bilaterally that are equal in intensity Extremities: There was no evidence of hypoperfusion. There is no cyanosis or clubbing. Mild edema Skin: I did not appreciate any rashes on examination today. Results & Data ([facility]) Vital Signs (Past 12 Hours) Vital Signs Temp Pulse Resp BP Pulse Ox 09/28/20 11:35 37.0 C 111 H 18 133/88 97 09/28/20 08:01 36.9 C 92 H 18 132/98 99 09/28/20 03:57 36.5 C 97 H 20 121/82 96 Laboratory Results Abnormal Lab Results 09/24/20 09/24/20 09/25/20 01:35 15:45 01:08 WBC RBC Hgb Hct MCV MCH MCHC RDW Std Deviation RDW Coeff of Camryn Plt Count MPV Immature Gran % (Auto) Neut % (Auto) Lymph % (Auto) [place] % (Auto) Eos % (Auto) Baso % (Auto) Neut # (Auto) Lymph # (Auto) [place] # (Auto) Eos # (Auto) Baso # (Auto) Immature Gran # (Auto) Sodium Potassium Chloride Carbon Dioxide Anion Gap BUN Creatinine Est Cr Clr Drug Dosing Est GFR ( Amer) Est GFR (Non-Af Amer) BUN/Creatinine Ratio Glucose Calcium U Random Total Protein 34 H Ur Creatinine mg/dL 37 Protein/Creatinin Ratio 0.919 H Urine Albumin (%) 68 U Pgwwt-6-Lvebyihb (%) 5 U Amphs-9-Ezrfeobl (%) 5 U Beta Globulin (%) 10 U Gamma Globulin (%) 12 U Abnormal Prot Band 1 DNR U Abnormal Prot Band 2 DNR U Abnormal Prot Band 3 DNR Urine PEP Interpret SEE NOTE A. phagocytophilum DNA Detected A Giardia Antigen SEE NOTE 09/28/20 09/28/20 07:09 07:09 WBC 5.95 RBC 5.81 Hgb 17.1 Hct 52.6 H MCV 90.5 MCH 29.4 MCHC 32.5 RDW Std Deviation 48.6 H RDW Coeff of Camryn 15.0 H Plt Count 237 MPV 8.9 Immature Gran % (Auto) 0.3 Neut % (Auto) 63.1 Lymph % (Auto) 24.2 [place] % (Auto) 9.2 Eos % (Auto) 2.5 Baso % (Auto) 0.7 Neut # (Auto) 3.75 Lymph # (Auto) 1.44 [place] # (Auto) 0.55 Eos # (Auto) 0.15 Baso # (Auto) 0.04 Immature Gran # (Auto) 0.02 Sodium 141 Potassium 3.8 Chloride 108 H Carbon Dioxide 28 Anion Gap 5.0 BUN 20 H Creatinine 1.14 Est Cr Clr Drug Dosing 109.7 Est GFR ( Amer) 91.4 Est GFR (Non-Af Amer) 78.9 BUN/Creatinine Ratio 17.7 Glucose 80 Calcium 8.4 L U Random Total Protein Ur Creatinine mg/dL Protein/Creatinin Ratio Urine Albumin (%) U Dsawr-7-Kxgqmtie (%) U Ucccw-3-Ktqsrgnk (%) U Beta Globulin (%) U Gamma Globulin (%) U Abnormal Prot Band 1 U Abnormal Prot Band 2 U Abnormal Prot Band 3 Urine PEP Interpret A. phagocytophilum DNA Giardia Antigen Diagnostic Findings Echocardiogram performed on 09/24/2020: Moderately dilated left ventricle with ejection fraction of 15-20%. Severe global hypokinesis. Moderate LVH. Moderately dilated right ventricle with moderately reduced systolic function. Severe left atrial dilation. Mild mitral regurgitation. Estimated right ventricular systolic pressure of 41 mm of mercury. PG Care Time/CCT Total # of Minutes Spent Total Time Spent with Patient: Total time spent is greater than 50% in coordination of care (as documented) at patient's floor/unit and/or counseling patient: Coding Level of Care Code 62179 Subseq Hosp Care Lvl 2 Diagnoses Acute systolic CHF (congestive heart failure) I50.21 Cardiomyopathy I42.9 LBBB (left bundle branch block) I44.7
[2020-09-29 18:56] LABS: Fungitell (1-3)-B-D-Glucan <31
[2020-09-30 00:01] LABS: Angiotensin Converting Enzyme 35 U/L (9-67); Babesia microti IgG <1:64 titer (<1:64); CMV IgG Antibody <0.60 U/mL; CMV IgM Antibody <30.00 AU/mL; EBV DNA Quant PCR <200 copies/mL (<200); EBV DNA Quant Source Whole Blood; Ehrlichia chaff IgG Ab <1:64 (<1:64); Ehrlichia chaff IgM Ab <1:20 (<1:20); HIV 1 RNA PCR Copies/ML <20 Copies/mL; HIV-1 RNA Log Copies/mL <1.30 Log cps/mL
[2020-10-01 12:22] LABS: Albumin 3.3 g/dL (3.8-4.8); Alpha 1 Globulin 0.3 g/dL (0.2-0.3); Alpha 2 Globulin 0.6 g/dL (0.5-0.9); Angiotensin Converting Enzyme 33 U/L (9-67); Anti Cardiolipin Ab IgM <2.0 MPL-U/mL; Anti Nuclear Antibody Screen NEGATIVE (NEGATIVE); Anti-Cardiolipin Ab IgA <2.0 APL-U/mL; Anti-Centromere Ab <1.0 NEG AI (<1.0 NEG); Anti-SS-A <1.0 NEG AI (<1.0 NEG); Anti-SS-B <1.0 NEG AI (<1.0 NEG); Beta-1-Globulin 0.4 g/dL (0.4-0.6); Beta-2-Globulin 0.3 g/dL (0.2-0.5); Chromatin Antibody <1.0 NEG AI (<1.0 NEG); Complement C3 99 mg/dL (82-185); DNA ds Crithidia NEGATIVE (NEGATIVE); Gamma Globulin 1.1 g/dL (0.8-1.7); Microsomal Ab <1 IU/mL (<9); Monoclonal Protein Band 1 DNR g/dL (NONE DETECTED); Monoclonal Protein Band 2 DNR g/dL (NONE DETECTED); Monoclonal Protein Band 3 DNR g/dL (NONE DETECTED); RNP Antibody <1.0 NEG AI (<1.0 NEG); Scleroderma Anti Scl-70 Ab <1.0 NEG AI (<1.0 NEG); Sm Antibody 1.1 POS AI (<1.0 NEG); Total Protein 5.9 g/dL (6.1-8.1)
--- NOTE | 2020-10-12 09:35 | Coding Query ---
CODING QUERY To promote full compliance with coding requirements relating to patient care, provider participation is requested in all cases of care management specialist uncertainty. Please assist us with the question(s) below: Coding Question(s): Patient admitted with new onset acute systolic heart failure and LBBB, elevated Trononen. DS mentioned LBBB possibly due to NH? Trononin trending down.Patient refused cardiac cath. Seeking to clarify if patient was treated for a Myocardial Infarction during this inpatient stay. Please check the appropriate phrase. Thank you . Jordan Schultz, [place] [facility] . Physician's Response(s): Patient had a Myocardial Infarction , Present on Admission Patient did not have a Myocardial Infarction. x Cannot Clinically Correletate if patient had a Myocardial Infarction Other: Please document: Suspicious for same, just no evidence for same. Principal Diagnosis: "that condition established after study, to be chiefly responsible for occasioning the admission of the patient to the hospital for care." Co-Existing Principal Diagnosis: "when two or more diagnoses equally meet the criteria for principal diagnosis as determined by the circumstances of admission, diagnostic work up, and/or therapy provided, and the Alphabetic Index, Tabular List, or another coding guideline does not provide sequencing direction, any one of the diagnoses may be sequenced first." "When the physician has documented what appears to be a current diagnosis in the body of the record, but has not included the diagnosis in the final diagnostic statement, the physician should be asked whether the diagnosis should be added." (Source [facility]oding [facility] 2 QTR90. p3-4) SABRINA
== END 2020-09-28 19:26 | disposition home or self-care (01) | DRG 291 ==
LOC: ED 00:54 → 2S 04:22 → SUATTDRO 04:22 → 2S 08:38 → 2N 09-26 16:02
DX: I25.10 Atherosclerotic heart disease of native coronary artery without angina pectoris; I50.21 Acute systolic (congestive) heart failure; R94.8 Abnormal results of function studies of other organs and systems; I44.7 Left bundle-branch block, unspecified; I42.0 Dilated cardiomyopathy; Z53.29 Procedure and treatment not carried out because of patient's decision for other reasons; R79.89 Other specified abnormal findings of blood chemistry; R74.01 Elevation of levels of liver transaminase levels; I31.3 Pericardial effusion (noninflammatory); I47.2 Ventricular tachycardia; J91.8 Pleural effusion in other conditions classified elsewhere; J98.4 Other disorders of lung; J45.909 Unspecified asthma, uncomplicated; R59.1 Generalized enlarged lymph nodes; E83.51 Hypocalcemia; I11.0 Hypertensive heart disease with heart failure; Z82.49 Family history of ischemic heart disease and other diseases of the circulatory system